=== PATIENT | female | born 1970 | race Caucasian/White ===

== ENCOUNTER 2019-02-15 14:01 | Inpatient (IN) | payer MEDICAID, MEDICARE ==
[2019-02-15 15:35] LABS: URINE SOURCE CLEAN C
[2019-02-15 15:39] LABS: URINE BILIRUBIN NEGATIVE (NEGATIVE); URINE BLOOD NEGATIVE (NEGATIVE); URINE GLUCOSE (UA) NEGATIVE (NEGATIVE); URINE KETONE NEGATIVE (NEGATIVE); URINE LEUKOCYTE ESTERASE NEGATIVE (NEGATIVE); URINE NITRATE NEGATIVE (NEGATIVE); URINE PROTEIN NEGATIVE (NEGATIVE); URINE UROBILINOGEN 0.2 E.U./dL (0.2 - 1.0)
[2019-02-15 15:46] LABS: URINE BACTERIA FEW /hpf (NONE SEEN); URINE CLARITY CLEAR (CLEAR); URINE COLOR YELLOW; URINE EPITHELIAL CELLS FEW /lpf (FEW); URINE MICROSCOPIC INDICATED? YES; URINE RBC 0-2 /hpf (0-5); URINE WBC 0-2 /hpf (0-5)
[2019-02-15 15:56] LABS: AMPHETAMINE URINE NEGATIVE (NEGATIVE); BARBITURATES URINE NEGATIVE (NEGATIVE); BENZODIAZEPINES QUAL URINE NEGATIVE (NEGATIVE); CANNABINOID THC NEGATIVE (NEGATIVE); COCAINE METABOLITE QUAL URINE NEGATIVE (NEGATIVE); METHADONE URINE NEGATIVE (NEGATIVE); METHAMPHETAMINES QUAL URINE NEGATIVE (NEGATIVE); OPIATES (MORPHINE) QUAL. URINE NEGATIVE (NEGATIVE); PHENCYCLIDINE (PCP) URINE NEGATIVE (NEGATIVE); TRICYCLICS (TCA) QUAL. URINE NEGATIVE (NEGATIVE)
--- NOTE | 2019-02-15 16:15 | ED Physician Chart ---
ED Chief Complaint/HPI - Patient Information Date Seen:: 02/15/19 Time Seen:: 14:15 Chief Complaint:: Agitation History of Present Illness:: onset x 2 days of agitation; no report of trauma, H/As, SIs, neck pain, C/P, SOB , Abd. Pain, or urinary s/s Allergies:: Allergies Allergy/AdvReac Type Severity Reaction Status Date / Time clonazepam [From Klonopin] Allergy Verified 02/15/19 14:26 haloperidol [From Haldol] Allergy Verified 02/15/19 14:25 meloxicam [From Mobic] Allergy Verified 02/15/19 14:26 Vitals:: Vital Signs - 8 hr 02/15/19 14:14 Temp 98.5 F HR 86 RR 16 BP 123/82 O2 Sat % 98 Historian:: Patient, EMS Review:: Nurse's Note Reviewed, Old Chart Reviewed, EMS run form Reviewed ED Review of Systems - Review of Systems General/Constitutional: No fever, No chills, No weight loss, No weakness, No diaphoresis, No edema, No loss of appetite Skin: No skin lesions, No rash, No bruising Head: No headache, No light-headedness Eyes: No loss of vision, No pain, No diplopia ENT: No earache, No nasal drainage, No sore throat, No tinnitus Neck: No neck pain, No swelling, No thyromegaly, No stiffness, No mass noted Cardio Vascular: No chest pain, No palpitations, No PND, No orthopnea, No edema Pulmonary: No SOB, No cough, No sputum, No wheezing GI: No nausea, No vomiting, No diarrhea, No pain, No melena, No hematochezia, No constipation, No hematemesis G/U: No dysuria, No frequency, No hematuria, No nacturia Director Clinical Data: No vaginal discharge, No abnormal vaginal bleed, No contraction Musculoskeletal: No bone or joint pain, No back pain, No muscle pain Endocrine: No polyuria, No polydipsia Psychiatric: Prior psych history, Depression, Anxiety, No suicidal ideation, No homicidal ideation, No auditory hallucination, No visual hallucination Hematopoietic: No bruising, No lymphadenopathy Allergic/Immuno: No urticaria, No angioedema Neurological: No syncope, No focal symptoms, No weakness, No paresthesia, No headache, No seizure, No dizziness, No confusion, No vertigo ED Past Medical History - Past Medical History Obtainable: Yes Past Medical History: HTN Family History: HTN Social History: Non Smoker, No Alcohol, No Drug Use, Single, Care Facility Surgical History: None Psychiatricy History: Depression, Bipolar Medication: Reviewed Family Medical History - Family Member Mother History Unknown: Yes ED Physical Exam - Physical Examination General/Constitutional: Awake, Well-developed, well-nourished, Alert, No distress, GCS 15, Non-toxic appearing, Ambulatory Head: Atraumatic Eyes: Lids, conjuctiva normal, PERRL, EOMI Skin: Nl inspection, No rash, No skin lesions, No ecchymosis, Well hydrated, No lymphadenopathy ENMT: External ears, nose nl, TM canals nl, Nasal exam nl, Lips, teeth, gums nl , Oropharynx nl, Tonsils nl Neck: Nontender, Full ROM w/o pain, No JVD, No nuchal rigidity, No bruit, No mass, No stridor Respiratory: Nl effort/Exclusion, Clear to Auscultation, No Wheeze/Rhonchi/Rales Cardio Vascular: RRR, No murmur, gallop, rubs, NL S1 S2, Carotid/Femoral/Distal pulses equal bilaterally GI: No tenderness/rebounding/guarding, No organomegaly, No hernia, Normal BS's, Nondistended, No mass/bruits, No McBurney tenderness : No CVA tenderness Extremities: No tenderness or effusion, Full ROM, normal strength in all extremities, No edema, Normal digits & nails Neuro/Psych: Alert/oriented, DTR's symmetric, Normal sensory exam, Normal motor strength, Judgement/insight normal, Mood normal, Normal gait, No focal deficits Other Neuro/Psych comments:: + Psychomotor Agitation; no SIs; Mood/Affect: Labile Misc: Normal back, No paraspinal tenderness ED Labs/Radiology/EKG Results - Lab Results Results: Laboratory Tests 02/15/19 02/15/19 02/15/19 14:15 15:15 15:15 Urine Source CLEAN C Urine Color YELLOW Urine Clarity CLEAR Urine pH 6.0 Ur Specific [place] <= 1.005 Urine Protein NEGATIVE Urine Glucose (UA) NEGATIVE Urine Ketones NEGATIVE Urine Blood NEGATIVE Urine Nitrate NEGATIVE Urine Bilirubin NEGATIVE Urine Urobilinogen 0.2 Ur Leukocyte Esterase NEGATIVE Urine RBC 0-2 Urine WBC 0-2 Ur Epithelial Cells FEW Urine Bacteria FEW Urine Test NEGATIVE Urine Opiates Screen NEGATIVE Urine Methadone Screen NEGATIVE Ur Barbiturates Screen NEGATIVE Ur Tricyclics Screen NEGATIVE Ur Phencyclidine Scrn NEGATIVE Amphetamines Screen NEGATIVE U Methamphetamines Scrn NEGATIVE U Benzodiazepines Scrn NEGATIVE U Cocaine Metab Screen NEGATIVE U Cannabinoids Screen NEGATIVE Comments:: Reviewed - EKG Interpretations EKG Time:: 15:03 Rate & Rhythm: 79; NSR Comments:: small T-Wave Inversions in V1 and V2; non-specific st-t changes ED Septic Shock - . Is Septic Shock (SBP<90, OR Lactate>4 mmol\L) present?: No - <6hrs of presentation: Vital Signs: Vital Signs - 8 hr 02/15/19 14:14 Temp 98.5 F HR 86 RR 16 BP 123/82 O2 Sat % 98 ED Reassessment (Disposition) - Reassessment Reassessment Condition:: Improved - Diagnosis Diagnosis:: Agitation; Medical Clearance; Bipolar Disorder - Aftercare/Follow up Instructions Aftercare/Follow-Up Instructions:: Counseled pt regarding lab results/diagnosis & need follow up, Counseled pt & family regarding lab results/diagnosis & need follow up - Patient Disposition Discharge/Transfer:: Acute Care w/in this hosp Admitted to:: [facility] Condition at Disposition:: Stable, Improved
[2019-02-15 17:08] VITALS: BP 113/78
[2019-02-15] MEDS ORDERED: Magnesium Hydroxide (MOM) 30 mL UDC PO PRN (18:15)
[2019-02-15] MEDS ORDERED: Maalox 30 mL Cup PO PRN (18:15)
[2019-02-15] MEDS: Atorvastatin Calcium 10 MG TAB PO SCH (21:11)
--- NOTE | 2019-02-15 23:18 | History & Physical ---
ADMIT DATE: 02/15/2019 HISTORY OF PRESENT ILLNESS: The patient is a 48-year-old female with long history of diabetes mellitus, hyperlipidemia, psychosis, admitted to [facility] under Dr. Saul's service. The patient denies any chest pain, shortness of breath, nausea, vomiting, fever or chills. PAST MEDICAL HISTORY: Significant for diabetes mellitus, hyperlipidemia, chronic constipation, psychosis. PAST SURGICAL HISTORY: No recent surgery. ALLERGIES: None. MEDICATIONS: Follow admission reconciliation. SOCIAL HISTORY: No smoker, no alcohol, no drug. FAMILY HISTORY: Noncontributory. REVIEW OF SYSTEMS: RENAL SYSTEM: No history of chronic renal disorder. CARDIOVASCULAR SYSTEM: No coronary artery disease. ENDOCRINE SYSTEM: She has diabetes mellitus. GASTROINTESTINAL SYSTEM: She has chronic constipation. NEUROLOGICAL SYSTEM: No seizure disorder. SKELETOMUSCULAR SYSTEM: No muscular dystrophy. HEMATOLOGIC SYSTEM: No bleeding tendencies. RESPIRATORY SYSTEM: No asthma. GENITOURINARY: No dysuria or hematuria. PHYSICAL EXAMINATION: GENERAL: She is awake, alert. VITAL SIGNS: Temperature is 97.2, heart rate 74, blood pressure 112/75. HEENT: Normocephalic. Pupils are reactive to light and accommodation. Sclerae clear. NECK: Supple. Negative for lymphadenopathy, JVD or bruit. CHEST: Bilaterally normal. No rales, rhonchi or wheezing. HEART: S1, S2 normal. No murmur or gallop. ABDOMEN: Soft, bowel sounds positive. EXTREMITIES: No edema. BACK: Normal vertebrae. BREASTS, PELVIC AND RECTAL: Done by primary physician, no complaint. NEUROLOGIC: She is awake, alert, mildly confused. No focal muscle deficits. Cranial nerves 2 through 12 are intact. ASSESSMENT: 1. Diabetes mellitus. 2. Hyperlipidemia. 3. Constipation. 4. Psychosis. PLAN: The patient admitted to the hospital under Dr. Saul's service. Medical problem addressed during this hospitalization is psychosis. Medical problems addressed at discharge, diabetes mellitus, hyperlipidemia. The patient is medically stable for activity. Thank you Dr. Saul for asking me to see your patient. The patient is a full code. JOB# [id number]
[2019-02-16 07:26] LABS: % BASOPHILS 0.8 % (0.0-2.0); % LYMPHOCYTES 30.1 % (20.0-50.0); % MONOCYTES 9.9 % (2.0-10.0); % NEUTROPHILS 57.2 % (40.0-80.0); BASOPHILE ABSOLUTE 0.1 Th/cumm (0-0.2); EOSINOPHILE ABSOLUTE 0.1 Th/cmm (0.1-0.4); HEMATOCRIT 42.4 % (41.0-60); HEMOGLOBIN 13.9 gm/dL (12-16); MEAN CELL VOLUME 92.9 fl (81-100); MEAN CORPUSCULAR HEMOGLOBIN 30.4 pg (27.0-31.0); MEAN CORPUSCULAR HGB CONC 32.7 pg (28.0-36.0); MONOCYTE ABSOLUTE 0.6 Th/cmm (0.3-1.0); NEUTROPHILE ABSOLUTE 3.7 Th/cmm (1.8-8.0); PLATELET COUNT 315 Th/cmm (150-400); RED BLOOD COUNT 4.56 Mil/cmm (3.80-5.10); RED CELL DISTRIBUTION WIDTH 12.3 % (11.5-20.0); WHITE BLOOD COUNT 6.5 Th/cmm (4.8-10.8)
[2019-02-16 07:44] LABS: ALB/GLOB RATIO 1.5 (1.0-1.8); ALBUMIN 4.6 gm/dL (3.7-5.3); ALKALINE PHOSPHATASE 74 U/L (34-104); ANION GAP 13.6 (7.0-16.0); BILIRUBIN,TOTAL 0.3 mg/dL (0.3-1.0); BUN - UREA NITROGEN 7 mg/dL (7-25); CALCIUM SERUM 9.8 mg/dL (8.6-10.3); CARBON DIOXIDE 23.5 mEq/L (21.0-31.0); CHLORIDE 97 mEq/L (98-107); CHOLESTEROL 156 mg/dL (<200); CREATININE - SERUM 0.6 mg/dL (0.6-1.2); GFR AFRICAN-AMERICAN > 60.0 ml/min (>90); GFR NON AFRICAN-AMERICAN > 60.0 ml/min; GLUCOSE 176 mg/dL (70-105); HDL -HIGH DENSITY LIPOPROTEIN 57 mg/dL (23-92); POTASSIUM SERUM 4.1 mEq/L (3.5-5.1); SGOT 19 U/L (13-39); SGPT/ALT 19 U/L (7-52); SODIUM SERUM 130 mEq/L (136-145); TOTAL PROTEIN,SERUM 7.7 gm/dL (6.0-8.3); TRIGLYCERIDES 114 mg/dL (<150)
[2019-02-16] MEDS: Multivitamin Tab PO SCH (08:27)
[2019-02-16 09:52] LABS: ACETAMINOPHEN < 10.0 ug/mL (10.0-30.0)
[2019-02-16] MEDS: Atorvastatin Calcium 10 MG TAB PO SCH (21:12)
--- NOTE | 2019-02-16 21:12 | Internal Medicine Prog Note ---
Internal Medicine Subjective - Subjective Service Date: 02/16/19 Patient seen and examined:: with staff Patient is:: awake, verbal, in bed, talking, confused Per staff patient has:: no adverse event Internal Medicine Objective - Results Result Diagrams: 02/16/19 07:00 02/16/19 07:00 Recent Labs: Laboratory Last Values WBC 6.5 Th/cmm (4.8-10.8) 02/16/19 07:00 RBC 4.56 Mil/cmm (3.80-5.10) 02/16/19 07:00 Hgb 13.9 gm/dL (12-16) 02/16/19 07:00 Hct 42.4 % (41.0-60) 02/16/19 07:00 MCV 92.9 fl (81-100) 02/16/19 07:00 MCH 30.4 pg (27.0-31.0) 02/16/19 07:00 MCHC Differential 32.7 pg (28.0-36.0) 02/16/19 07:00 RDW 12.3 % (11.5-20.0) 02/16/19 07:00 Plt Count 315 Th/cmm (150-400) 02/16/19 07:00 MPV 7.3 fl 02/16/19 07:00 Neutrophils % 57.2 % (40.0-80.0) 02/16/19 07:00 Lymphocytes % 30.1 % (20.0-50.0) 02/16/19 07:00 Monocytes % 9.9 % (2.0-10.0) 02/16/19 07:00 Eosinophils % 2.0 % (0.0-5.0) 02/16/19 07:00 Basophils % 0.8 % (0.0-2.0) 02/16/19 07:00 Sodium 130 mEq/L (136-145) L 02/16/19 07:00 Potassium 4.1 mEq/L (3.5-5.1) 02/16/19 07:00 Chloride 97 mEq/L (98-107) L 02/16/19 07:00 Carbon Dioxide 23.5 mEq/L (21.0-31.0) 02/16/19 07:00 Anion Gap 13.6 (7.0-16.0) 02/16/19 07:00 BUN 7 mg/dL (7-25) 02/16/19 07:00 Creatinine 0.6 mg/dL (0.6-1.2) 02/16/19 07:00 Est GFR ( Amer) > 60.0 ml/min (>90) 02/16/19 07:00 Est GFR (Non-Af Amer) > 60.0 ml/min 02/16/19 07:00 BUN/Creatinine Ratio 11.7 02/16/19 07:00 Glucose 176 mg/dL (70-105) H 02/16/19 07:00 Calcium 9.8 mg/dL (8.6-10.3) 02/16/19 07:00 Total Bilirubin 0.3 mg/dL (0.3-1.0) 02/16/19 07:00 AST 19 U/L (13-39) 02/16/19 07:00 ALT 19 U/L (7-52) 02/16/19 07:00 Alkaline Phosphatase 74 U/L (34-104) 02/16/19 07:00 Troponin I < 0.01 ng/mL (0.01-0.05) L 02/16/19 07:00 Total Protein 7.7 gm/dL (6.0-8.3) 02/16/19 07:00 Albumin 4.6 gm/dL (3.7-5.3) 02/16/19 07:00 Globulin 3.1 gm/dL 02/16/19 07:00 Albumin/Globulin Ratio 1.5 (1.0-1.8) 02/16/19 07:00 Triglycerides 114 mg/dL (<150) 02/16/19 07:00 Cholesterol 156 mg/dL (<200) 02/16/19 07:00 LDL Cholesterol Direct 77 mg/dL (75-193) 02/16/19 07:00 HDL Cholesterol 57 mg/dL (23-92) 02/16/19 07:00 TSH 1.25 uIU/ml (0.34-5.60) 02/16/19 07:00 Serum , Qual NEGATIVE (NEGATIVE) 02/16/19 07:00 Urine Source CLEAN C 02/15/19 15:15 Urine Color YELLOW 02/15/19 15:15 Urine Clarity CLEAR (CLEAR) 02/15/19 15:15 Urine pH 6.0 (4.6 - 8.0) 02/15/19 15:15 Ur Specific [place] <= 1.005 (1.005-1.030) 02/15/19 15:15 Urine Protein NEGATIVE mg/dL (NEGATIVE) 02/15/19 15:15 Urine Glucose (UA) NEGATIVE mg/dL (NEGATIVE) 02/15/19 15:15 Urine Ketones NEGATIVE mg/dL (NEGATIVE) 02/15/19 15:15 Urine Blood NEGATIVE (NEGATIVE) 02/15/19 15:15 Urine Nitrate NEGATIVE (NEGATIVE) 02/15/19 15:15 Urine Bilirubin NEGATIVE (NEGATIVE) 02/15/19 15:15 Urine Urobilinogen 0.2 E.U./dL (0.2 - 1.0) 02/15/19 15:15 Ur Leukocyte Esterase NEGATIVE (NEGATIVE) 02/15/19 15:15 Urine RBC 0-2 /hpf (0-5) 02/15/19 15:15 Urine WBC 0-2 /hpf (0-5) 02/15/19 15:15 Ur Epithelial Cells FEW /lpf (FEW) 02/15/19 15:15 Urine Bacteria FEW /hpf (NONE SEEN) 02/15/19 15:15 Urine Test NEGATIVE 02/15/19 14:15 Salicylates < 25.0 mg/L (30.0-100.0) L 02/16/19 07:00 Urine Opiates Screen NEGATIVE (NEGATIVE) 02/15/19 15:15 Urine Methadone Screen NEGATIVE (NEGATIVE) 02/15/19 15:15 Acetaminophen < 10.0 ug/mL (10.0-30.0) L 02/16/19 07:00 Ur Barbiturates Screen NEGATIVE (NEGATIVE) 02/15/19 15:15 Ur Tricyclics Screen NEGATIVE (NEGATIVE) 02/15/19 15:15 Ur Phencyclidine Scrn NEGATIVE (NEGATIVE) 02/15/19 15:15 Amphetamines Screen NEGATIVE (NEGATIVE) 02/15/19 15:15 U Methamphetamines Scrn NEGATIVE (NEGATIVE) 02/15/19 15:15 U Benzodiazepines Scrn NEGATIVE (NEGATIVE) 02/15/19 15:15 U Cocaine Metab Screen NEGATIVE (NEGATIVE) 02/15/19 15:15 U Cannabinoids Screen NEGATIVE (NEGATIVE) 02/15/19 15:15 Ethyl Alcohol < 10 mg/dL (0-10) 02/16/19 07:00 - Physical Exam Vitals and I&O: Vital Signs Temp 97.3 F 02/16/19 14:00 Pulse 78 02/16/19 14:00 Resp 20 02/16/19 14:00 BP 132/88 02/16/19 14:00 Pulse Ox 97 02/16/19 14:00 Intake & Output 02/16/19 02/16/19 02/17/19 06:59 18:59 06:59 Intake Total 300 1200 Balance 300 1200 Intake: Oral 300 1200 Other: # Voids 3 # Bowel Movements 0 1 Active Medications: Current Medications Acetaminophen (Tylenol) 650 mg PO Q4HR PRN PRN Reason: Mild Pain / Temp above 100 Stop: 04/16/19 18:14 Al Hydrox/Mg Hydrox/Simethicone (Maalox) 30 ml PO Q4HR PRN PRN Reason: GI DISTRESS Stop: 04/16/19 18:14 Atorvastatin Calcium (Lipitor) 10 mg PO HS [facility]; Protocol Stop: 04/16/19 20:59 Last Admin: 02/15/19 21:11 Dose: 10 mg Carbamazepine (Tegretol) 200 mg PO TID [facility]; Protocol Stop: 04/16/19 20:59 Docusate Sodium (Colace) 250 mg PO BID [facility] Stop: 04/17/19 08:59 Last Admin: 02/16/19 16:19 Dose: Not Given Fluphenazine HCl (Prolixin) 5 mg PO DAILY [facility]; Protocol Stop: 04/17/19 08:59 Glipizide (Glucotrol) 5 mg PO BID [facility] Stop: 04/17/19 08:59 Last Admin: 02/16/19 16:20 Dose: 5 mg Lorazepam (Ativan) 0.5 mg PO Q4HR PRN; Protocol PRN Reason: Agitation Stop: 03/17/19 18:14 Magnesium Hydroxide (Milk Of Magnesia) 30 ml PO HS PRN PRN Reason: Constipation Metformin HCl (Glucophage) 1,000 mg PO BID [facility] Stop: 04/17/19 08:59 Last Admin: 02/16/19 16:20 Dose: 1,000 mg Miscellaneous (Clinical Monitoring) 1 ea [facility] DAILY PRN PRN Reason: RENAL DOSING (METFORMIN) Stop: 04/17/19 07:34 Multivitamins/Vitamin C (Theragran) 1 tab PO DAILY [facility] Stop: 04/17/19 08:59 Last Admin: 02/16/19 08:27 Dose: 1 tab Olanzapine (Zyprexa) 10 mg PO DAILY [facility]; Protocol Stop: 04/17/19 08:59 Olanzapine (Zyprexa) 15 mg PO HS [facility]; Protocol Stop: 04/16/19 20:59 Zolpidem Tartrate (Ambien) 5 mg PO HS PRN PRN Reason: Insomnia Stop: 04/16/19 18:14 Last Admin: 02/15/19 21:11 Dose: 5 mg General: demented HEENT: NC/AT, PERRLA, EOMI, anicteric sclerae, throat clear Neck: Supple, No JVD, No thyromegaly, +2 carotid pulse wo bruit, No LAD Abdomen: soft, non-tender, non-distended Extremities: clear Neurological: no change Internal Medicine Assmt/Plan - Assessment Assessment: 1.DM. 2.HYPERLIPIDEMIA. 3.CONSTIPATION. 4.PSYCHOSIS - Plan Plan: CONTINUE ON CURRENT MEDICATION AND DIET
[2019-02-17 08:05] LABS: A1C 5.6 % (4.8-5.6)
[2019-02-17] MEDS: Multivitamin Tab PO SCH (09:03)
[2019-02-17] MEDS: Atorvastatin Calcium 10 MG TAB PO SCH (20:30)
--- NOTE | 2019-02-17 23:19 | Psychiatric Evaluation ---
DATE OF SERVICE: 02/15/2019 INITIAL EVALUATION AND MENTAL STATUS EXAMINATION AGE: 48. SEX: Female. PHYSICIAN: Dr. Saul. CHIEF COMPLAINT: Aggressive behavior, was yelling and screaming. HISTORY OF PRESENT ILLNESS: The patient is a 48-year-old female who lives in [facility]. The patient was transferred to [facility] because of increased yelling and screaming and the patient is severely aggressive and agitated. The patient also is trying to strike out at staff and peers and also is non-directable. She also is still suspicious and paranoid. The patient also is still actively responding to stimuli and is nonsensical during the interview. PAST PSYCHIATRIC HISTORY: The patient has history of psychosis and what seems to be a schizophrenic disorder. PAST MEDICAL HISTORY: The patient has diabetes mellitus, noninsulin and also COPD, muscle atrophy and anemia. SOCIAL HISTORY: The patient lives in [facility]. No known alcohol or drug use. ALLERGIES: HALDOL, KLONOPIN and MOBIC. MENTAL STATUS EXAMINATION: The patient appears her stated age. Anxious. Irritable mood. Flat affect. Disheveled. Actively responding to stimuli. The patient did not answer question regarding hallucinations or delusions, but actively responding to stimuli. The patient denies suicidal or homicidal ideations. The patient is alert and oriented to time, place, person and situation. Intact immediate, recent and remote memories. Poor insight and poor judgment. ASSESSMENT: PRIMARY DIAGNOSIS: Schizophrenic disorder, severe, with psychotic features. TREATMENT PLAN: We will monitor the patient's behavior and condition closely. We will start individual milieu psychotherapy. We will monitor psychotropic medications. ESTIMATED LENGTH OF STAY: 5-7 days. THE PATIENT'S STRENGTHS AND WEAKNESSES: The patient's strength is not clear, except that she is in relatively fair health and to have support from staff in [place]. Weakness is her poor impulse control and her agitation. AFTER DISCHARGE PLAN: The patient will return to [place] with plans for outpatient treatment and followup there. CRITERIA FOR DISCHARGE: The patient will not be psychotic and will stabilize psychotropic medications and will have better impulse control and establish outpatient treatment plans. [facility]# [id number]
--- NOTE | 2019-02-17 23:38 | Internal Medicine Prog Note ---
Internal Medicine Subjective - Subjective Service Date: 02/17/19 Patient seen and examined:: without staff (SHE FEELS WELL) Patient is:: awake, verbal, in bed, talking, confused Per staff patient has:: no adverse event Internal Medicine Objective - Results Result Diagrams: 02/16/19 07:00 02/16/19 07:00 Recent Labs: Laboratory Last Values WBC 6.5 Th/cmm (4.8-10.8) 02/16/19 07:00 RBC 4.56 Mil/cmm (3.80-5.10) 02/16/19 07:00 Hgb 13.9 gm/dL (12-16) 02/16/19 07:00 Hct 42.4 % (41.0-60) 02/16/19 07:00 MCV 92.9 fl (81-100) 02/16/19 07:00 MCH 30.4 pg (27.0-31.0) 02/16/19 07:00 MCHC Differential 32.7 pg (28.0-36.0) 02/16/19 07:00 RDW 12.3 % (11.5-20.0) 02/16/19 07:00 Plt Count 315 Th/cmm (150-400) 02/16/19 07:00 MPV 7.3 fl 02/16/19 07:00 Neutrophils % 57.2 % (40.0-80.0) 02/16/19 07:00 Lymphocytes % 30.1 % (20.0-50.0) 02/16/19 07:00 Monocytes % 9.9 % (2.0-10.0) 02/16/19 07:00 Eosinophils % 2.0 % (0.0-5.0) 02/16/19 07:00 Basophils % 0.8 % (0.0-2.0) 02/16/19 07:00 Sodium 130 mEq/L (136-145) L 02/16/19 07:00 Potassium 4.1 mEq/L (3.5-5.1) 02/16/19 07:00 Chloride 97 mEq/L (98-107) L 02/16/19 07:00 Carbon Dioxide 23.5 mEq/L (21.0-31.0) 02/16/19 07:00 Anion Gap 13.6 (7.0-16.0) 02/16/19 07:00 BUN 7 mg/dL (7-25) 02/16/19 07:00 Creatinine 0.6 mg/dL (0.6-1.2) 02/16/19 07:00 Est GFR ( Amer) > 60.0 ml/min (>90) 02/16/19 07:00 Est GFR (Non-Af Amer) > 60.0 ml/min 02/16/19 07:00 BUN/Creatinine Ratio 11.7 02/16/19 07:00 Glucose 176 mg/dL (70-105) H 02/16/19 07:00 Calcium 9.8 mg/dL (8.6-10.3) 02/16/19 07:00 Total Bilirubin 0.3 mg/dL (0.3-1.0) 02/16/19 07:00 AST 19 U/L (13-39) 02/16/19 07:00 ALT 19 U/L (7-52) 02/16/19 07:00 Alkaline Phosphatase 74 U/L (34-104) 02/16/19 07:00 Troponin I < 0.01 ng/mL (0.01-0.05) L 02/16/19 07:00 Total Protein 7.7 gm/dL (6.0-8.3) 02/16/19 07:00 Albumin 4.6 gm/dL (3.7-5.3) 02/16/19 07:00 Globulin 3.1 gm/dL 02/16/19 07:00 Albumin/Globulin Ratio 1.5 (1.0-1.8) 02/16/19 07:00 Triglycerides 114 mg/dL (<150) 02/16/19 07:00 Cholesterol 156 mg/dL (<200) 02/16/19 07:00 LDL Cholesterol Direct 77 mg/dL (75-193) 02/16/19 07:00 HDL Cholesterol 57 mg/dL (23-92) 02/16/19 07:00 TSH 1.25 uIU/ml (0.34-5.60) 02/16/19 07:00 Serum , Qual NEGATIVE (NEGATIVE) 02/16/19 07:00 Urine Source CLEAN C 02/15/19 15:15 Urine Color YELLOW 02/15/19 15:15 Urine Clarity CLEAR (CLEAR) 02/15/19 15:15 Urine pH 6.0 (4.6 - 8.0) 02/15/19 15:15 Ur Specific [place] <= 1.005 (1.005-1.030) 02/15/19 15:15 Urine Protein NEGATIVE mg/dL (NEGATIVE) 02/15/19 15:15 Urine Glucose (UA) NEGATIVE mg/dL (NEGATIVE) 02/15/19 15:15 Urine Ketones NEGATIVE mg/dL (NEGATIVE) 02/15/19 15:15 Urine Blood NEGATIVE (NEGATIVE) 02/15/19 15:15 Urine Nitrate NEGATIVE (NEGATIVE) 02/15/19 15:15 Urine Bilirubin NEGATIVE (NEGATIVE) 02/15/19 15:15 Urine Urobilinogen 0.2 E.U./dL (0.2 - 1.0) 02/15/19 15:15 Ur Leukocyte Esterase NEGATIVE (NEGATIVE) 02/15/19 15:15 Urine RBC 0-2 /hpf (0-5) 02/15/19 15:15 Urine WBC 0-2 /hpf (0-5) 02/15/19 15:15 Ur Epithelial Cells FEW /lpf (FEW) 02/15/19 15:15 Urine Bacteria FEW /hpf (NONE SEEN) 02/15/19 15:15 Urine Test NEGATIVE 02/15/19 14:15 Salicylates < 25.0 mg/L (30.0-100.0) L 02/16/19 07:00 Urine Opiates Screen NEGATIVE (NEGATIVE) 02/15/19 15:15 Urine Methadone Screen NEGATIVE (NEGATIVE) 02/15/19 15:15 Acetaminophen < 10.0 ug/mL (10.0-30.0) L 02/16/19 07:00 Ur Barbiturates Screen NEGATIVE (NEGATIVE) 02/15/19 15:15 Ur Tricyclics Screen NEGATIVE (NEGATIVE) 02/15/19 15:15 Ur Phencyclidine Scrn NEGATIVE (NEGATIVE) 02/15/19 15:15 Amphetamines Screen NEGATIVE (NEGATIVE) 02/15/19 15:15 U Methamphetamines Scrn NEGATIVE (NEGATIVE) 02/15/19 15:15 U Benzodiazepines Scrn NEGATIVE (NEGATIVE) 02/15/19 15:15 U Cocaine Metab Screen NEGATIVE (NEGATIVE) 02/15/19 15:15 U Cannabinoids Screen NEGATIVE (NEGATIVE) 02/15/19 15:15 Ethyl Alcohol < 10 mg/dL (0-10) 02/16/19 07:00 RPR NONREACTIVE (NONREACTIVE) 02/16/19 07:00 - Physical Exam Vitals and I&O: Vital Signs Temp 98.8 F 02/17/19 21:05 Pulse 77 02/17/19 21:05 Resp 19 02/17/19 21:05 BP 114/71 02/17/19 21:05 Pulse Ox 99 02/17/19 21:05 Intake & Output 02/17/19 02/17/19 02/18/19 06:59 18:59 06:59 Intake Total 1200 240 Balance 1200 240 Intake: Oral 1200 240 Other: # Voids 5 2 # Bowel Movements 1 Active Medications: Current Medications Acetaminophen (Tylenol) 650 mg PO Q4HR PRN PRN Reason: Mild Pain / Temp above 100 Stop: 04/16/19 18:14 Al Hydrox/Mg Hydrox/Simethicone (Maalox) 30 ml PO Q4HR PRN PRN Reason: GI DISTRESS Stop: 04/16/19 18:14 Atorvastatin Calcium (Lipitor) 10 mg PO HS [facility]; Protocol Stop: 04/16/19 20:59 Last Admin: 02/17/19 20:30 Dose: 10 mg Carbamazepine (Tegretol) 200 mg PO TID [facility]; Protocol Stop: 04/18/19 04:59 Last Admin: 02/17/19 20:30 Dose: 200 mg Docusate Sodium (Colace) 250 mg PO BID [facility] Stop: 04/17/19 08:59 Last Admin: 02/17/19 17:06 Dose: Not Given Fluphenazine HCl (Prolixin) 5 mg PO DAILY [facility]; Protocol Stop: 04/17/19 08:59 Last Admin: 02/17/19 09:02 Dose: 5 mg Glipizide (Glucotrol) 5 mg PO BID [facility] Stop: 04/17/19 08:59 Last Admin: 02/17/19 17:06 Dose: 5 mg Lorazepam (Ativan) 0.5 mg PO Q4HR PRN; Protocol PRN Reason: Agitation Stop: 03/17/19 18:14 Magnesium Hydroxide (Milk Of Magnesia) 30 ml PO HS PRN PRN Reason: Constipation Metformin HCl (Glucophage) 1,000 mg PO BID [facility] Stop: 04/17/19 08:59 Last Admin: 02/17/19 17:06 Dose: 1,000 mg Miscellaneous (Clinical Monitoring) 1 ea [facility] DAILY PRN PRN Reason: RENAL DOSING (METFORMIN) Stop: 04/17/19 07:34 Multivitamins/Vitamin C (Theragran) 1 tab PO DAILY [facility] Stop: 04/17/19 08:59 Last Admin: 02/17/19 09:03 Dose: 1 tab Olanzapine (Zyprexa) 10 mg PO DAILY [facility]; Protocol Stop: 04/17/19 08:59 Last Admin: 02/17/19 09:03 Dose: Not Given Olanzapine (Zyprexa) 15 mg PO HS [facility]; Protocol Stop: 04/16/19 20:59 Last Admin: 02/17/19 20:30 Dose: 15 mg Zolpidem Tartrate (Ambien) 5 mg PO HS PRN PRN Reason: Insomnia Stop: 04/16/19 18:14 Last Admin: 02/17/19 21:14 Dose: 5 mg General: demented HEENT: NC/AT, PERRLA, EOMI, anicteric sclerae, throat clear Neck: Supple, No JVD, No thyromegaly, +2 carotid pulse wo bruit, No LAD Abdomen: soft, non-tender, non-distended Extremities: clear Neurological: no change Internal Medicine Assmt/Plan - Assessment Assessment: 1.DM. 2.HYPERLIPIDEMIA. 3.CONSTIPATION. 4.PSYCHOSIS - Plan Plan: CONTINUE ON CURRENT MEDICATION AND DIET
[2019-02-18] MEDS: Multivitamin Tab PO SCH (08:50)
--- NOTE | 2019-02-18 19:24 | Internal Medicine Prog Note ---
Internal Medicine Subjective - Subjective Service Date: 02/18/19 Patient seen and examined:: with staff (SHE IS DOING WELL) Patient is:: awake, verbal, in bed, talking, confused Per staff patient has:: no adverse event Internal Medicine Objective - Results Result Diagrams: 02/16/19 07:00 02/16/19 07:00 Recent Labs: Laboratory Last Values WBC 6.5 Th/cmm (4.8-10.8) 02/16/19 07:00 RBC 4.56 Mil/cmm (3.80-5.10) 02/16/19 07:00 Hgb 13.9 gm/dL (12-16) 02/16/19 07:00 Hct 42.4 % (41.0-60) 02/16/19 07:00 MCV 92.9 fl (81-100) 02/16/19 07:00 MCH 30.4 pg (27.0-31.0) 02/16/19 07:00 MCHC Differential 32.7 pg (28.0-36.0) 02/16/19 07:00 RDW 12.3 % (11.5-20.0) 02/16/19 07:00 Plt Count 315 Th/cmm (150-400) 02/16/19 07:00 MPV 7.3 fl 02/16/19 07:00 Neutrophils % 57.2 % (40.0-80.0) 02/16/19 07:00 Lymphocytes % 30.1 % (20.0-50.0) 02/16/19 07:00 Monocytes % 9.9 % (2.0-10.0) 02/16/19 07:00 Eosinophils % 2.0 % (0.0-5.0) 02/16/19 07:00 Basophils % 0.8 % (0.0-2.0) 02/16/19 07:00 Sodium 130 mEq/L (136-145) L 02/16/19 07:00 Potassium 4.1 mEq/L (3.5-5.1) 02/16/19 07:00 Chloride 97 mEq/L (98-107) L 02/16/19 07:00 Carbon Dioxide 23.5 mEq/L (21.0-31.0) 02/16/19 07:00 Anion Gap 13.6 (7.0-16.0) 02/16/19 07:00 BUN 7 mg/dL (7-25) 02/16/19 07:00 Creatinine 0.6 mg/dL (0.6-1.2) 02/16/19 07:00 Est GFR ( Amer) > 60.0 ml/min (>90) 02/16/19 07:00 Est GFR (Non-Af Amer) > 60.0 ml/min 02/16/19 07:00 BUN/Creatinine Ratio 11.7 02/16/19 07:00 Glucose 176 mg/dL (70-105) H 02/16/19 07:00 Calcium 9.8 mg/dL (8.6-10.3) 02/16/19 07:00 Total Bilirubin 0.3 mg/dL (0.3-1.0) 02/16/19 07:00 AST 19 U/L (13-39) 02/16/19 07:00 ALT 19 U/L (7-52) 02/16/19 07:00 Alkaline Phosphatase 74 U/L (34-104) 02/16/19 07:00 Troponin I < 0.01 ng/mL (0.01-0.05) L 02/16/19 07:00 Total Protein 7.7 gm/dL (6.0-8.3) 02/16/19 07:00 Albumin 4.6 gm/dL (3.7-5.3) 02/16/19 07:00 Globulin 3.1 gm/dL 02/16/19 07:00 Albumin/Globulin Ratio 1.5 (1.0-1.8) 02/16/19 07:00 Triglycerides 114 mg/dL (<150) 02/16/19 07:00 Cholesterol 156 mg/dL (<200) 02/16/19 07:00 LDL Cholesterol Direct 77 mg/dL (75-193) 02/16/19 07:00 HDL Cholesterol 57 mg/dL (23-92) 02/16/19 07:00 TSH 1.25 uIU/ml (0.34-5.60) 02/16/19 07:00 Serum , Qual NEGATIVE (NEGATIVE) 02/16/19 07:00 Urine Source CLEAN C 02/15/19 15:15 Urine Color YELLOW 02/15/19 15:15 Urine Clarity CLEAR (CLEAR) 02/15/19 15:15 Urine pH 6.0 (4.6 - 8.0) 02/15/19 15:15 Ur Specific [place] <= 1.005 (1.005-1.030) 02/15/19 15:15 Urine Protein NEGATIVE mg/dL (NEGATIVE) 02/15/19 15:15 Urine Glucose (UA) NEGATIVE mg/dL (NEGATIVE) 02/15/19 15:15 Urine Ketones NEGATIVE mg/dL (NEGATIVE) 02/15/19 15:15 Urine Blood NEGATIVE (NEGATIVE) 02/15/19 15:15 Urine Nitrate NEGATIVE (NEGATIVE) 02/15/19 15:15 Urine Bilirubin NEGATIVE (NEGATIVE) 02/15/19 15:15 Urine Urobilinogen 0.2 E.U./dL (0.2 - 1.0) 02/15/19 15:15 Ur Leukocyte Esterase NEGATIVE (NEGATIVE) 02/15/19 15:15 Urine RBC 0-2 /hpf (0-5) 02/15/19 15:15 Urine WBC 0-2 /hpf (0-5) 02/15/19 15:15 Ur Epithelial Cells FEW /lpf (FEW) 02/15/19 15:15 Urine Bacteria FEW /hpf (NONE SEEN) 02/15/19 15:15 Urine Test NEGATIVE 02/15/19 14:15 Salicylates < 25.0 mg/L (30.0-100.0) L 02/16/19 07:00 Urine Opiates Screen NEGATIVE (NEGATIVE) 02/15/19 15:15 Urine Methadone Screen NEGATIVE (NEGATIVE) 02/15/19 15:15 Acetaminophen < 10.0 ug/mL (10.0-30.0) L 02/16/19 07:00 Ur Barbiturates Screen NEGATIVE (NEGATIVE) 02/15/19 15:15 Ur Tricyclics Screen NEGATIVE (NEGATIVE) 02/15/19 15:15 Ur Phencyclidine Scrn NEGATIVE (NEGATIVE) 02/15/19 15:15 Amphetamines Screen NEGATIVE (NEGATIVE) 02/15/19 15:15 U Methamphetamines Scrn NEGATIVE (NEGATIVE) 02/15/19 15:15 U Benzodiazepines Scrn NEGATIVE (NEGATIVE) 02/15/19 15:15 U Cocaine Metab Screen NEGATIVE (NEGATIVE) 02/15/19 15:15 U Cannabinoids Screen NEGATIVE (NEGATIVE) 02/15/19 15:15 Ethyl Alcohol < 10 mg/dL (0-10) 02/16/19 07:00 RPR NONREACTIVE (NONREACTIVE) 02/16/19 07:00 - Physical Exam Vitals and I&O: Vital Signs Temp 97.6 F 02/18/19 14:00 Pulse 100 02/18/19 14:00 Resp 18 02/18/19 14:00 BP 126/81 02/18/19 14:00 Pulse Ox 99 02/18/19 14:00 Intake & Output 02/18/19 02/18/19 02/19/19 06:59 18:59 06:59 Intake Total 480 1200 Balance 480 1200 Intake: Oral 480 1080 Other 120 Other: # Voids 2 3 # Bowel Movements 0 Active Medications: Current Medications Acetaminophen (Tylenol) 650 mg PO Q4HR PRN PRN Reason: Mild Pain / Temp above 100 Stop: 04/16/19 18:14 Al Hydrox/Mg Hydrox/Simethicone (Maalox) 30 ml PO Q4HR PRN PRN Reason: GI DISTRESS Stop: 04/16/19 18:14 Atorvastatin Calcium (Lipitor) 10 mg PO HS [facility]; Protocol Stop: 04/16/19 20:59 Last Admin: 02/17/19 20:30 Dose: 10 mg Carbamazepine (Tegretol) 200 mg PO TID [facility]; Protocol Stop: 04/18/19 04:59 Last Admin: 02/18/19 14:08 Dose: Not Given Docusate Sodium (Colace) 250 mg PO BID [facility] Stop: 04/17/19 08:59 Last Admin: 02/18/19 16:38 Dose: Not Given Fluphenazine HCl (Prolixin) 5 mg PO DAILY [facility]; Protocol Stop: 04/17/19 08:59 Last Admin: 02/18/19 08:49 Dose: 5 mg Glipizide (Glucotrol) 5 mg PO BID [facility] Stop: 04/17/19 08:59 Last Admin: 02/18/19 16:38 Dose: 5 mg Lorazepam (Ativan) 0.5 mg PO Q4HR PRN; Protocol PRN Reason: Agitation Stop: 03/17/19 18:14 Magnesium Hydroxide (Milk Of Magnesia) 30 ml PO HS PRN PRN Reason: Constipation Metformin HCl (Glucophage) 1,000 mg PO BID [facility] Stop: 04/17/19 08:59 Last Admin: 02/18/19 16:38 Dose: 1,000 mg Miscellaneous (Clinical Monitoring) 1 ea MC DAILY PRN PRN Reason: RENAL DOSING (METFORMIN) Stop: 04/17/19 07:34 Multivitamins/Vitamin C (Theragran) 1 tab PO DAILY [facility] Stop: 04/17/19 08:59 Last Admin: 02/18/19 08:50 Dose: 1 tab Olanzapine (Zyprexa) 10 mg PO DAILY [facility]; Protocol Stop: 04/17/19 08:59 Last Admin: 02/18/19 08:48 Dose: 10 mg Olanzapine (Zyprexa) 15 mg PO HS [facility]; Protocol Stop: 04/16/19 20:59 Last Admin: 02/17/19 20:30 Dose: 15 mg Zolpidem Tartrate (Ambien) 5 mg PO HS PRN PRN Reason: Insomnia Stop: 04/16/19 18:14 Last Admin: 02/17/19 21:14 Dose: 5 mg General: demented HEENT: NC/AT, PERRLA, EOMI, anicteric sclerae, throat clear Neck: Supple, No JVD, No thyromegaly, +2 carotid pulse wo bruit, No LAD Abdomen: soft, non-tender, non-distended Extremities: clear Neurological: no change Internal Medicine Assmt/Plan - Assessment Assessment: 1.DM. 2.HYPERLIPIDEMIA. 3.CONSTIPATION. 4.PSYCHOSIS - Plan Plan: CONTINUE ON CURRENT MEDICATION AND DIET
[2019-02-18] MEDS: Atorvastatin Calcium 10 MG TAB PO SCH (21:30)
--- NOTE | 2019-02-18 22:58 | Progress Notes ---
DATE: 02/18/2019 FOLLOWUP NOTE A 48-year-old female living at [facility] transferred due to increased yelling episodes, stating that she is here for "major trauma," "psycho trauma," "spiritual incantations," "body changes," disorganized, not making any sense. "I healed my mind," "I resumed my sanity." The patient was apparently aggressive, striking out at staff, still psychotic appearing, disorganized, tangential, talking nonsense. Medications were noted. Ongoing safety concerns, ongoing concerns given her ongoing bizarre behaviors, disorganized thought processes. We will continue to monitor. Medications were noted including dosages and frequency. JOB# [id number]
[2019-02-19] MEDS: Multivitamin Tab PO SCH (08:13)
--- NOTE | 2019-02-19 15:57 | General Progress Note ---
Subjective - Review of Systems Service Date: 02/19/19 Subjective: resting comfortably no distress Objective - Results Result Diagrams: 02/16/19 07:00 02/16/19 07:00 Recent Labs: Laboratory Last Values WBC 6.5 Th/cmm (4.8-10.8) 02/16/19 07:00 RBC 4.56 Mil/cmm (3.80-5.10) 02/16/19 07:00 Hgb 13.9 gm/dL (12-16) 02/16/19 07:00 Hct 42.4 % (41.0-60) 02/16/19 07:00 MCV 92.9 fl (81-100) 02/16/19 07:00 MCH 30.4 pg (27.0-31.0) 02/16/19 07:00 MCHC Differential 32.7 pg (28.0-36.0) 02/16/19 07:00 RDW 12.3 % (11.5-20.0) 02/16/19 07:00 Plt Count 315 Th/cmm (150-400) 02/16/19 07:00 MPV 7.3 fl 02/16/19 07:00 Neutrophils % 57.2 % (40.0-80.0) 02/16/19 07:00 Lymphocytes % 30.1 % (20.0-50.0) 02/16/19 07:00 Monocytes % 9.9 % (2.0-10.0) 02/16/19 07:00 Eosinophils % 2.0 % (0.0-5.0) 02/16/19 07:00 Basophils % 0.8 % (0.0-2.0) 02/16/19 07:00 Sodium 130 mEq/L (136-145) L 02/16/19 07:00 Potassium 4.1 mEq/L (3.5-5.1) 02/16/19 07:00 Chloride 97 mEq/L (98-107) L 02/16/19 07:00 Carbon Dioxide 23.5 mEq/L (21.0-31.0) 02/16/19 07:00 Anion Gap 13.6 (7.0-16.0) 02/16/19 07:00 BUN 7 mg/dL (7-25) 02/16/19 07:00 Creatinine 0.6 mg/dL (0.6-1.2) 02/16/19 07:00 Est GFR ( Amer) > 60.0 ml/min (>90) 02/16/19 07:00 Est GFR (Non-Af Amer) > 60.0 ml/min 02/16/19 07:00 BUN/Creatinine Ratio 11.7 02/16/19 07:00 Glucose 176 mg/dL (70-105) H 02/16/19 07:00 Calcium 9.8 mg/dL (8.6-10.3) 02/16/19 07:00 Total Bilirubin 0.3 mg/dL (0.3-1.0) 02/16/19 07:00 AST 19 U/L (13-39) 02/16/19 07:00 ALT 19 U/L (7-52) 02/16/19 07:00 Alkaline Phosphatase 74 U/L (34-104) 02/16/19 07:00 Troponin I < 0.01 ng/mL (0.01-0.05) L 02/16/19 07:00 Total Protein 7.7 gm/dL (6.0-8.3) 02/16/19 07:00 Albumin 4.6 gm/dL (3.7-5.3) 02/16/19 07:00 Globulin 3.1 gm/dL 02/16/19 07:00 Albumin/Globulin Ratio 1.5 (1.0-1.8) 02/16/19 07:00 Triglycerides 114 mg/dL (<150) 02/16/19 07:00 Cholesterol 156 mg/dL (<200) 02/16/19 07:00 LDL Cholesterol Direct 77 mg/dL (75-193) 02/16/19 07:00 HDL Cholesterol 57 mg/dL (23-92) 02/16/19 07:00 TSH 1.25 uIU/ml (0.34-5.60) 02/16/19 07:00 Serum , Qual NEGATIVE (NEGATIVE) 02/16/19 07:00 Urine Source CLEAN C 02/15/19 15:15 Urine Color YELLOW 02/15/19 15:15 Urine Clarity CLEAR (CLEAR) 02/15/19 15:15 Urine pH 6.0 (4.6 - 8.0) 02/15/19 15:15 Ur Specific [place] <= 1.005 (1.005-1.030) 02/15/19 15:15 Urine Protein NEGATIVE mg/dL (NEGATIVE) 02/15/19 15:15 Urine Glucose (UA) NEGATIVE mg/dL (NEGATIVE) 02/15/19 15:15 Urine Ketones NEGATIVE mg/dL (NEGATIVE) 02/15/19 15:15 Urine Blood NEGATIVE (NEGATIVE) 02/15/19 15:15 Urine Nitrate NEGATIVE (NEGATIVE) 02/15/19 15:15 Urine Bilirubin NEGATIVE (NEGATIVE) 02/15/19 15:15 Urine Urobilinogen 0.2 E.U./dL (0.2 - 1.0) 02/15/19 15:15 Ur Leukocyte Esterase NEGATIVE (NEGATIVE) 02/15/19 15:15 Urine RBC 0-2 /hpf (0-5) 02/15/19 15:15 Urine WBC 0-2 /hpf (0-5) 02/15/19 15:15 Ur Epithelial Cells FEW /lpf (FEW) 02/15/19 15:15 Urine Bacteria FEW /hpf (NONE SEEN) 02/15/19 15:15 Urine Test NEGATIVE 02/15/19 14:15 Salicylates < 25.0 mg/L (30.0-100.0) L 02/16/19 07:00 Urine Opiates Screen NEGATIVE (NEGATIVE) 02/15/19 15:15 Urine Methadone Screen NEGATIVE (NEGATIVE) 02/15/19 15:15 Acetaminophen < 10.0 ug/mL (10.0-30.0) L 02/16/19 07:00 Ur Barbiturates Screen NEGATIVE (NEGATIVE) 02/15/19 15:15 Ur Tricyclics Screen NEGATIVE (NEGATIVE) 02/15/19 15:15 Ur Phencyclidine Scrn NEGATIVE (NEGATIVE) 02/15/19 15:15 Amphetamines Screen NEGATIVE (NEGATIVE) 02/15/19 15:15 U Methamphetamines Scrn NEGATIVE (NEGATIVE) 02/15/19 15:15 U Benzodiazepines Scrn NEGATIVE (NEGATIVE) 02/15/19 15:15 U Cocaine Metab Screen NEGATIVE (NEGATIVE) 02/15/19 15:15 U Cannabinoids Screen NEGATIVE (NEGATIVE) 02/15/19 15:15 Ethyl Alcohol < 10 mg/dL (0-10) 02/16/19 07:00 RPR NONREACTIVE (NONREACTIVE) 02/16/19 07:00 - Physical Exam Vitals and I&O: Vital Signs Temp 97.7 F 02/19/19 14:00 Pulse 87 02/19/19 14:00 Resp 20 02/19/19 14:00 BP 124/76 02/19/19 14:00 Pulse Ox 100 02/19/19 14:00 Intake & Output 02/18/19 02/19/19 02/19/19 18:59 06:59 18:59 Intake Total 1200 480 Balance 1200 480 Intake: Oral 1080 480 Other 120 Other: # Voids 3 2 # Bowel Movements 0 Active Medications: Current Medications Acetaminophen (Tylenol) 650 mg PO Q4HR PRN PRN Reason: Mild Pain / Temp above 100 Stop: 04/16/19 18:14 Al Hydrox/Mg Hydrox/Simethicone (Maalox) 30 ml PO Q4HR PRN PRN Reason: GI DISTRESS Stop: 04/16/19 18:14 Atorvastatin Calcium (Lipitor) 10 mg PO HS [facility]; Protocol Stop: 04/16/19 20:59 Last Admin: 02/18/19 21:30 Dose: 10 mg Carbamazepine (Tegretol) 200 mg PO TID [facility]; Protocol Stop: 04/18/19 04:59 Last Admin: 02/19/19 13:04 Dose: 200 mg Docusate Sodium (Colace) 250 mg PO BID [facility] Stop: 04/17/19 08:59 Last Admin: 02/19/19 08:15 Dose: Not Given Fluphenazine HCl (Prolixin) 5 mg PO DAILY [facility]; Protocol Stop: 04/17/19 08:59 Last Admin: 02/19/19 08:13 Dose: 5 mg Glipizide (Glucotrol) 5 mg PO BID [facility] Stop: 04/17/19 08:59 Last Admin: 02/19/19 08:13 Dose: 5 mg Lorazepam (Ativan) 0.5 mg PO Q4HR PRN; Protocol PRN Reason: Agitation Stop: 03/17/19 18:14 Magnesium Hydroxide (Milk Of Magnesia) 30 ml PO HS PRN PRN Reason: Constipation Metformin HCl (Glucophage) 1,000 mg PO BID [facility] Stop: 04/17/19 08:59 Last Admin: 02/19/19 08:12 Dose: 1,000 mg Miscellaneous (Clinical Monitoring) 1 ea MC DAILY PRN PRN Reason: RENAL DOSING (METFORMIN) Stop: 04/17/19 07:34 Multivitamins/Vitamin C (Theragran) 1 tab PO DAILY [facility] Stop: 04/17/19 08:59 Last Admin: 02/19/19 08:13 Dose: 1 tab Olanzapine (Zyprexa) 10 mg PO DAILY [facility]; Protocol Stop: 04/17/19 08:59 Last Admin: 02/19/19 08:12 Dose: 10 mg Olanzapine (Zyprexa) 15 mg PO HS [facility]; Protocol Stop: 04/16/19 20:59 Last Admin: 02/18/19 21:30 Dose: 15 mg Zolpidem Tartrate (Ambien) 5 mg PO HS PRN PRN Reason: Insomnia Stop: 04/16/19 18:14 Last Admin: 02/18/19 21:30 Dose: 5 mg General: No acute distress HEENT: PERRLA Neck: Supple, JVD Cardiovascular: Regular rate, Normal S1, Normal S2 Lungs: Clear to auscultation Abdomen: Bowel sounds, Soft Assessment/Plan - Assessment Assessment: 1.DM. 2.HYPERLIPIDEMIA. 3.CONSTIPATION. 4.PSYCHOSIS - Plan Plan: continue current treatment Nutritional Asmnt/Malnutr-PDOC - Dietary Evaluation Malnutrition Findings (Please click <Entered> for more info): Nutritional Asmnt/Malnutrition Start: 02/19/19 11: 53 Text: Status: Complete Freq: Protocol: Document 02/19/19 11:53 [email or web address] (Rec: 02/19/19 12:13 [email or web address] WATTS- FNS1) Nutritional Asmnt/Malnutrition Patient General Information Nutritional Screening Moderate Risk Diagnosis Psychosis Pertinent Medical Hx/Surgical Hx Diabetes, Hyperlipidemia, psychosis, chronic conistipation Subjective Information [facility]. Patient asleep in bed at time of visit. Tolerating current diet without difficulty. Current Diet Order/ Nutrition Support 60gm CCHO, no added sodium Patient / S.O Not Indicated Pertinent Medications Maalox, Lipitor, Colace, Glipizide, MOM, Metformin, Theragran Pertinent Labs (02/16) Na 130 Nutritional Hx/Data Height 1.73 m Height (Calculated Centimeters) 172.7 Current Weight (lbs) 78.925 kg Weight (Calculated Kilograms) 78.9 Weight (Calculated Grams) 25164.1 [place] Body Weight 140 % [place] Body Weight 124 Body Mass Index (BMI) 26.4 Recent Weight Change No Weight Status Overweight GI Symptoms GI Symptoms None Last BM 02/17 x 1 Difficult in: None Food Allergies No Cultural/Ethnic/Spiritism Belief none indicated Usual diet at home unknown Skin Integrity/Comment: [place] 21, intact, dryness Current %PO Good (75-100%) Estimated Nutritional Goals BEE in Kcals: Using Current wt Calories/Kcals/Kg 79kg CBW 25-30 kcal/kg Kcals Calculated ~6870-1570 kcal/day Protein: Using Current wt Protein g/k.8-1 gm/kg Protein Calculated ~65-80 gm/day Fluid: ml ~5700-0923 ml/day (1 ml/kcal) Nutritional Problem 1. Problem Problem Altered nutrition related lab values related to Etiology electrolyte imbalance aeb Signs/Symptoms: Na 130 Intervention/Recommendation Comments 1. Continue 60 gm CCHO, no added sodium diet as tolerated by patient. If patient remains hyponatremic, consider adding a fluid restriction. Expected Outcomes/Goals Expected Outcomes/Goals Adequate nutrition to meet >75 % estimated needs, improved labs, skin remains intact, weight maintenance or trend toward ideal body weight. F/U LR 02/26
[2019-02-19] MEDS: Atorvastatin Calcium 10 MG TAB PO SCH (21:02)
[2019-02-20] MEDS: Multivitamin Tab PO SCH (09:21)
--- NOTE | 2019-02-20 13:12 | General Progress Note ---
Subjective - Review of Systems Service Date: 02/20/19 Subjective: resting comfortably no distress Objective - Results Result Diagrams: 02/16/19 07:00 02/16/19 07:00 Recent Labs: Laboratory Last Values WBC 6.5 Th/cmm (4.8-10.8) 02/16/19 07:00 RBC 4.56 Mil/cmm (3.80-5.10) 02/16/19 07:00 Hgb 13.9 gm/dL (12-16) 02/16/19 07:00 Hct 42.4 % (41.0-60) 02/16/19 07:00 MCV 92.9 fl (81-100) 02/16/19 07:00 MCH 30.4 pg (27.0-31.0) 02/16/19 07:00 MCHC Differential 32.7 pg (28.0-36.0) 02/16/19 07:00 RDW 12.3 % (11.5-20.0) 02/16/19 07:00 Plt Count 315 Th/cmm (150-400) 02/16/19 07:00 MPV 7.3 fl 02/16/19 07:00 Neutrophils % 57.2 % (40.0-80.0) 02/16/19 07:00 Lymphocytes % 30.1 % (20.0-50.0) 02/16/19 07:00 Monocytes % 9.9 % (2.0-10.0) 02/16/19 07:00 Eosinophils % 2.0 % (0.0-5.0) 02/16/19 07:00 Basophils % 0.8 % (0.0-2.0) 02/16/19 07:00 Sodium 130 mEq/L (136-145) L 02/16/19 07:00 Potassium 4.1 mEq/L (3.5-5.1) 02/16/19 07:00 Chloride 97 mEq/L (98-107) L 02/16/19 07:00 Carbon Dioxide 23.5 mEq/L (21.0-31.0) 02/16/19 07:00 Anion Gap 13.6 (7.0-16.0) 02/16/19 07:00 BUN 7 mg/dL (7-25) 02/16/19 07:00 Creatinine 0.6 mg/dL (0.6-1.2) 02/16/19 07:00 Est GFR ( Amer) > 60.0 ml/min (>90) 02/16/19 07:00 Est GFR (Non-Af Amer) > 60.0 ml/min 02/16/19 07:00 BUN/Creatinine Ratio 11.7 02/16/19 07:00 Glucose 176 mg/dL (70-105) H 02/16/19 07:00 Calcium 9.8 mg/dL (8.6-10.3) 02/16/19 07:00 Total Bilirubin 0.3 mg/dL (0.3-1.0) 02/16/19 07:00 AST 19 U/L (13-39) 02/16/19 07:00 ALT 19 U/L (7-52) 02/16/19 07:00 Alkaline Phosphatase 74 U/L (34-104) 02/16/19 07:00 Troponin I < 0.01 ng/mL (0.01-0.05) L 02/16/19 07:00 Total Protein 7.7 gm/dL (6.0-8.3) 02/16/19 07:00 Albumin 4.6 gm/dL (3.7-5.3) 02/16/19 07:00 Globulin 3.1 gm/dL 02/16/19 07:00 Albumin/Globulin Ratio 1.5 (1.0-1.8) 02/16/19 07:00 Triglycerides 114 mg/dL (<150) 02/16/19 07:00 Cholesterol 156 mg/dL (<200) 02/16/19 07:00 LDL Cholesterol Direct 77 mg/dL (75-193) 02/16/19 07:00 HDL Cholesterol 57 mg/dL (23-92) 02/16/19 07:00 TSH 1.25 uIU/ml (0.34-5.60) 02/16/19 07:00 Serum , Qual NEGATIVE (NEGATIVE) 02/16/19 07:00 Urine Source CLEAN C 02/15/19 15:15 Urine Color YELLOW 02/15/19 15:15 Urine Clarity CLEAR (CLEAR) 02/15/19 15:15 Urine pH 6.0 (4.6 - 8.0) 02/15/19 15:15 Ur Specific [place] <= 1.005 (1.005-1.030) 02/15/19 15:15 Urine Protein NEGATIVE mg/dL (NEGATIVE) 02/15/19 15:15 Urine Glucose (UA) NEGATIVE mg/dL (NEGATIVE) 02/15/19 15:15 Urine Ketones NEGATIVE mg/dL (NEGATIVE) 02/15/19 15:15 Urine Blood NEGATIVE (NEGATIVE) 02/15/19 15:15 Urine Nitrate NEGATIVE (NEGATIVE) 02/15/19 15:15 Urine Bilirubin NEGATIVE (NEGATIVE) 02/15/19 15:15 Urine Urobilinogen 0.2 E.U./dL (0.2 - 1.0) 02/15/19 15:15 Ur Leukocyte Esterase NEGATIVE (NEGATIVE) 02/15/19 15:15 Urine RBC 0-2 /hpf (0-5) 02/15/19 15:15 Urine WBC 0-2 /hpf (0-5) 02/15/19 15:15 Ur Epithelial Cells FEW /lpf (FEW) 02/15/19 15:15 Urine Bacteria FEW /hpf (NONE SEEN) 02/15/19 15:15 Urine Test NEGATIVE 02/15/19 14:15 Salicylates < 25.0 mg/L (30.0-100.0) L 02/16/19 07:00 Urine Opiates Screen NEGATIVE (NEGATIVE) 02/15/19 15:15 Urine Methadone Screen NEGATIVE (NEGATIVE) 02/15/19 15:15 Acetaminophen < 10.0 ug/mL (10.0-30.0) L 02/16/19 07:00 Ur Barbiturates Screen NEGATIVE (NEGATIVE) 02/15/19 15:15 Ur Tricyclics Screen NEGATIVE (NEGATIVE) 02/15/19 15:15 Ur Phencyclidine Scrn NEGATIVE (NEGATIVE) 02/15/19 15:15 Amphetamines Screen NEGATIVE (NEGATIVE) 02/15/19 15:15 U Methamphetamines Scrn NEGATIVE (NEGATIVE) 02/15/19 15:15 U Benzodiazepines Scrn NEGATIVE (NEGATIVE) 02/15/19 15:15 U Cocaine Metab Screen NEGATIVE (NEGATIVE) 02/15/19 15:15 U Cannabinoids Screen NEGATIVE (NEGATIVE) 02/15/19 15:15 Ethyl Alcohol < 10 mg/dL (0-10) 02/16/19 07:00 RPR NONREACTIVE (NONREACTIVE) 02/16/19 07:00 - Physical Exam Vitals and I&O: Vital Signs Temp 97.6 F 02/20/19 06:40 Pulse 76 02/20/19 06:40 Resp 18 02/20/19 06:40 BP 121/89 02/20/19 06:40 Pulse Ox 98 02/20/19 06:40 Intake & Output 02/19/19 02/20/19 02/20/19 18:59 06:59 18:59 Intake Total 1320 240 Balance 1320 240 Intake: Oral 1080 240 Other 240 Other: # Voids 4 2 # Bowel Movements 1 0 Active Medications: Current Medications Acetaminophen (Tylenol) 650 mg PO Q4HR PRN PRN Reason: Mild Pain / Temp above 100 Stop: 04/16/19 18:14 Al Hydrox/Mg Hydrox/Simethicone (Maalox) 30 ml PO Q4HR PRN PRN Reason: GI DISTRESS Stop: 04/16/19 18:14 Atorvastatin Calcium (Lipitor) 10 mg PO HS [facility]ENDRA; Protocol Stop: 04/16/19 20:59 Last Admin: 02/19/19 21:02 Dose: 10 mg Carbamazepine (Tegretol) 200 mg PO TID [facility]; Protocol Stop: 04/18/19 04:59 Last Admin: 02/20/19 09:19 Dose: 200 mg Docusate Sodium (Colace) 250 mg PO BID [facility] Stop: 04/17/19 08:59 Last Admin: 02/20/19 09:19 Dose: 250 mg Fluphenazine HCl (Prolixin) 5 mg PO DAILY [facility]; Protocol Stop: 04/17/19 08:59 Last Admin: 02/20/19 09:20 Dose: 5 mg Glipizide (Glucotrol) 5 mg PO BID [facility] Stop: 04/17/19 08:59 Last Admin: 02/20/19 09:20 Dose: 5 mg Lorazepam (Ativan) 0.5 mg PO Q4HR PRN; Protocol PRN Reason: Agitation Stop: 03/17/19 18:14 Magnesium Hydroxide (Milk Of Magnesia) 30 ml PO HS PRN PRN Reason: Constipation Metformin HCl (Glucophage) 1,000 mg PO BID [facility] Stop: 04/17/19 08:59 Last Admin: 02/20/19 09:21 Dose: 1,000 mg Miscellaneous (Clinical Monitoring) 1 ea MC DAILY PRN PRN Reason: RENAL DOSING (METFORMIN) Stop: 04/17/19 07:34 Multivitamins/Vitamin C (Theragran) 1 tab PO DAILY [facility] Stop: 04/17/19 08:59 Last Admin: 02/20/19 09:21 Dose: 1 tab Olanzapine (Zyprexa) 10 mg PO DAILY [facility]; Protocol Stop: 04/17/19 08:59 Last Admin: 02/20/19 09:18 Dose: 10 mg Olanzapine (Zyprexa) 15 mg PO HS [facility]DRA; Protocol Stop: 04/16/19 20:59 Last Admin: 02/19/19 21:03 Dose: 15 mg Zolpidem Tartrate (Ambien) 5 mg PO HS PRN PRN Reason: Insomnia Stop: 04/16/19 18:14 Last Admin: 02/19/19 21:02 Dose: 5 mg General: No acute distress HEENT: PERRLA Neck: Supple, JVD Cardiovascular: Regular rate, Normal S1, Normal S2 Lungs: Clear to auscultation Abdomen: Bowel sounds, Soft Assessment/Plan - Assessment Assessment: 1.DM. 2.HYPERLIPIDEMIA. 3.CONSTIPATION. 4.PSYCHOSIS - Plan Plan: continue current treatment Nutritional Asmnt/Malnutr-PDOC - Dietary Evaluation Malnutrition Findings (Please click <Entered> for more info): Nutritional Asmnt/Malnutrition Start: 02/19/19 11: 53 Text: Status: Complete Freq: Protocol: Document 02/19/19 11:53 MMULN (Rec: 02/19/19 12:13 [id number] [id number]) Nutritional Asmnt/Malnutrition Patient General Information Nutritional Screening Moderate Risk Diagnosis Psychosis Pertinent Medical Hx/Surgical Hx Diabetes, Hyperlipidemia, psychosis, chronic conistipation Subjective Information [facility]. Patient asleep in bed at time of visit. Tolerating current diet without difficulty. Current Diet Order/ Nutrition Support 60gm CCHO, no added sodium Patient / S.O Not Indicated Pertinent Medications Maalox, Lipitor, Colace, Glipizide, MOM, Metformin, Theragran Pertinent Labs (02/16) Na 130 Nutritional Hx/Data Height 1.73 m Height (Calculated Centimeters) 172.7 Current Weight (lbs) 78.925 kg Weight (Calculated Kilograms) 78.9 Weight (Calculated Grams) 98143.1 [place] Body Weight 140 % [place] Body Weight 124 Body Mass Index (BMI) 26.4 Recent Weight Change No Weight Status Overweight GI Symptoms GI Symptoms None Last BM 02/17 x 1 Difficult in: None Food Allergies No Cultural/Ethnic/Advent Belief none indicated Usual diet at home unknown Skin Integrity/Comment: [place] 21, intact, dryness Current %PO Good (75-100%) Estimated Nutritional Goals BEE in Kcals: Using Current wt Calories/Kcals/Kg 79kg CBW 25-30 kcal/kg Kcals Calculated ~4073-8649 kcal/day Protein: Using Current wt Protein g/k.8-1 gm/kg Protein Calculated ~65-80 gm/day Fluid: ml ~6780-5394 ml/day (1 ml/kcal) Nutritional Problem 1. Problem Problem Altered nutrition related lab values related to Etiology electrolyte imbalance aeb Signs/Symptoms: Na 130 Intervention/Recommendation Comments 1. Continue 60 gm CCHO, no added sodium diet as tolerated by patient. If patient remains hyponatremic, consider adding a fluid restriction. Expected Outcomes/Goals Expected Outcomes/Goals Adequate nutrition to meet >75 % estimated needs, improved labs, skin remains intact, weight maintenance or trend toward ideal body weight. F/U LR 02/26
--- NOTE | 2019-02-20 18:21 | Progress Notes ---
DATE: 02/19/2019 PSYCHIATRIC FOLLOWUP NOTE SUBJECTIVE: The patient was seen and evaluated. The patient's chart reviewed. I am covering for Dr. Saul. IDENTIFYING DATA: She is a 48-year-old female who lives in [facility]. She was brought in here for aggressive, agitated state, screaming, and trying to strike out at staff. Medication reconciliation reviewed. Currently on Prolixin 5 mg p.o. daily, glipizide, metformin, olanzapine 15 mg at bedtime and 10 mg ____ Zyprexa. Today on [id number] evaluation, the patient is calm in her room, does not know exactly where she is. At times difficult to understand her conversation. No EPS. No tardive dyskinesia. ASSESSMENT AND PLAN: History of severe schizophrenia with ____ body changes ____, making nonsensical statements, consistent with her disorganized thought process. We will continue with primary psychiatrist's treatment plan and goals to further assess the agitated behavior. JOB# [id number]
[2019-02-20] MEDS: Atorvastatin Calcium 10 MG TAB PO SCH (21:11)
--- NOTE | 2019-02-21 05:35 | Progress Notes ---
DATE: 02/20/2019 SUBJECTIVE: The patient was seen and evaluated. The patient's chart was reviewed. This is Dr. Salas covering for Dr. Kirkland The patient ____. Denies any side effects to medication. She slept about 6 hours last night. She continues to perseverate about major trauma and spiritual infection, some body changes, and disorganized, needing redirection. MENTAL STATUS EXAMINATION: Still disorganized, making statements that are incoherent ____. ASSESSMENT AND PLAN: Due to the patient's ongoing disorganized thought process, unable to formulate a safe plan. We will continue with the primary psychiatrist treatment plan and goals with medication, which includes Tegretol and olanzapine. [facility]# [id number]
[2019-02-21] MEDS: Multivitamin Tab PO SCH (09:51)
--- NOTE | 2019-02-21 20:37 | Internal Medicine Prog Note ---
Internal Medicine Subjective - Subjective Service Date: 02/21/19 Patient seen and examined:: with staff (SHE IS DOING BETTER) Patient is:: awake, verbal, in bed, talking, confused Per staff patient has:: no adverse event Internal Medicine Objective - Results Result Diagrams: 02/16/19 07:00 02/16/19 07:00 Recent Labs: Laboratory Last Values WBC 6.5 Th/cmm (4.8-10.8) 02/16/19 07:00 RBC 4.56 Mil/cmm (3.80-5.10) 02/16/19 07:00 Hgb 13.9 gm/dL (12-16) 02/16/19 07:00 Hct 42.4 % (41.0-60) 02/16/19 07:00 MCV 92.9 fl (81-100) 02/16/19 07:00 MCH 30.4 pg (27.0-31.0) 02/16/19 07:00 MCHC Differential 32.7 pg (28.0-36.0) 02/16/19 07:00 RDW 12.3 % (11.5-20.0) 02/16/19 07:00 Plt Count 315 Th/cmm (150-400) 02/16/19 07:00 MPV 7.3 fl 02/16/19 07:00 Neutrophils % 57.2 % (40.0-80.0) 02/16/19 07:00 Lymphocytes % 30.1 % (20.0-50.0) 02/16/19 07:00 Monocytes % 9.9 % (2.0-10.0) 02/16/19 07:00 Eosinophils % 2.0 % (0.0-5.0) 02/16/19 07:00 Basophils % 0.8 % (0.0-2.0) 02/16/19 07:00 Sodium 130 mEq/L (136-145) L 02/16/19 07:00 Potassium 4.1 mEq/L (3.5-5.1) 02/16/19 07:00 Chloride 97 mEq/L (98-107) L 02/16/19 07:00 Carbon Dioxide 23.5 mEq/L (21.0-31.0) 02/16/19 07:00 Anion Gap 13.6 (7.0-16.0) 02/16/19 07:00 BUN 7 mg/dL (7-25) 02/16/19 07:00 Creatinine 0.6 mg/dL (0.6-1.2) 02/16/19 07:00 Est GFR ( Amer) > 60.0 ml/min (>90) 02/16/19 07:00 Est GFR (Non-Af Amer) > 60.0 ml/min 02/16/19 07:00 BUN/Creatinine Ratio 11.7 02/16/19 07:00 Glucose 176 mg/dL (70-105) H 02/16/19 07:00 Calcium 9.8 mg/dL (8.6-10.3) 02/16/19 07:00 Total Bilirubin 0.3 mg/dL (0.3-1.0) 02/16/19 07:00 AST 19 U/L (13-39) 02/16/19 07:00 ALT 19 U/L (7-52) 02/16/19 07:00 Alkaline Phosphatase 74 U/L (34-104) 02/16/19 07:00 Troponin I < 0.01 ng/mL (0.01-0.05) L 02/16/19 07:00 Total Protein 7.7 gm/dL (6.0-8.3) 02/16/19 07:00 Albumin 4.6 gm/dL (3.7-5.3) 02/16/19 07:00 Globulin 3.1 gm/dL 02/16/19 07:00 Albumin/Globulin Ratio 1.5 (1.0-1.8) 02/16/19 07:00 Triglycerides 114 mg/dL (<150) 02/16/19 07:00 Cholesterol 156 mg/dL (<200) 02/16/19 07:00 LDL Cholesterol Direct 77 mg/dL (75-193) 02/16/19 07:00 HDL Cholesterol 57 mg/dL (23-92) 02/16/19 07:00 TSH 1.25 uIU/ml (0.34-5.60) 02/16/19 07:00 Serum , Qual NEGATIVE (NEGATIVE) 02/16/19 07:00 Urine Source CLEAN C 02/15/19 15:15 Urine Color YELLOW 02/15/19 15:15 Urine Clarity CLEAR (CLEAR) 02/15/19 15:15 Urine pH 6.0 (4.6 - 8.0) 02/15/19 15:15 Ur Specific [place] <= 1.005 (1.005-1.030) 02/15/19 15:15 Urine Protein NEGATIVE mg/dL (NEGATIVE) 02/15/19 15:15 Urine Glucose (UA) NEGATIVE mg/dL (NEGATIVE) 02/15/19 15:15 Urine Ketones NEGATIVE mg/dL (NEGATIVE) 02/15/19 15:15 Urine Blood NEGATIVE (NEGATIVE) 02/15/19 15:15 Urine Nitrate NEGATIVE (NEGATIVE) 02/15/19 15:15 Urine Bilirubin NEGATIVE (NEGATIVE) 02/15/19 15:15 Urine Urobilinogen 0.2 E.U./dL (0.2 - 1.0) 02/15/19 15:15 Ur Leukocyte Esterase NEGATIVE (NEGATIVE) 02/15/19 15:15 Urine RBC 0-2 /hpf (0-5) 02/15/19 15:15 Urine WBC 0-2 /hpf (0-5) 02/15/19 15:15 Ur Epithelial Cells FEW /lpf (FEW) 02/15/19 15:15 Urine Bacteria FEW /hpf (NONE SEEN) 02/15/19 15:15 Urine Test NEGATIVE 02/15/19 14:15 Salicylates < 25.0 mg/L (30.0-100.0) L 02/16/19 07:00 Urine Opiates Screen NEGATIVE (NEGATIVE) 02/15/19 15:15 Urine Methadone Screen NEGATIVE (NEGATIVE) 02/15/19 15:15 Acetaminophen < 10.0 ug/mL (10.0-30.0) L 02/16/19 07:00 Ur Barbiturates Screen NEGATIVE (NEGATIVE) 02/15/19 15:15 Ur Tricyclics Screen NEGATIVE (NEGATIVE) 02/15/19 15:15 Ur Phencyclidine Scrn NEGATIVE (NEGATIVE) 02/15/19 15:15 Amphetamines Screen NEGATIVE (NEGATIVE) 02/15/19 15:15 U Methamphetamines Scrn NEGATIVE (NEGATIVE) 02/15/19 15:15 U Benzodiazepines Scrn NEGATIVE (NEGATIVE) 02/15/19 15:15 U Cocaine Metab Screen NEGATIVE (NEGATIVE) 02/15/19 15:15 U Cannabinoids Screen NEGATIVE (NEGATIVE) 02/15/19 15:15 Ethyl Alcohol < 10 mg/dL (0-10) 02/16/19 07:00 RPR NONREACTIVE (NONREACTIVE) 02/16/19 07:00 - Physical Exam Vitals and I&O: Vital Signs Temp 0 F 02/21/19 20:01 Pulse 76 02/21/19 14:45 Resp 18 02/21/19 14:45 BP 128/78 02/21/19 14:45 Pulse Ox 96 02/21/19 14:45 Intake & Output 02/21/19 02/21/19 02/22/19 06:59 18:59 06:59 Intake Total 240 Balance 240 Weight (lbs) 78.925 kg Intake: Oral 240 Other: # Voids 3 # Bowel Movements 1 0 Stool Characteristics Formed Formed Formed Weight Source Bedscale Active Medications: Current Medications Acetaminophen (Tylenol) 650 mg PO Q4HR PRN PRN Reason: Mild Pain / Temp above 100 Stop: 04/16/19 18:14 Al Hydrox/Mg Hydrox/Simethicone (Maalox) 30 ml PO Q4HR PRN PRN Reason: GI DISTRESS Stop: 04/16/19 18:14 Atorvastatin Calcium (Lipitor) 10 mg PO HS [facility]; Protocol Stop: 04/16/19 20:59 Last Admin: 02/20/19 21:11 Dose: 10 mg Carbamazepine (Tegretol) 200 mg PO TID [facility]; Protocol Stop: 04/18/19 04:59 Last Admin: 02/21/19 13:52 Dose: 200 mg Docusate Sodium (Colace) 250 mg PO BID [facility] Stop: 04/17/19 08:59 Last Admin: 02/21/19 17:38 Dose: 250 mg Fluphenazine HCl (Prolixin) 5 mg PO DAILY [facility]; Protocol Stop: 04/17/19 08:59 Last Admin: 02/21/19 09:51 Dose: 5 mg Glipizide (Glucotrol) 5 mg PO BID [facility] Stop: 04/17/19 08:59 Last Admin: 02/21/19 17:38 Dose: 5 mg Lorazepam (Ativan) 0.5 mg PO Q4HR PRN; Protocol PRN Reason: Agitation Stop: 03/17/19 18:14 Last Admin: 02/21/19 01:11 Dose: 0.5 mg Magnesium Hydroxide (Milk Of Magnesia) 30 ml PO HS PRN PRN Reason: Constipation Metformin HCl (Glucophage) 1,000 mg PO BID [facility] Stop: 04/17/19 08:59 Last Admin: 02/21/19 17:38 Dose: 1,000 mg Miscellaneous (Clinical Monitoring) 1 ea [facility] DAILY PRN PRN Reason: RENAL DOSING (METFORMIN) Stop: 04/17/19 07:34 Multivitamins/Vitamin C (Theragran) 1 tab PO DAILY [facility] Stop: 04/17/19 08:59 Last Admin: 02/21/19 09:51 Dose: 1 tab Olanzapine (Zyprexa) 10 mg PO DAILY [facility]; Protocol Stop: 04/17/19 08:59 Last Admin: 02/21/19 09:51 Dose: 10 mg Olanzapine (Zyprexa) 15 mg PO HS [facility]; Protocol Stop: 04/16/19 20:59 Last Admin: 02/20/19 21:53 Dose: 15 mg Zolpidem Tartrate (Ambien) 5 mg PO HS PRN PRN Reason: Insomnia Stop: 04/16/19 18:14 Last Admin: 02/20/19 21:12 Dose: 5 mg General: demented HEENT: NC/AT, PERRLA, EOMI, anicteric sclerae, throat clear Neck: Supple, No JVD, No thyromegaly, +2 carotid pulse wo bruit, No LAD Abdomen: soft, non-tender, non-distended Extremities: clear Neurological: no change Internal Medicine Assmt/Plan - Assessment Assessment: 1.DM. 2.HYPERLIPIDEMIA. 3.CONSTIPATION. 4.PSYCHOSIS - Plan Plan: CONTINUE ON CURRENT MEDICATION AND DIET Nutritional Asmnt/Malnutr-PDOC - Dietary Evaluation Malnutrition Findings (Please click <Entered> for more info): Nutritional Asmnt/Malnutrition Start: 02/19/19 11: 53 Text: Status: Complete Freq: Protocol: Document 02/19/19 11:53 THOMPSON (Rec: 02/19/19 12:13 THOMPSON WATTS- [email or web address]) Nutritional Asmnt/Malnutrition Patient General Information Nutritional Screening Moderate Risk Diagnosis Psychosis Pertinent Medical Hx/Surgical Hx Diabetes, Hyperlipidemia, psychosis, chronic conistipation Subjective Information [facility]. Patient asleep in bed at time of visit. Tolerating current diet without difficulty. Current Diet Order/ Nutrition Support 60gm CCHO, no added sodium Patient / S.O Not Indicated Pertinent Medications Maalox, Lipitor, Colace, Glipizide, MOM, Metformin, Theragran Pertinent Labs (02/16) Na 130 Nutritional Hx/Data Height 1.73 m Height (Calculated Centimeters) 172.7 Current Weight (lbs) 78.925 kg Weight (Calculated Kilograms) 78.9 Weight (Calculated Grams) 93163.1 Burson Body Weight 140 % Burson Body Weight 124 Body Mass Index (BMI) 26.4 Recent Weight Change No Weight Status Overweight GI Symptoms GI Symptoms None Last BM 02/17 x 1 Difficult in: None Food Allergies No Cultural/Ethnic/Sabianist Belief none indicated Usual diet at home unknown Skin Integrity/Comment: [place] 21, intact, dryness Current %PO Good (75-100%) Estimated Nutritional Goals BEE in Kcals: Using Current wt Calories/Kcals/Kg 79kg CBW 25-30 kcal/kg Kcals Calculated ~7185-9999 kcal/day Protein: Using Current wt Protein g/k.8-1 gm/kg Protein Calculated ~65-80 gm/day Fluid: ml ~5989-9194 ml/day (1 ml/kcal) Nutritional Problem 1. Problem Problem Altered nutrition related lab values related to Etiology electrolyte imbalance aeb Signs/Symptoms: Na 130 Intervention/Recommendation Comments 1. Continue 60 gm CCHO, no added sodium diet as tolerated by patient. If patient remains hyponatremic, consider adding a fluid restriction. Expected Outcomes/Goals Expected Outcomes/Goals Adequate nutrition to meet >75 % estimated needs, improved labs, skin remains intact, weight maintenance or trend toward ideal body weight. F/U LR 02/26
[2019-02-21] MEDS: Atorvastatin Calcium 10 MG TAB PO SCH (20:49)
--- NOTE | 2019-02-21 23:03 | Progress Notes ---
DATE: 02/21/2019 SUBJECTIVE: A 48-year-old female living in [facility] and transferred to [facility] due to increased yelling and screaming episodes. The patient is very aggressive, agitated, attempting to strike out at staff. The patient was making some bizarre statements. When I saw her last week, seems to be somewhat calmer, but impulsive, unpredictable, still talking about psychotrauma and spiritual incantations. Stating that she wants to go to a board and care, but at the same time stating that she has a home in [place]. Dr. Salas saw the patient yesterday. The patient was still talking about spiritual incantations, body changes, nonsensical statement, ongoing psychotic symptoms. PLAN: We will continue to monitor closely. Continue to titrate medications. JOB# [id number]
[2019-02-22] MEDS: Multivitamin Tab PO SCH (08:39)
--- NOTE | 2019-02-23 11:22 | Progress Notes ---
DATE: 02/22/2019 The patient noted to be calm today. No events, no agitation. Seems to be getting along fairly well with the staff, peers. Wants to leave. Isolative and withdrawn. No agitation, no escalation of behaviors. No SI, no HI. No overt psychotic symptoms noted, seems to be generally approaching her baseline. Doing well on increased doses of Zyprexa. Calm on exam. Denying any SI. No overt ____ disturbances. We will attempt to discharge the patient today. JOB# [id number]
== END 2019-02-22 17:00 | DRG 885 ==
LOC: ER 14:01 → GERO2 16:14
PROVIDERS: ADMIT Psychiatry & Neurology Psychiatry; ATTEND Psychiatry & Neurology Psychiatry
DX: F20.0 Paranoid schizophrenia (principal); I10 Essential (primary) hypertension; F31.9 Bipolar disorder, unspecified; E11.9 Type 2 diabetes mellitus without complications; E78.5 Hyperlipidemia, unspecified; K59.09 Other constipation; F29 Unspecified psychosis not due to a substance or known physiological condition; J44.9 Chronic obstructive pulmonary disease, unspecified; Z88.8 Allergy status to other drugs, medicaments and biological substances
CPT/HCPCS: 36415-UA; 80053-TC; 80061-TC; 80307; 80320-TC; 80329-TC; 81001-TC; 81025-TC; 83036-90; 84443-TC; 84484-TC; 84703-TC; 85025-TC; 86592-TC; 90899; 93005; Z7610

== ENCOUNTER 2019-10-11 16:38 | Inpatient (IN) | payer MEDICARE, MEDICAID ==
[2019-10-11 23:11] VITALS: BP 155/76
[2019-10-12] MEDS ORDERED: Magnesium Hydroxide (MOM) 30 mL UDC PO PRN (00:04)
[2019-10-12] MEDS ORDERED: Maalox 30 mL Cup PO PRN (00:04)
[2019-10-12] MEDS: Multivitamin Tab PO SCH (08:18)
--- NOTE | 2019-10-12 13:52 | History & Physical ---
ADMIT DATE: 10/11/2019 IDENTIFYING INFORMATION: The patient is a 49-year-old female. CHIEF COMPLAINT: "I need to leave. HISTORY OF PRESENT ILLNESS: She came from [facility] because she has been acting out. She was cleared by [facility], because she has been psychotic. She has been agitated, delusions that everyone is against her and will harm her, plan is to kill her, giving her a lot offear. The patient was sent here. The patient was scratching her face causing to be red. The patient has been noncompliant with her medications. She is conserved. Her conservator, Samson Shanepatricia. When I talked to the patient, she was minimizing events due to her admission. She reported that I have chemical imbalance. She admits that she tried to cut herself. She reported that she was used to be homeless and that is why she was conserved. She denies any current auditory or visual hallucination, but she was not a very good historian. She knew she is 48 and actually she is 49. Unable to state a safe plan for self-care. PAST PSYCHIATRIC HISTORY: Denies substance abuse. She has many hospitalizations for many reasons. She said she has schizoaffective disorder. She was homeless. She has been hospitalized maybe 10 times with a history of prior attempt to harm herself by cutting. The patient reports slept well and eats well. She hears voices sometimes. MEDICAL HISTORY: Deferred to the medical doctor. ALLERGIES: THE PATIENT IS ALLERGIC TO HALDOL AND MELOXICAM. MEDICATIONS: The patient has been on Tegretol, atorvastatin, Fluphenazine, glipizide and olanzapine 12.5 mg twice a day. FAMILY AND SOCIAL HISTORY: The patient reports that she is single, never , no children. She reports she has a master degree. 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 Denies substance abuse. She denies family psychiatric disorder. The patient has been at [facility], been seeing her for the past year for her psychiatric condition. MENTAL STATUS EXAMINATION: The patient is appropriately dressed, not very groomed. Mood is depressed. Affect is constricted. She believes this is 09/24/2019. She reported that she sleeps well, eats well. Apparently, she has been paranoid and delusional. She has been agitated. She believes everybody is against her. She is being paranoid, believed people are trying to kill her. She reports she sleeps well, eats well. She reports she hear voices vaguely. She denies that she is lying to anyone. She seems to have average intelligence. [facility] is poor, cannot remember her exact age. Recent memory is poor, cannot remember the events that led to admission. She is psychotic. Her insight and judgment is impaired. IMPRESSION: Schizoaffective disorder, bipolar type. MEDICAL DIAGNOSES: Deferred to the medical doctor. Her assets, she is accepting treatment. Negative poor coping skills. INITIAL TREATMENT PLAN: The patient will be continued on medication. We will do group therapy, milieu therapy, and individual therapy. ESTIMATED LENGTH OF STAY: 3-7 days. DISCHARGE CRITERIA: Decreasing psychosis, paranoia after discharge, outpatient treatment. JOB# [id number] OLAYINKA
[2019-10-12] MEDS: Atorvastatin Calcium 10 MG TAB PO SCH (20:41)
--- NOTE | 2019-10-12 22:10 | History & Physical ---
ADMIT DATE: 10/11/2019 HISTORY OF PRESENT ILLNESS: The patient is a 49-year-old female with long history of diabetes mellitus, seizure disorder, hyperlipidemia, schizoaffective disorder, admitted to [facility] under Dr. Sepulveda's service. The patient feels well, no chest pain, no shortness of breath, no nausea, no vomiting. PAST MEDICAL HISTORY: Significant for diabetes mellitus, seizure disorder, hyperlipidemia, schizoaffective disorder. PAST SURGICAL HISTORY: No recent surgery. ALLERGIES: She is allergic to CLONAZEPAM, HALOPERIDOL and MELOXICAM. SOCIAL HISTORY: No smoking, no alcohol, no drug. FAMILY HISTORY: Noncontributory. MEDICATIONS: Follow admission reconciliation. REVIEW OF SYSTEMS: RENAL SYSTEM: No history of chronic renal disorder. CARDIOVASCULAR SYSTEM: No coronary artery disease. ENDOCRINE SYSTEM: She has history of diabetes mellitus. GASTROINTESTINAL SYSTEM: No upper or lower GI bleeding. NEUROLOGICAL: She has history of seizure disorder. SKELETOMUSCULAR SYSTEM: No muscular dystrophy. HEMATOLOGICAL SYSTEM: No bleeding tendencies. RESPIRATORY SYSTEM: No asthma. GENITOURINARY: No dysuria or hematuria. PHYSICAL EXAMINATION: GENERAL: She is awake, alert, confused. VITAL SIGNS: Temperature 97.6, heart rate 85, blood pressure 101/56. HEENT: Normocephalic. Pupils reacting equal to light and accommodation. Sclerae clear. NECK: Supple. Negative for lymphadenopathy, JVD or bruit. CHEST: Bilaterally normal. No rhonchi or wheezing. HEART: S1, S2 normal. No murmur or gallop rhythm. ABDOMEN: Soft, bowel sounds positive. EXTREMITIES: No edema. NEUROLOGIC: She is awake, alert, confused. Cranial nerve 1: The patient was not able to differentiate the odor. Cranial nerve 2: The patient is able to read printed page. Cranial nerve 3: The patient is able to move eyeball upward and outward. Cranial nerve 4: The patient is able to move eyeball inward and downward. Cranial nerve 5: The patient to clench teeth, has normal sensation to forehead. Cranial nerve 6: The patient is able to move eyeball lateral on both sides. Cranial nerve 7: The patient is able to move eyebrow upwards on both sides. Cranial nerve 8: The patient will hear finger rubs on both sides. Cranial nerve 9: The patient has normal gag reflex. Cranial nerve 10: The patient able to move soft palate upward on both sides. Cranial nerve 11: The patient able to shrink shoulder on both sides. Cranial nerve 12: The patient able to stick tongue straight. Motor or sensory deficit ____. Her gait is stable. Romberg test is normal. Muscle tone is normal. Deep tendon reflexes within normal. [id number] is normal. Sensory system is normal. SKIN: Intact. ASSESSMENT: 1. Diabetes mellitus. 2. Hyperlipidemia. 3. Seizure disorder. 4. Schizoaffective disorder. PLAN: The patient in the hospital under Dr. Sepulveda's service. Medical problems addressed during hospitalization are schizoaffective disorder. Problem addressed at discharge are diabetes mellitus, seizure disorder, hyperlipidemia. The patient is medically stable for activity. Thank you, Dr. Sepulveda, for asking me to see your patient. The patient is a FULL CODE. JOB# [id number]
[2019-10-13] MEDS: Multivitamin Tab PO SCH (08:13)
--- NOTE | 2019-10-13 12:31 | Progress Notes ---
DATE: 10/13/2019 Case was discussed with staff of the patient, reviewed records. The patient continues to be paranoid and delusional, continues to be easily agitated, paranoid somebody is trying to kill her. Continues to have poor insight. Continues to be unable to make safe plan for self-care. The patient is conserved. The patient also is allergic to CLONAZEPAM, beside HALDOL and MELOXICAM and no side effects with the medication, no sedation, no nausea, no extrapyramidal symptoms, was restarted on the olanzapine 12.5 mg twice a day with no side effects. She is also on fluphenazine 2.5 mg daily and we will continue outpatient group therapy and Tegretol 200 mg 3 times a day, glipizide, atorvastatin. We will continue outpatient group therapy, milieu therapy, and adjust medications as needed. JOB# [id number] MTDD
--- NOTE | 2019-10-13 17:15 | Internal Medicine Prog Note ---
Internal Medicine Subjective - Subjective Service Date: 10/13/19 Patient seen and examined:: with staff (SHE IS DOING WELL) Patient is:: awake, verbal, ambulating, talking, confused Per staff patient has:: no adverse event, eating well, confused, tolerating meds Internal Medicine Objective - Physical Exam Vitals and I&O: Vital Signs Temp 98 F 10/13/19 14:46 Pulse 83 10/13/19 14:46 Resp 20 10/13/19 14:46 BP 120/63 10/13/19 14:46 Pulse Ox 99 10/13/19 14:46 Intake & Output 10/12/19 10/13/19 10/13/19 18:59 06:59 18:59 Intake Total 240 Balance 240 Intake: Oral 240 Other: # Voids 2 # Bowel Movements 0 Stool Characteristics Formed Formed Formed Brown Brown Brown Active Medications: Current Medications Acetaminophen (Tylenol) 650 mg PO Q4H PRN PRN Reason: Pain (Mild 1-3) Stop: 12/10/19 21:58 Acetaminophen (Tylenol) 650 mg PO Q4HR PRN PRN Reason: Temp above 100 Stop: 12/11/19 00:03 Al Hydrox/Mg Hydrox/Simethicone (Maalox) 30 ml PO Q4HR PRN PRN Reason: GI DISTRESS Stop: 12/11/19 00:03 Atorvastatin Calcium (Lipitor) 10 mg PO HS [facility]; Protocol Stop: 12/11/19 20:59 Last Admin: 10/12/19 20:41 Dose: 10 mg Carbamazepine (Tegretol) 200 mg PO TID [facility]; Protocol Stop: 12/11/19 08:59 Last Admin: 10/13/19 14:35 Dose: 200 mg Docusate Sodium (Colace) 100 mg PO BID [facility] Stop: 12/11/19 08:59 Last Admin: 10/13/19 16:12 Dose: 100 mg Fluphenazine HCl (Prolixin) 2.5 mg PO DAILY [facility]; Protocol Stop: 12/11/19 08:59 Last Admin: 10/13/19 08:13 Dose: 2.5 mg Glipizide (Glucotrol) 5 mg PO BID [facility] Stop: 12/11/19 08:59 Last Admin: 10/13/19 16:12 Dose: 5 mg Lorazepam (Ativan) 0.5 mg PO Q4HR PRN; Protocol PRN Reason: Anxiety Stop: 11/10/19 21:58 Magnesium Hydroxide (Milk Of Magnesia) 30 ml PO HS PRN PRN Reason: Constipation Stop: 12/11/19 00:03 Metformin HCl (Glucophage) 1,000 mg PO BID [facility] Stop: 12/11/19 08:59 Last Admin: 10/13/19 16:12 Dose: 1,000 mg Multivitamins/Vitamin C (Theragran) 1 tab PO DAILY [facility] Stop: 12/11/19 08:59 Last Admin: 10/13/19 08:13 Dose: 1 tab Olanzapine 10 mg/ Olanzapine 2 (.5 mg) 12.5 mg PO BID [facility] Stop: 12/11/19 16:59 Last Admin: 10/13/19 16:13 Dose: 12.5 mg Zolpidem Tartrate (Ambien) 5 mg PO HS PRN PRN Reason: Insomnia Stop: 12/10/19 21:58 General: alert, demented HEENT: NC/AT, PERRLA, EOMI, anicteric sclerae, throat clear Neck: Supple, No JVD, No thyromegaly, +2 carotid pulse wo bruit, No LAD Lungs: CTAB Cardiovascular: Normal S1, Normal S2, without murmur Abdomen: soft, non-tender, non-distended Extremities: clear Neurological: no change, gait stable Internal Medicine Assmt/Plan - Assessment Assessment: 1.DM. 2.HYPERLIPIDEMIA. 3.SEIZURE DISORDER 4.SCHIZO AFFECTIVE DISORDERS - Plan Plan: CONTINUE ON CURRENT MEDICATION AND DIET
[2019-10-13] MEDS: Atorvastatin Calcium 10 MG TAB PO SCH (21:29)
[2019-10-14] MEDS: Multivitamin Tab PO SCH (08:13)
--- NOTE | 2019-10-14 15:03 | Internal Medicine Prog Note ---
Internal Medicine Subjective - Subjective Service Date: 10/14/19 Patient seen and examined:: without staff (SHE IS DOING WELL) Patient is:: awake, verbal, ambulating, talking, confused Per staff patient has:: no adverse event, eating well, confused, tolerating meds Internal Medicine Objective - Physical Exam Vitals and I&O: Vital Signs Temp 97.4 F 10/14/19 05:53 Pulse 90 10/14/19 05:53 Resp 17 10/14/19 08:00 BP 108/58 10/14/19 05:53 Pulse Ox 95 10/14/19 05:53 Intake & Output 10/13/19 10/14/19 10/14/19 18:59 06:59 18:59 Intake Total 240 Balance 240 Intake: Oral 240 Other: # Voids 2 # Bowel Movements 0 Stool Characteristics Formed Formed Brown Brown Active Medications: Current Medications Acetaminophen (Tylenol) 650 mg PO Q4H PRN PRN Reason: Pain (Mild 1-3) Stop: 12/10/19 21:58 Acetaminophen (Tylenol) 650 mg PO Q4HR PRN PRN Reason: Temp above 100 Stop: 12/11/19 00:03 Al Hydrox/Mg Hydrox/Simethicone (Maalox) 30 ml PO Q4HR PRN PRN Reason: GI DISTRESS Stop: 12/11/19 00:03 Atorvastatin Calcium (Lipitor) 10 mg PO HS [facility]; Protocol Stop: 12/11/19 20:59 Last Admin: 10/13/19 21:29 Dose: 10 mg Carbamazepine (Tegretol) 200 mg PO TID [facility]; Protocol Stop: 12/11/19 08:59 Last Admin: 10/14/19 13:22 Dose: 200 mg Docusate Sodium (Colace) 100 mg PO BID [facility] Stop: 12/11/19 08:59 Last Admin: 10/14/19 08:12 Dose: 100 mg Fluphenazine HCl (Prolixin) 2.5 mg PO DAILY [facility]; Protocol Stop: 12/11/19 08:59 Last Admin: 10/14/19 08:12 Dose: 2.5 mg Glipizide (Glucotrol) 5 mg PO BID [facility] Stop: 12/11/19 08:59 Last Admin: 10/14/19 08:13 Dose: 5 mg Lorazepam (Ativan) 0.5 mg PO Q4HR PRN; Protocol PRN Reason: Anxiety Stop: 11/10/19 21:58 Magnesium Hydroxide (Milk Of Magnesia) 30 ml PO HS PRN PRN Reason: Constipation Stop: 12/11/19 00:03 Metformin HCl (Glucophage) 1,000 mg PO BID [facility] Stop: 12/11/19 08:59 Last Admin: 10/14/19 08:12 Dose: 1,000 mg Multivitamins/Vitamin C (Theragran) 1 tab PO DAILY [facility] Stop: 12/11/19 08:59 Last Admin: 10/14/19 08:13 Dose: 1 tab Olanzapine 10 mg/ Olanzapine 2 (.5 mg) 12.5 mg PO BID [facility] Stop: 12/11/19 16:59 Last Admin: 10/14/19 08:12 Dose: 12.5 mg Zolpidem Tartrate (Ambien) 5 mg PO HS PRN PRN Reason: Insomnia Stop: 12/10/19 21:58 General: alert, demented HEENT: NC/AT, PERRLA, EOMI, anicteric sclerae, throat clear Neck: Supple, No JVD, No thyromegaly, +2 carotid pulse wo bruit, No LAD Lungs: CTAB Cardiovascular: Normal S1, Normal S2, without murmur Abdomen: soft, non-tender, non-distended Extremities: clear Neurological: no change, gait stable Internal Medicine Assmt/Plan - Assessment Assessment: 1.DM. 2.HYPERLIPIDEMIA. 3.SEIZURE DISORDER 4.SCHIZO AFFECTIVE DISORDERS - Plan Plan: CONTINUE ON CURRENT MEDICATION AND DIET Nutritional Asmnt/Malnutr-PDOC - Dietary Evaluation Malnutrition Findings (Please click <Entered> for more info): Nutritional Asmnt/Malnutrition Start: 10/14/19 13: 27 Text: Status: Complete Freq: Protocol: Document 10/14/19 13:28 EDVIN (Rec: 10/14/19 13:35 EDVIN [id number]) Nutritional Asmnt/Malnutrition Patient General Information Nutritional Screening Moderate Risk Diagnosis Psychosis Pertinent Medical Hx/Surgical Hx Diabetes mellitus, seizure disorder, hyperlipidemia, schizoaffective disorder Subjective Information Pt is a 49-year-old female admitted on 10/10 d/t acting out, agitated, and delusional. Pt is eating an estimated 100 % of meals Per Meal/Nutrition Activity Record. Dietary is currently providing an estimated 2017 kcals and 120 gm Pro (x2 days), per Pt PO intake this is providing an estimated 2017 kcals and 120gm Pro to meet 100% kcal and 100 % Pro needs- adequate. Visited pt. after lunch, introduced myself, inquired how she was eating. Pt. stated she was eating just fine. Spoke to pt. about their high TG levels, pt. understood and stated they are watching their fat intake and reducing meat consumption. Recommendation to add a cardiac diet due hx of hyperlipidemia and labs TG 256 (10/10). Pt. nurse Catalina has placed the order to change diet per recommendation. Anthropometrics HT: 58 WT: 186 LB (84.55 kg) ABW: 151 LB (68.64) BMI: 28.28 (Overweight) GI/ Skin Integrity GI: WNL, Soft, Non-Tender BM: 10/11 x1 I/O: 240/Not Noted Skin: WNL, Intact Juan Carlos: 21 Diet Order: [facility] Estimated Energy Needs: ( Geriatric, ABW) 6089-4777 kcals (25-30 kcals/ kg) 69-82g Pro (1.0-1.2 g/kg) 1700- 2000 ml (25-30 ml/kg) Current Diet Order/ Nutrition Support [facility] Pertinent Medications Maalox (PRN), Lipitor, Tegretol, Colace, Glucotrol, MOM, Glucophage, Theragran Pertinent Labs 10/10: Glucose 122, TG 256, HDL 52, Na 124, Ca 8.1, Cl 91 Nutritional Hx/Data Height 1.73 m Height (Calculated Centimeters) 172.7 Current Weight (lbs) 84.368 kg Weight (Calculated Kilograms) 84.4 Weight (Calculated Grams) 89232.2 [place] Body Weight 140 % [place] Body Weight 107 Body Mass Index (BMI) 28.3 Weight Status Overweight GI Symptoms GI Symptoms None Last BM 10/11 Skin Integrity/Comment: Skin: WNL, Intact Juan Carlos: 21 Current %PO Good (75-100%) Estimated Nutritional Goals BEE in Kcals: Adj wt of IBW Calories/Kcals/Kg 25-30 Kcals Calculated 7286-7417 Protein: Adj wt of IBW Protein g/k.0-1.2 Protein Calculated 69-82 Fluid: ml 1700- 2000 ml (25-30 ml/kg) Nutritional Problem 1. Problem Problem Altered nutrition related labs Etiology labs r/t endocrine dysfunction and history of hyperlipidemia Signs/Symptoms: aeb recent laboratory values, Glucose 122, TG 256 Malnutrition Related to Morbid Obesity Malnutrition related to morbid obesity No Intervention/Recommendation Comments 1. Recommendation to add a cardiac diet to current diet rx. 2. Continue antihyperglycemic medications for glucose control per MD order. Expected Outcomes/Goals Expected Outcomes/Goals 1. PO intake to continue to meet >75% of estimated nutritional needs. 2.Monitor PO intake, wt, nutrition related labs, and skin integrity to trend WNL. 3. F/U as low risk in 7-10 days, 10/20-10/23
--- NOTE | 2019-10-14 20:51 | Progress Notes ---
DATE: Case was discussed with staff of the patient, reviewed records. The patient continues to have poor insight in general, confused, unable to make safe plan for self-care, easily agitated, she is conserved. No side effects with the medication, no sedation, no nausea, no extrapyramidal symptoms. She tend to pace in the unit, does not talk much to anybody. No side effects with the medication, no sedation, no nausea, no extrapyramidal symptoms. We will continue outpatient group therapy, milieu therapy, adjust medication as needed. JOB# [id number]
[2019-10-14] MEDS: Atorvastatin Calcium 10 MG TAB PO SCH (20:57)
--- NOTE | 2019-10-15 07:22 | Progress Notes ---
DATE: 10/15/2019 A 49-year-old female coming from [place], acting out, psychotic, agitated, delusional, believing people are against her. Apparently, scratching self and also conserved. The patient confused, stating she is here to "transfer to a homestead." Seems to be able to have a conversation with me, but not really making much sense. Medications were noted, seems to be responding to internal stimuli, asking staff over and over that she is ready to check out, go to a "board and care." We will continue to monitor. Time was spent speaking with the patient, review of nursing notes. Medications were noted. Labs were reviewed. We will continue to monitor on inpatient basis. JOB# [id number]
[2019-10-15] MEDS: Multivitamin Tab PO SCH (09:02)
--- NOTE | 2019-10-15 20:13 | General Progress Note ---
Subjective - Review of Systems Service Date: 10/15/19 Subjective: resting comfortably no distress Objective - Physical Exam Vitals and I&O: Vital Signs Temp 97.9 F 10/15/19 20:01 Pulse 95 10/15/19 20:01 Resp 19 10/15/19 20:01 BP 121/75 10/15/19 20:01 Pulse Ox 98 10/15/19 20:01 Intake & Output 10/15/19 10/15/19 10/16/19 06:59 18:59 06:59 Intake Total 360 1200 120 Output Total 1 Balance 359 1200 120 Intake: Oral 360 1200 120 Output: Stool 1 Other: # Voids 2 2 # Bowel Movements 1 0 Active Medications: Current Medications Acetaminophen (Tylenol) 650 mg PO Q4H PRN PRN Reason: Pain (Mild 1-3) Stop: 12/10/19 21:58 Acetaminophen (Tylenol) 650 mg PO Q4HR PRN PRN Reason: Temp above 100 Stop: 12/11/19 00:03 Al Hydrox/Mg Hydrox/Simethicone (Maalox) 30 ml PO Q4HR PRN PRN Reason: GI DISTRESS Stop: 12/11/19 00:03 Atorvastatin Calcium (Lipitor) 10 mg PO HS [facility]; Protocol Stop: 12/11/19 20:59 Last Admin: 10/14/19 20:57 Dose: 10 mg Carbamazepine (Tegretol) 200 mg PO TID [facility]; Protocol Stop: 12/11/19 08:59 Last Admin: 10/15/19 14:22 Dose: 200 mg Docusate Sodium (Colace) 100 mg PO BID [facility] Stop: 12/11/19 08:59 Last Admin: 10/15/19 16:24 Dose: 100 mg Fluphenazine HCl (Prolixin) 2.5 mg PO DAILY [facility]; Protocol Stop: 12/11/19 08:59 Last Admin: 10/15/19 09:05 Dose: 2.5 mg Glipizide (Glucotrol) 5 mg PO BID [facility] Stop: 12/11/19 08:59 Last Admin: 10/15/19 16:24 Dose: 5 mg Lorazepam (Ativan) 0.5 mg PO Q4HR PRN; Protocol PRN Reason: Anxiety Stop: 11/10/19 21:58 Last Admin: 10/15/19 13:00 Dose: 0.5 mg Magnesium Hydroxide (Milk Of Magnesia) 30 ml PO HS PRN PRN Reason: Constipation Stop: 12/11/19 00:03 Metformin HCl (Glucophage) 1,000 mg PO BID [facility] Stop: 12/11/19 08:59 Last Admin: 10/15/19 16:25 Dose: 1,000 mg Multivitamins/Vitamin C (Theragran) 1 tab PO DAILY [facility] Stop: 12/11/19 08:59 Last Admin: 10/15/19 09:02 Dose: 1 tab Olanzapine 10 mg/ Olanzapine 2 (.5 mg) 12.5 mg PO BID [facility] Stop: 12/11/19 16:59 Last Admin: 10/15/19 16:23 Dose: 12.5 mg Zolpidem Tartrate (Ambien) 5 mg PO HS PRN PRN Reason: Insomnia Stop: 12/10/19 21:58 General: Alert, Oriented x3 HEENT: Atraumatic, PERRLA, EOMI Neck: Supple, JVD, Thyromegaly Cardiovascular: Regular rate, Normal S1, Normal S2 Lungs: Clear to auscultation Abdomen: Bowel sounds, Soft Assessment/Plan - Assessment Assessment: 1.DM. 2.HYPERLIPIDEMIA. 3.SEIZURE DISORDER 4.SCHIZO AFFECTIVE DISORDERS - Plan Plan: continue current treatment Nutritional Asmnt/Malnutr-PDOC - Dietary Evaluation Malnutrition Findings (Please click <Entered> for more info): Nutritional Asmnt/Malnutrition Start: 10/14/19 13: 27 Text: Status: Complete Freq: Protocol: Document 10/14/19 13:28 EDVIN (Rec: 10/14/19 13:35 EDVIN [email or web address]) Nutritional Asmnt/Malnutrition Patient General Information Nutritional Screening Moderate Risk Diagnosis Psychosis Pertinent Medical Hx/Surgical Hx Diabetes mellitus, seizure disorder, hyperlipidemia, schizoaffective disorder Subjective Information Pt is a 49-year-old female admitted on 10/10 d/t acting out, agitated, and delusional. Pt is eating an estimated 100 % of meals Per Meal/Nutrition Activity Record. Dietary is currently providing an estimated 2017 kcals and 120 gm Pro (x2 days), per Pt PO intake this is providing an estimated 2017 kcals and 120gm Pro to meet 100% kcal and 100 % Pro needs- adequate. Visited pt. after lunch, introduced myself, inquired how she was eating. Pt. stated she was eating just fine. Spoke to pt. about their high TG levels, pt. understood and stated they are watching their fat intake and reducing meat consumption. Recommendation to add a cardiac diet due hx of hyperlipidemia and labs TG 256 (10/10). Pt. nurse Catalina has placed the order to change diet per recommendation. Anthropometrics HT: 58 WT: 186 LB (84.55 kg) ABW: 151 LB (68.64) BMI: 28.28 (Overweight) GI/ Skin Integrity GI: WNL, Soft, Non-Tender BM: 10/11 x1 I/O: 240/Not Noted Skin: WNL, Intact Juan Carlos: 21 Diet Order: [facility] Estimated Energy Needs: ( Geriatric, ABW) 2637-1761 kcals (25-30 kcals/ kg) 69-82g Pro (1.0-1.2 g/kg) 1700- 2000 ml (25-30 ml/kg) Current Diet Order/ Nutrition Support [facility] Pertinent Medications Maalox (PRN), Lipitor, Tegretol, Colace, Glucotrol, MOM, Glucophage, Theragran Pertinent Labs 10/10: Glucose 122, TG 256, HDL 52, Na 124, Ca 8.1, Cl 91 Nutritional Hx/Data Height 1.73 m Height (Calculated Centimeters) 172.7 Current Weight (lbs) 84.368 kg Weight (Calculated Kilograms) 84.4 Weight (Calculated Grams) 28075.2 [place] Body Weight 140 % [place] Body Weight 107 Body Mass Index (BMI) 28.3 Weight Status Overweight GI Symptoms GI Symptoms None Last BM 10/11 Skin Integrity/Comment: Skin: WNL, Intact Juan Carlos: 21 Current %PO Good (75-100%) Estimated Nutritional Goals BEE in Kcals: Adj wt of IBW Calories/Kcals/Kg 25-30 Kcals Calculated 3785-8073 Protein: Adj wt of IBW Protein g/k.0-1.2 Protein Calculated 69-82 Fluid: ml 1700- 2000 ml (25-30 ml/kg) Nutritional Problem 1. Problem Problem Altered nutrition related labs Etiology labs r/t endocrine dysfunction and history of hyperlipidemia Signs/Symptoms: aeb recent laboratory values, Glucose 122, TG 256 Malnutrition Related to Morbid Obesity Malnutrition related to morbid obesity No Intervention/Recommendation Comments 1. Recommendation to add a cardiac diet to current diet rx. 2. Continue antihyperglycemic medications for glucose control per MD order. Expected Outcomes/Goals Expected Outcomes/Goals 1. PO intake to continue to meet >75% of estimated nutritional needs. 2.Monitor PO intake, wt, nutrition related labs, and skin integrity to trend WNL. 3. F/U as low risk in 7-10 days, 10/20-10/23
[2019-10-15] MEDS: Atorvastatin Calcium 10 MG TAB PO SCH (21:05)
[2019-10-16] MEDS: Multivitamin Tab PO SCH (08:32)
--- NOTE | 2019-10-16 14:50 | General Progress Note ---
Subjective - Review of Systems Service Date: 10/16/19 Subjective: resting comfortably no distress Objective - Physical Exam Vitals and I&O: Vital Signs Temp 98.2 F 10/16/19 06:26 Pulse 105 10/16/19 06:26 Resp 19 10/16/19 08:00 BP 126/92 10/16/19 06:26 Pulse Ox 96 10/16/19 06:26 Intake & Output 10/15/19 10/16/19 10/16/19 18:59 06:59 18:59 Intake Total 1200 240 Balance 1200 240 Intake: Oral 1200 240 Other: # Voids 1 # Bowel Movements 1 0 Active Medications: Current Medications Acetaminophen (Tylenol) 650 mg PO Q4H PRN PRN Reason: Pain (Mild 1-3) Stop: 12/10/19 21:58 Acetaminophen (Tylenol) 650 mg PO Q4HR PRN PRN Reason: Temp above 100 Stop: 12/11/19 00:03 Al Hydrox/Mg Hydrox/Simethicone (Maalox) 30 ml PO Q4HR PRN PRN Reason: GI DISTRESS Stop: 12/11/19 00:03 Atorvastatin Calcium (Lipitor) 10 mg PO HS [facility]; Protocol Stop: 12/11/19 20:59 Last Admin: 10/15/19 21:05 Dose: 10 mg Carbamazepine (Tegretol) 200 mg PO TID [facility]; Protocol Stop: 12/11/19 08:59 Last Admin: 10/16/19 13:06 Dose: 200 mg Docusate Sodium (Colace) 100 mg PO BID [facility] Stop: 12/11/19 08:59 Last Admin: 10/16/19 08:32 Dose: 100 mg Fluphenazine HCl (Prolixin) 2.5 mg PO DAILY [facility]; Protocol Stop: 12/11/19 08:59 Last Admin: 10/16/19 08:29 Dose: 2.5 mg Glipizide (Glucotrol) 5 mg PO BID [facility] Stop: 12/11/19 08:59 Last Admin: 10/16/19 08:31 Dose: 5 mg Lorazepam (Ativan) 0.5 mg PO Q4HR PRN; Protocol PRN Reason: Anxiety Stop: 11/10/19 21:58 Last Admin: 10/15/19 13:00 Dose: 0.5 mg Magnesium Hydroxide (Milk Of Magnesia) 30 ml PO HS PRN PRN Reason: Constipation Stop: 12/11/19 00:03 Metformin HCl (Glucophage) 1,000 mg PO BID [facility] Stop: 12/11/19 08:59 Last Admin: 10/16/19 08:33 Dose: 1,000 mg Multivitamins/Vitamin C (Theragran) 1 tab PO DAILY [facility] Stop: 12/11/19 08:59 Last Admin: 10/16/19 08:32 Dose: 1 tab Olanzapine 10 mg/ Olanzapine 2 (.5 mg) 12.5 mg PO BID [facility] Stop: 12/11/19 16:59 Last Admin: 10/16/19 08:31 Dose: 12.5 mg Zolpidem Tartrate (Ambien) 5 mg PO HS PRN PRN Reason: Insomnia Stop: 12/10/19 21:58 Last Admin: 10/15/19 21:06 Dose: 5 mg General: Alert, Oriented x3 HEENT: Atraumatic, PERRLA, EOMI Neck: Supple, JVD, Thyromegaly Cardiovascular: Regular rate, Normal S1, Normal S2 Lungs: Clear to auscultation Abdomen: Bowel sounds, Soft Assessment/Plan - Assessment Assessment: 1.DM. 2.HYPERLIPIDEMIA. 3.SEIZURE DISORDER 4.SCHIZO AFFECTIVE DISORDERS - Plan Plan: continue current treatment Nutritional Asmnt/Malnutr-PDOC - Dietary Evaluation Malnutrition Findings (Please click <Entered> for more info): Nutritional Asmnt/Malnutrition Start: 10/14/19 13: 27 Text: Status: Complete Freq: Protocol: Document 10/14/19 13:28 EDVIN (Rec: 10/14/19 13:35 EDVIN [email or web address]) Nutritional Asmnt/Malnutrition Patient General Information Nutritional Screening Moderate Risk Diagnosis Psychosis Pertinent Medical Hx/Surgical Hx Diabetes mellitus, seizure disorder, hyperlipidemia, schizoaffective disorder Subjective Information Pt is a 49-year-old female admitted on 10/10 d/t acting out, agitated, and delusional. Pt is eating an estimated 100 % of meals Per Meal/Nutrition Activity Record. Dietary is currently providing an estimated 2017 kcals and 120 gm Pro (x2 days), per Pt PO intake this is providing an estimated 2017 kcals and 120gm Pro to meet 100% kcal and 100 % Pro needs- adequate. Visited pt. after lunch, introduced myself, inquired how she was eating. Pt. stated she was eating just fine. Spoke to pt. about their high TG levels, pt. understood and stated they are watching their fat intake and reducing meat consumption. Recommendation to add a cardiac diet due hx of hyperlipidemia and labs TG 256 (10/10). Pt. nurse Catalina has placed the order to change diet per recommendation. Anthropometrics HT: 58 WT: 186 LB (84.55 kg) ABW: 151 LB (68.64) BMI: 28.28 (Overweight) GI/ Skin Integrity GI: WNL, Soft, Non-Tender BM: 10/11 x1 I/O: 240/Not Noted Skin: WNL, Intact Juan Carlos: 21 Diet Order: [facility] Estimated Energy Needs: ( Geriatric, ABW) 2068-2803 kcals (25-30 kcals/ kg) 69-82g Pro (1.0-1.2 g/kg) 1700- 2000 ml (25-30 ml/kg) Current Diet Order/ Nutrition Support [facility] Pertinent Medications Maalox (PRN), Lipitor, Tegretol, Colace, Glucotrol, MOM, Glucophage, Theragran Pertinent Labs 10/10: Glucose 122, TG 256, HDL 52, Na 124, Ca 8.1, Cl 91 Nutritional Hx/Data Height 1.73 m Height (Calculated Centimeters) 172.7 Current Weight (lbs) 84.368 kg Weight (Calculated Kilograms) 84.4 Weight (Calculated Grams) 95049.2 [place] Body Weight 140 % [place] Body Weight 107 Body Mass Index (BMI) 28.3 Weight Status Overweight GI Symptoms GI Symptoms None Last BM 10/11 Skin Integrity/Comment: Skin: WNL, Intact Juanc Arlos: 21 Current %PO Good (75-100%) Estimated Nutritional Goals BEE in Kcals: Adj wt of IBW Calories/Kcals/Kg 25-30 Kcals Calculated 9236-0066 Protein: Adj wt of IBW Protein g/k.0-1.2 Protein Calculated 69-82 Fluid: ml 1700- 2000 ml (25-30 ml/kg) Nutritional Problem 1. Problem Problem Altered nutrition related labs Etiology labs r/t endocrine dysfunction and history of hyperlipidemia Signs/Symptoms: aeb recent laboratory values, Glucose 122, TG 256 Malnutrition Related to Morbid Obesity Malnutrition related to morbid obesity No Intervention/Recommendation Comments 1. Recommendation to add a cardiac diet to current diet rx. 2. Continue antihyperglycemic medications for glucose control per MD order. Expected Outcomes/Goals Expected Outcomes/Goals 1. PO intake to continue to meet >75% of estimated nutritional needs. 2.Monitor PO intake, wt, nutrition related labs, and skin integrity to trend WNL. 3. F/U as low risk in 7-10 days, 10/20-10/23
[2019-10-16] MEDS: Atorvastatin Calcium 10 MG TAB PO SCH (20:41)
--- NOTE | 2019-10-16 23:49 | Progress Notes ---
DATE: 10/16/2019 PHYSICIAN: Dr. Bryce Pascalrees COVERING: Dr. Dariana Sepulveda SUBJECTIVE: The patient was interviewed. Case was discussed with staff. Chart and records were reviewed. Per the staff, the patient has been depressed, sad and withdrawn. The patient does have episodes of agitation and does have delusional thought at times. The patient was interviewed at bedside. She appears to be disorganized. She is not making any sense. She reports that she wants to make her own board and care in [place] and she will live there. She is otherwise unable to cooperate very much with the interview and quite disorganized and interview was terminated prematurely due to her poor ability to cooperate. MENTAL STATUS EXAMINATION: The patient is lying in the hospital bed. She is calm, but at times guarded. Speech is soft. Mood and affect appear to be blunted. Thought process appears to be disorganized. Unable to assess for suicidal or homicidal thoughts. The patient does appear to be internally preoccupied and also making bizarre statements and has bizarre delusions. She is alert and oriented to person only. Her insight, judgment and impulse control appear to be quite poor at this time. ASSESSMENT AND PLAN: We will continue the patient's acute hospitalization. We will continue medications as prescribed. Encourage the patient to verbalize her needs and to participate in group and milieu therapy. [facility]# [id number]
[2019-10-17] MEDS: Multivitamin Tab PO SCH (08:13)
--- NOTE | 2019-10-17 16:51 | Internal Medicine Prog Note ---
Internal Medicine Subjective - Subjective Service Date: 10/17/19 Patient seen and examined:: without staff (SHE FEELS WELL) Patient is:: awake, verbal, ambulating, talking, confused Per staff patient has:: no adverse event, eating well, confused, tolerating meds Internal Medicine Objective - Physical Exam Vitals and I&O: Vital Signs Temp 97.6 F 10/17/19 14:58 Pulse 105 10/17/19 14:58 Resp 20 10/17/19 14:58 BP 153/93 10/17/19 14:58 Pulse Ox 97 10/17/19 14:58 Intake & Output 10/16/19 10/17/19 10/17/19 18:59 06:59 18:59 Intake Total 550 360 Balance 550 360 Intake: Oral 550 360 Other: # Voids 1 # Bowel Movements 1 0 Active Medications: Current Medications Acetaminophen (Tylenol) 650 mg PO Q4H PRN PRN Reason: Pain (Mild 1-3) Stop: 12/10/19 21:58 Acetaminophen (Tylenol) 650 mg PO Q4HR PRN PRN Reason: Temp above 100 Stop: 12/11/19 00:03 Al Hydrox/Mg Hydrox/Simethicone (Maalox) 30 ml PO Q4HR PRN PRN Reason: GI DISTRESS Stop: 12/11/19 00:03 Atorvastatin Calcium (Lipitor) 10 mg PO HS [facility]; Protocol Stop: 12/11/19 20:59 Last Admin: 10/16/19 20:41 Dose: 10 mg Carbamazepine (Tegretol) 200 mg PO TID [facility]; Protocol Stop: 12/11/19 08:59 Last Admin: 10/17/19 13:08 Dose: Not Given Docusate Sodium (Colace) 100 mg PO BID [facility] Stop: 12/11/19 08:59 Last Admin: 10/17/19 16:31 Dose: 100 mg Fluphenazine HCl (Prolixin) 2.5 mg PO DAILY [facility]; Protocol Stop: 12/11/19 08:59 Last Admin: 10/17/19 08:13 Dose: 2.5 mg Glipizide (Glucotrol) 5 mg PO BID [facility] Stop: 12/11/19 08:59 Last Admin: 10/17/19 16:44 Dose: 5 mg Lorazepam (Ativan) 0.5 mg PO Q4HR PRN; Protocol PRN Reason: Anxiety Stop: 11/10/19 21:58 Last Admin: 10/15/19 13:00 Dose: 0.5 mg Magnesium Hydroxide (Milk Of Magnesia) 30 ml PO HS PRN PRN Reason: Constipation Stop: 12/11/19 00:03 Metformin HCl (Glucophage) 1,000 mg PO BID KENDRA Stop: 12/11/19 08:59 Last Admin: 10/17/19 16:31 Dose: 1,000 mg Multivitamins/Vitamin C (Theragran) 1 tab PO DAILY [facility]ENDRA Stop: 12/11/19 08:59 Last Admin: 10/17/19 08:13 Dose: 1 tab Olanzapine (Zyprexa) 15 mg PO BID [facility] Stop: 12/16/19 16:59 Last Admin: 10/17/19 16:31 Dose: 15 mg Zolpidem Tartrate (Ambien) 5 mg PO HS PRN PRN Reason: Insomnia Stop: 12/10/19 21:58 Last Admin: 10/16/19 20:41 Dose: 5 mg General: alert, demented HEENT: NC/AT, PERRLA, EOMI, anicteric sclerae, throat clear Neck: Supple, No JVD, No thyromegaly, +2 carotid pulse wo bruit, No LAD Lungs: CTAB Cardiovascular: Normal S1, Normal S2, without murmur Abdomen: soft, non-tender, non-distended Extremities: clear Neurological: no change, gait stable Internal Medicine Assmt/Plan - Assessment Assessment: 1.DM. 2.HYPERLIPIDEMIA. 3.SEIZURE DISORDER 4.SCHIZO AFFECTIVE DISORDERS - Plan Plan: CONTINUE ON CURRENT MEDICATION AND DIET Nutritional Asmnt/Malnutr-PDOC - Dietary Evaluation Malnutrition Findings (Please click <Entered> for more info): Nutritional Asmnt/Malnutrition Start: 10/14/19 13: 27 Text: Status: Complete Freq: Protocol: Document 10/14/19 13:28 EDVIN (Rec: 10/14/19 13:35 EDVIN [email or web address]) Nutritional Asmnt/Malnutrition Patient General Information Nutritional Screening Moderate Risk Diagnosis Psychosis Pertinent Medical Hx/Surgical Hx Diabetes mellitus, seizure disorder, hyperlipidemia, schizoaffective disorder Subjective Information Pt is a 49-year-old female admitted on 10/10 d/t acting out, agitated, and delusional. Pt is eating an estimated 100 % of meals Per Meal/Nutrition Activity Record. Dietary is currently providing an estimated 2017 kcals and 120 gm Pro (x2 days), per Pt PO intake this is providing an estimated 2017 kcals and 120gm Pro to meet 100% kcal and 100 % Pro needs- adequate. Visited pt. after lunch, introduced myself, inquired how she was eating. Pt. stated she was eating just fine. Spoke to pt. about their high TG levels, pt. understood and stated they are watching their fat intake and reducing meat consumption. Recommendation to add a cardiac diet due hx of hyperlipidemia and labs TG 256 (10/10). Pt. nurse Catalina has placed the order to change diet per recommendation. Anthropometrics HT: 58 WT: 186 LB (84.55 kg) ABW: 151 LB (68.64) BMI: 28.28 (Overweight) GI/ Skin Integrity GI: WNL, Soft, Non-Tender BM: 10/11 x1 I/O: 240/Not Noted Skin: WNL, Intact Juan Carlos: 21 Diet Order: [facility] Estimated Energy Needs: ( Geriatric, ABW) 2635-5486 kcals (25-30 kcals/ kg) 69-82g Pro (1.0-1.2 g/kg) 1700- 2000 ml (25-30 ml/kg) Current Diet Order/ Nutrition Support [facility] Pertinent Medications Maalox (PRN), Lipitor, Tegretol, Colace, Glucotrol, MOM, Glucophage, Theragran Pertinent Labs 10/10: Glucose 122, TG 256, HDL 52, Na 124, Ca 8.1, Cl 91 Nutritional Hx/Data Height 1.73 m Height (Calculated Centimeters) 172.7 Current Weight (lbs) 84.368 kg Weight (Calculated Kilograms) 84.4 Weight (Calculated Grams) 02073.2 [place] Body Weight 140 % [place] Body Weight 107 Body Mass Index (BMI) 28.3 Weight Status Overweight GI Symptoms GI Symptoms None Last BM 10/11 Skin Integrity/Comment: Skin: WNL, Intact Juan Carlos: 21 Current %PO Good (75-100%) Estimated Nutritional Goals BEE in Kcals: Adj wt of IBW Calories/Kcals/Kg 25-30 Kcals Calculated 5187-1545 Protein: Adj wt of IBW Protein g/k.0-1.2 Protein Calculated 69-82 Fluid: ml 1700- 2000 ml (25-30 ml/kg) Nutritional Problem 1. Problem Problem Altered nutrition related labs Etiology labs r/t endocrine dysfunction and history of hyperlipidemia Signs/Symptoms: aeb recent laboratory values, Glucose 122, TG 256 Malnutrition Related to Morbid Obesity Malnutrition related to morbid obesity No Intervention/Recommendation Comments 1. Recommendation to add a cardiac diet to current diet rx. 2. Continue antihyperglycemic medications for glucose control per MD order. Expected Outcomes/Goals Expected Outcomes/Goals 1. PO intake to continue to meet >75% of estimated nutritional needs. 2.Monitor PO intake, wt, nutrition related labs, and skin integrity to trend WNL. 3. F/U as low risk in 7-10 days, 10/20-10/23
--- NOTE | 2019-10-17 19:45 | Progress Notes ---
DATE: 10/17/2019 Case was discussed with staff of the patient, reviewed records. The patient continues to be paranoid, continues to be depressed, still has episodes of agitation, delusional. The patient continues to be disorganized, unable to make safe plan for self-care, not participate in meaningful conversation. She is grandiose, believes she can make her own board and care in [place]. Continues to have poor insight. No side effects with the medication, no sedation, no nausea, no extrapyramidal symptoms. I will be increasing her Zyprexa to 15mg twice a day to help improve her psychotic symptoms, delusional behavior, agitated behavior. We will continue outpatient group therapy, milieu therapy, adjust the medication as needed. JOB# [id number] MTDAdam
[2019-10-17] MEDS: Atorvastatin Calcium 10 MG TAB PO SCH (21:01)
[2019-10-18] MEDS: Multivitamin Tab PO SCH (08:19)
--- NOTE | 2019-10-18 12:58 | Progress Notes ---
DATE: 10/18/2019 FOLLOWUP PROGRESS NOTE SUBJECTIVE: Case was discussed with staff of the patient, reviewed records. The patient continues to be paranoid, continues to have poor insight. She is tolerating increase in Zyprexa to 50 mg twice a day with no side effects, no sedation, no nausea, no extrapyramidal symptoms. Continues to be internally preoccupied, isolating herself, pacing the hallway. We will continue outpatient group therapy, milieu therapy, and adjust medications as needed. JOB# [id number]
[2019-10-18] MEDS: Atorvastatin Calcium 10 MG TAB PO SCH (20:24)
--- NOTE | 2019-10-18 20:36 | Internal Medicine Prog Note ---
Internal Medicine Subjective - Subjective Service Date: 10/18/19 Patient seen and examined:: without staff (SHE FEELS WELL) Patient is:: awake, verbal, ambulating, talking, confused Per staff patient has:: no adverse event, eating well, confused, tolerating meds Internal Medicine Objective - Physical Exam Vitals and I&O: Vital Signs Temp 97.9 F 10/18/19 14:32 Pulse 95 10/18/19 14:32 Resp 18 10/18/19 14:32 BP 130/96 10/18/19 14:32 Pulse Ox 99 10/18/19 14:32 Intake & Output 10/18/19 10/18/19 10/19/19 06:59 18:59 06:59 Intake Total 120 Balance 120 Intake: Oral 120 Other: # Voids 3 3 # Bowel Movements 0 1 Active Medications: Current Medications Acetaminophen (Tylenol) 650 mg PO Q4H PRN PRN Reason: Pain (Mild 1-3) Stop: 12/10/19 21:58 Acetaminophen (Tylenol) 650 mg PO Q4HR PRN PRN Reason: Temp above 100 Stop: 12/11/19 00:03 Al Hydrox/Mg Hydrox/Simethicone (Maalox) 30 ml PO Q4HR PRN PRN Reason: GI DISTRESS Stop: 12/11/19 00:03 Atorvastatin Calcium (Lipitor) 10 mg PO HS [facility]; Protocol Stop: 12/11/19 20:59 Last Admin: 10/18/19 20:24 Dose: 10 mg Carbamazepine (Tegretol) 200 mg PO TID [facility]; Protocol Stop: 12/11/19 08:59 Last Admin: 10/18/19 20:24 Dose: Not Given Docusate Sodium (Colace) 100 mg PO BID [facility] Stop: 12/11/19 08:59 Last Admin: 10/18/19 17:31 Dose: 100 mg Fluphenazine HCl (Prolixin) 2.5 mg PO DAILY [facility]; Protocol Stop: 12/11/19 08:59 Last Admin: 10/18/19 08:19 Dose: 2.5 mg Glipizide (Glucotrol) 5 mg PO BID [facility] Stop: 12/11/19 08:59 Last Admin: 10/18/19 17:31 Dose: 5 mg Lorazepam (Ativan) 0.5 mg PO Q4HR PRN; Protocol PRN Reason: Anxiety Stop: 11/10/19 21:58 Last Admin: 10/15/19 13:00 Dose: 0.5 mg Magnesium Hydroxide (Milk Of Magnesia) 30 ml PO HS PRN PRN Reason: Constipation Stop: 12/11/19 00:03 Metformin HCl (Glucophage) 1,000 mg PO BID KENDRA Stop: 12/11/19 08:59 Last Admin: 10/18/19 17:31 Dose: 1,000 mg Multivitamins/Vitamin C (Theragran) 1 tab PO DAILY [facility] Stop: 12/11/19 08:59 Last Admin: 10/18/19 08:19 Dose: 1 tab Olanzapine (Zyprexa) 15 mg PO BID [facility]DR[facility] Stop: 12/16/19 16:59 Last Admin: 10/18/19 17:31 Dose: 15 mg Zolpidem Tartrate (Ambien) 5 mg PO HS PRN PRN Reason: Insomnia Stop: 12/10/19 21:58 Last Admin: 10/17/19 21:00 Dose: 5 mg General: alert, demented HEENT: NC/AT, PERRLA, EOMI, anicteric sclerae, throat clear Neck: Supple, No JVD, No thyromegaly, +2 carotid pulse wo bruit, No LAD Lungs: CTAB Cardiovascular: Normal S1, Normal S2, without murmur Abdomen: soft, non-tender, non-distended Extremities: clear Neurological: no change, gait stable Internal Medicine Assmt/Plan - Assessment Assessment: 1.DM. 2.HYPERLIPIDEMIA. 3.SEIZURE DISORDER 4.SCHIZO AFFECTIVE DISORDERS - Plan Plan: CONTINUE ON CURRENT MEDICATION AND DIET Nutritional Asmnt/Malnutr-PDOC - Dietary Evaluation Malnutrition Findings (Please click <Entered> for more info): Nutritional Asmnt/Malnutrition Start: 10/14/19 13: 27 Text: Status: Complete Freq: Protocol: Document 10/14/19 13:28 EDVIN (Rec: 10/14/19 13:35 EDVIN [email or web address]) Nutritional Asmnt/Malnutrition Patient General Information Nutritional Screening Moderate Risk Diagnosis Psychosis Pertinent Medical Hx/Surgical Hx Diabetes mellitus, seizure disorder, hyperlipidemia, schizoaffective disorder Subjective Information Pt is a 49-year-old female admitted on 10/10 d/t acting out, agitated, and delusional. Pt is eating an estimated 100 % of meals Per Meal/Nutrition Activity Record. Dietary is currently providing an estimated 2017 kcals and 120 gm Pro (x2 days), per Pt PO intake this is providing an estimated 2017 kcals and 120gm Pro to meet 100% kcal and 100 % Pro needs- adequate. Visited pt. after lunch, introduced myself, inquired how she was eating. Pt. stated she was eating just fine. Spoke to pt. about their high TG levels, pt. understood and stated they are watching their fat intake and reducing meat consumption. Recommendation to add a cardiac diet due hx of hyperlipidemia and labs TG 256 (10/10). Pt. nurse Catalina has placed the order to change diet per recommendation. Anthropometrics HT: 58 WT: 186 LB (84.55 kg) ABW: 151 LB (68.64) BMI: 28.28 (Overweight) GI/ Skin Integrity GI: WNL, Soft, Non-Tender BM: 10/11 x1 I/O: 240/Not Noted Skin: WNL, Intact Juan Carlos: 21 Diet Order: [facility] [place] Estimated Energy Needs: ( Geriatric, ABW) 9477-8130 kcals (25-30 kcals/ kg) 69-82g Pro (1.0-1.2 g/kg) 1700- 2000 ml (25-30 ml/kg) Current Diet Order/ Nutrition Support [facility] [place] Pertinent Medications Maalox (PRN), Lipitor, Tegretol, Colace, Glucotrol, MOM, Glucophage, Theragran Pertinent Labs 10/10: Glucose 122, TG 256, HDL 52, Na 124, Ca 8.1, Cl 91 Nutritional Hx/Data Height 1.73 m Height (Calculated Centimeters) 172.7 Current Weight (lbs) 84.368 kg Weight (Calculated Kilograms) 84.4 Weight (Calculated Grams) 19213.2 [place] Body Weight 140 % [place] Body Weight 107 Body Mass Index (BMI) 28.3 Weight Status Overweight GI Symptoms GI Symptoms None Last BM 10/11 Skin Integrity/Comment: Skin: WNL, Intact Juan Carlos: 21 Current %PO Good (75-100%) Estimated Nutritional Goals BEE in Kcals: Adj wt of IBW Calories/Kcals/Kg 25-30 Kcals Calculated 3233-3882 Protein: Adj wt of IBW Protein g/k.0-1.2 Protein Calculated 69-82 Fluid: ml 1700- 2000 ml (25-30 ml/kg) Nutritional Problem 1. Problem Problem Altered nutrition related labs Etiology labs r/t endocrine dysfunction and history of hyperlipidemia Signs/Symptoms: aeb recent laboratory values, Glucose 122, TG 256 Malnutrition Related to Morbid Obesity Malnutrition related to morbid obesity No Intervention/Recommendation Comments 1. Recommendation to add a cardiac diet to current diet rx. 2. Continue antihyperglycemic medications for glucose control per MD order. Expected Outcomes/Goals Expected Outcomes/Goals 1. PO intake to continue to meet >75% of estimated nutritional needs. 2.Monitor PO intake, wt, nutrition related labs, and skin integrity to trend WNL. 3. F/U as low risk in 7-10 days, 10/20-10/23
[2019-10-19] MEDS: Multivitamin Tab PO SCH (08:18)
--- NOTE | 2019-10-19 19:29 | Progress Notes ---
DATE: 10/19/2019 SUBJECTIVE: Case was discussed with staff of the patient, reviewed records. The patient is refusing Tegretol. When asked why she was not taking it, she has no answers. She is sleeping better, eating better, tolerating increase in olanzapine to 50 mg twice a day with no side effects, no sedation, no nausea, no extrapyramidal symptoms and she continues to be unpredictable, impulsive, needing redirection, paranoid. We will continue outpatient group therapy, milieu therapy, and adjust medications as needed. JOB# [id number]
[2019-10-19] MEDS: Atorvastatin Calcium 10 MG TAB PO SCH (20:32)
--- NOTE | 2019-10-19 22:15 | Internal Medicine Prog Note ---
Internal Medicine Subjective - Subjective Service Date: 10/19/19 Patient seen and examined:: without staff (SHE FEELS WELL) Patient is:: awake, verbal, ambulating, talking, confused Per staff patient has:: no adverse event, eating well, confused, tolerating meds Internal Medicine Objective - Physical Exam Vitals and I&O: Vital Signs Temp 97.8 F 10/19/19 20:01 Pulse 72 10/19/19 20:01 Resp 20 10/19/19 20:01 BP 127/85 10/19/19 20:01 Pulse Ox 98 10/19/19 20:01 Intake & Output 10/19/19 10/19/19 10/20/19 06:59 18:59 06:59 Intake Total 900 120 Balance 900 120 Intake: Oral 900 120 Other: # Voids 3 3 2 # Bowel Movements 0 1 0 Active Medications: Current Medications Acetaminophen (Tylenol) 650 mg PO Q4H PRN PRN Reason: Pain (Mild 1-3) Stop: 12/10/19 21:58 Acetaminophen (Tylenol) 650 mg PO Q4HR PRN PRN Reason: Temp above 100 Stop: 12/11/19 00:03 Al Hydrox/Mg Hydrox/Simethicone (Maalox) 30 ml PO Q4HR PRN PRN Reason: GI DISTRESS Stop: 12/11/19 00:03 Atorvastatin Calcium (Lipitor) 10 mg PO HS [facility]; Protocol Stop: 12/11/19 20:59 Last Admin: 10/19/19 20:32 Dose: 10 mg Carbamazepine (Tegretol) 200 mg PO TID [facility]; Protocol Stop: 12/11/19 08:59 Last Admin: 10/19/19 20:36 Dose: Not Given Docusate Sodium (Colace) 100 mg PO BID [facility] Stop: 12/11/19 08:59 Last Admin: 10/19/19 16:30 Dose: 100 mg Fluphenazine HCl (Prolixin) 2.5 mg PO DAILY [facility]; Protocol Stop: 12/11/19 08:59 Last Admin: 10/19/19 08:18 Dose: 2.5 mg Glipizide (Glucotrol) 5 mg PO BID [facility] Stop: 12/11/19 08:59 Last Admin: 10/19/19 16:30 Dose: 5 mg Lorazepam (Ativan) 0.5 mg PO Q4HR PRN; Protocol PRN Reason: Anxiety Stop: 12/18/19 13:07 Magnesium Hydroxide (Milk Of Magnesia) 30 ml PO HS PRN PRN Reason: Constipation Stop: 12/11/19 00:03 Metformin HCl (Glucophage) 1,000 mg PO BID [facility] Stop: 12/11/19 08:59 Last Admin: 10/19/19 16:30 Dose: 1,000 mg Multivitamins/Vitamin C (Theragran) 1 tab PO DAILY [facility] Stop: 12/11/19 08:59 Last Admin: 10/19/19 08:18 Dose: 1 tab Olanzapine (Zyprexa) 15 mg PO BID [facility] Stop: 12/16/19 16:59 Last Admin: 10/19/19 16:30 Dose: 15 mg Zolpidem Tartrate (Ambien) 5 mg PO HS PRN PRN Reason: Insomnia Stop: 12/18/19 11:16 General: alert, demented HEENT: NC/AT, PERRLA, EOMI, anicteric sclerae, throat clear Neck: Supple, No JVD, No thyromegaly, +2 carotid pulse wo bruit, No LAD Lungs: CTAB Cardiovascular: Normal S1, Normal S2, without murmur Abdomen: soft, non-tender, non-distended Extremities: clear Neurological: no change, gait stable Internal Medicine Assmt/Plan - Assessment Assessment: 1.DM. 2.HYPERLIPIDEMIA. 3.SEIZURE DISORDER 4.SCHIZO AFFECTIVE DISORDERS - Plan Plan: CONTINUE ON CURRENT MEDICATION AND DIET Nutritional Asmnt/Malnutr-PDOC - Dietary Evaluation Malnutrition Findings (Please click <Entered> for more info): Nutritional Asmnt/Malnutrition Start: 10/14/19 13: 27 Text: Status: Complete Freq: Protocol: Document 10/14/19 13:28 EDVIN (Rec: 10/14/19 13:35 EDVIN [email or web address]) Nutritional Asmnt/Malnutrition Patient General Information Nutritional Screening Moderate Risk Diagnosis Psychosis Pertinent Medical Hx/Surgical Hx Diabetes mellitus, seizure disorder, hyperlipidemia, schizoaffective disorder Subjective Information Pt is a 49-year-old female admitted on 10/10 d/t acting out, agitated, and delusional. Pt is eating an estimated 100 % of meals Per Meal/Nutrition Activity Record. Dietary is currently providing an estimated 2017 kcals and 120 gm Pro (x2 days), per Pt PO intake this is providing an estimated 2017 kcals and 120gm Pro to meet 100% kcal and 100 % Pro needs- adequate. Visited pt. after lunch, introduced myself, inquired how she was eating. Pt. stated she was eating just fine. Spoke to pt. about their high TG levels, pt. understood and stated they are watching their fat intake and reducing meat consumption. Recommendation to add a cardiac diet due hx of hyperlipidemia and labs TG 256 (10/10). Pt. nurse Catalina has placed the order to change diet per recommendation. Anthropometrics HT: 58 WT: 186 LB (84.55 kg) ABW: 151 LB (68.64) BMI: 28.28 (Overweight) GI/ Skin Integrity GI: WNL, Soft, Non-Tender BM: 10/11 x1 I/O: 240/Not Noted Skin: WNL, Intact Juan Carlos: 21 Diet Order: [facility] Estimated Energy Needs: ( Geriatric, ABW) 5369-8726 kcals (25-30 kcals/ kg) 69-82g Pro (1.0-1.2 g/kg) 1700- 2000 ml (25-30 ml/kg) Current Diet Order/ Nutrition Support [facility] Pertinent Medications Maalox (PRN), Lipitor, Tegretol, Colace, Glucotrol, MOM, Glucophage, Theragran Pertinent Labs 10/10: Glucose 122, TG 256, HDL 52, Na 124, Ca 8.1, Cl 91 Nutritional Hx/Data Height 1.73 m Height (Calculated Centimeters) 172.7 Current Weight (lbs) 84.368 kg Weight (Calculated Kilograms) 84.4 Weight (Calculated Grams) 80705.2 [place] Body Weight 140 % [place] Body Weight 107 Body Mass Index (BMI) 28.3 Weight Status Overweight GI Symptoms GI Symptoms None Last BM 10/11 Skin Integrity/Comment: Skin: WNL, Intact Juan Carlos: 21 Current %PO Good (75-100%) Estimated Nutritional Goals BEE in Kcals: Adj wt of IBW Calories/Kcals/Kg 25-30 Kcals Calculated 8057-3669 Protein: Adj wt of IBW Protein g/k.0-1.2 Protein Calculated 69-82 Fluid: ml 1700- 2000 ml (25-30 ml/kg) Nutritional Problem 1. Problem Problem Altered nutrition related labs Etiology labs r/t endocrine dysfunction and history of hyperlipidemia Signs/Symptoms: aeb recent laboratory values, Glucose 122, TG 256 Malnutrition Related to Morbid Obesity Malnutrition related to morbid obesity No Intervention/Recommendation Comments 1. Recommendation to add a cardiac diet to current diet rx. 2. Continue antihyperglycemic medications for glucose control per MD order. Expected Outcomes/Goals Expected Outcomes/Goals 1. PO intake to continue to meet >75% of estimated nutritional needs. 2.Monitor PO intake, wt, nutrition related labs, and skin integrity to trend WNL. 3. F/U as low risk in 7-10 days, 10/20-10/23
[2019-10-20] MEDS: Multivitamin Tab PO SCH (08:17)
--- NOTE | 2019-10-20 19:46 | Internal Medicine Prog Note ---
Internal Medicine Subjective - Subjective Service Date: 10/20/19 Patient seen and examined:: without staff (SHE FEELS WELL) Patient is:: awake, verbal, ambulating, talking, confused Per staff patient has:: no adverse event, eating well, confused, tolerating meds Internal Medicine Objective - Physical Exam Vitals and I&O: Vital Signs Temp 98.1 F 10/20/19 14:00 Pulse 99 10/20/19 14:00 Resp 20 10/20/19 14:00 BP 132/75 10/20/19 14:00 Pulse Ox 99 10/20/19 14:00 Intake & Output 10/20/19 10/20/19 10/21/19 06:59 18:59 06:59 Intake Total 240 1200 Balance 240 1200 Intake: Oral 240 1080 Other 120 Other: # Voids 2 3 # Bowel Movements 0 1 Active Medications: Current Medications Acetaminophen (Tylenol) 650 mg PO Q4H PRN PRN Reason: Pain (Mild 1-3) Stop: 12/10/19 21:58 Last Admin: 10/20/19 16:41 Dose: 650 mg Acetaminophen (Tylenol) 650 mg PO Q4HR PRN PRN Reason: Temp above 100 Stop: 12/11/19 00:03 Al Hydrox/Mg Hydrox/Simethicone (Maalox) 30 ml PO Q4HR PRN PRN Reason: GI DISTRESS Stop: 12/11/19 00:03 Atorvastatin Calcium (Lipitor) 10 mg PO HS [facility]; Protocol Stop: 12/11/19 20:59 Last Admin: 10/19/19 20:32 Dose: 10 mg Carbamazepine (Tegretol) 200 mg PO TID [facility]; Protocol Stop: 12/11/19 08:59 Last Admin: 10/20/19 14:03 Dose: Not Given Docusate Sodium (Colace) 100 mg PO BID [facility] Stop: 12/11/19 08:59 Last Admin: 10/20/19 16:25 Dose: Not Given Fluphenazine HCl (Prolixin) 2.5 mg PO DAILY [facility]; Protocol Stop: 12/11/19 08:59 Last Admin: 10/20/19 08:17 Dose: 2.5 mg Glipizide (Glucotrol) 5 mg PO BID [facility] Stop: 12/11/19 08:59 Last Admin: 03/19/20 16:25 Dose: 5 mg Lorazepam (Ativan) 0.5 mg PO Q4HR PRN; Protocol PRN Reason: Anxiety Stop: 12/18/19 13:07 Magnesium Hydroxide (Milk Of Magnesia) 30 ml PO HS PRN PRN Reason: Constipation Stop: 12/11/19 00:03 Metformin HCl (Glucophage) 1,000 mg PO BID [facility] Stop: 12/11/19 08:59 Last Admin: 10/20/19 16:25 Dose: 1,000 mg Multivitamins/Vitamin C (Theragran) 1 tab PO DAILY [facility] Stop: 12/11/19 08:59 Last Admin: 10/20/19 08:17 Dose: 1 tab Olanzapine (Zyprexa) 15 mg PO BID [facility] Stop: 12/16/19 16:59 Last Admin: 10/20/19 16:25 Dose: 15 mg Zolpidem Tartrate (Ambien) 5 mg PO HS PRN PRN Reason: Insomnia Stop: 12/18/19 11:16 Last Admin: 10/20/19 00:05 Dose: 5 mg General: alert, demented HEENT: NC/AT, PERRLA, EOMI, anicteric sclerae, throat clear Neck: Supple, No JVD, No thyromegaly, +2 carotid pulse wo bruit, No LAD Lungs: CTAB Cardiovascular: Normal S1, Normal S2, without murmur Abdomen: soft, non-tender, non-distended Extremities: clear Neurological: no change, gait stable Internal Medicine Assmt/Plan - Assessment Assessment: 1.DM. 2.HYPERLIPIDEMIA. 3.SEIZURE DISORDER 4.SCHIZO AFFECTIVE DISORDERS - Plan Plan: CONTINUE ON CURRENT MEDICATION AND DIET Nutritional Asmnt/Malnutr-PDOC - Dietary Evaluation Malnutrition Findings (Please click <Entered> for more info): Nutritional Asmnt/Malnutrition Start: 10/14/19 13: 27 Text: Status: Complete Freq: Protocol: Document 10/14/19 13:28 EDVIN (Rec: 10/14/19 13:35 EDVIN [email or web address]) Nutritional Asmnt/Malnutrition Patient General Information Nutritional Screening Moderate Risk Diagnosis Psychosis Pertinent Medical Hx/Surgical Hx Diabetes mellitus, seizure disorder, hyperlipidemia, schizoaffective disorder Subjective Information Pt is a 49-year-old female admitted on 10/10 d/t acting out, agitated, and delusional. Pt is eating an estimated 100 % of meals Per Meal/Nutrition Activity Record. Dietary is currently providing an estimated 2017 kcals and 120 gm Pro (x2 days), per Pt PO intake this is providing an estimated 2017 kcals and 120gm Pro to meet 100% kcal and 100 % Pro needs- adequate. Visited pt. after lunch, introduced myself, inquired how she was eating. Pt. stated she was eating just fine. Spoke to pt. about their high TG levels, pt. understood and stated they are watching their fat intake and reducing meat consumption. Recommendation to add a cardiac diet due hx of hyperlipidemia and labs TG 256 (10/10). Pt. nurse Catalina has placed the order to change diet per recommendation. Anthropometrics HT: 58 WT: 186 LB (84.55 kg) ABW: 151 LB (68.64) BMI: 28.28 (Overweight) GI/ Skin Integrity GI: WNL, Soft, Non-Tender BM: 10/11 x1 I/O: 240/Not Noted Skin: WNL, Intact Juan Carlos: 21 Diet Order: [facility] Estimated Energy Needs: ( Geriatric, ABW) 0169-6314 kcals (25-30 kcals/ kg) 69-82g Pro (1.0-1.2 g/kg) 1700- 2000 ml (25-30 ml/kg) Current Diet Order/ Nutrition Support [facility] Pertinent Medications Maalox (PRN), Lipitor, Tegretol, Colace, Glucotrol, MOM, Glucophage, Theragran Pertinent Labs 10/10: Glucose 122, TG 256, HDL 52, Na 124, Ca 8.1, Cl 91 Nutritional Hx/Data Height 1.73 m Height (Calculated Centimeters) 172.7 Current Weight (lbs) 84.368 kg Weight (Calculated Kilograms) 84.4 Weight (Calculated Grams) 68653.2 [place] Body Weight 140 % [place] Body Weight 107 Body Mass Index (BMI) 28.3 Weight Status Overweight GI Symptoms GI Symptoms None Last BM 10/11 Skin Integrity/Comment: Skin: WNL, Intact Juan Carlos: 21 Current %PO Good (75-100%) Estimated Nutritional Goals BEE in Kcals: Adj wt of IBW Calories/Kcals/Kg 25-30 Kcals Calculated 9397-8493 Protein: Adj wt of IBW Protein g/k.0-1.2 Protein Calculated 69-82 Fluid: ml 1700- 2000 ml (25-30 ml/kg) Nutritional Problem 1. Problem Problem Altered nutrition related labs Etiology labs r/t endocrine dysfunction and history of hyperlipidemia Signs/Symptoms: aeb recent laboratory values, Glucose 122, TG 256 Malnutrition Related to Morbid Obesity Malnutrition related to morbid obesity No Intervention/Recommendation Comments 1. Recommendation to add a cardiac diet to current diet rx. 2. Continue antihyperglycemic medications for glucose control per MD order. Expected Outcomes/Goals Expected Outcomes/Goals 1. PO intake to continue to meet >75% of estimated nutritional needs. 2.Monitor PO intake, wt, nutrition related labs, and skin integrity to trend WNL. 3. F/U as low risk in 7-10 days, 10/20-10/23
[2019-10-20] MEDS: Atorvastatin Calcium 10 MG TAB PO SCH (20:51)
--- NOTE | 2019-10-20 22:00 | Progress Notes ---
DATE: 10/20/2019 FOLLOWUP PROGRESS NOTE Case was discussed with staff of the patient, reviewed records. The patient is refusing part of her medication. I talked with the nurse, she denied that she says she is taking all her medication. Continues to be unpredictable, impulsive, paranoid, continues to have poor insight, unable to make safe plan for self-care, needing redirection. No side effects with the medication, no sedation, no nausea, no extrapyramidal symptoms. I encouraged the patient to make sure she takes her medication and she states she has taken it and did not give me any reason for her refusal. We will continue outpatient group therapy, milieu therapy, and adjust medications as needed. [facility]# [id number]
[2019-10-21] MEDS: Multivitamin Tab PO SCH (08:28)
--- NOTE | 2019-10-21 13:37 | Progress Notes ---
DATE: 10/21/2019 Case was discussed with staff of the patient. The patient is refusing Tegretol. She thinks there is something , I do not know that she meant. However, I will be increasing her Prolixin to 5 mg daily. I also increase her Zyprexa to 50 mg twice a day. She is compliant with those medications with no side effects, no sedation, no nausea, and no extrapyramidal symptoms. We will continue outpatient group therapy, milieu therapy, and adjust medications as needed. JOB# [id number] MTDD
[2019-10-21] MEDS ORDERED: GLUCAGON HCl 1 MG KIT IM PRN (18:09)
--- NOTE | 2019-10-21 18:10 | Internal Medicine Prog Note ---
Internal Medicine Subjective - Subjective Service Date: 10/21/19 Patient seen and examined:: without staff (SHE FEELS BETTER) Patient is:: awake, verbal, ambulating, talking, confused Per staff patient has:: no adverse event, eating well, confused, tolerating meds Internal Medicine Objective - Results Recent Labs: Laboratory Last Values POC Glucose 162 MG/DL (70 - 105) H 10/21/19 16:25 - Physical Exam Vitals and I&O: Vital Signs Temp 98 F 10/21/19 14:00 Pulse 90 10/21/19 14:00 Resp 18 10/21/19 14:00 BP 128/79 10/21/19 14:00 Pulse Ox 98 10/21/19 14:00 Intake & Output 10/20/19 10/21/19 10/21/19 18:59 06:59 18:59 Intake Total 1200 360 Balance 1200 360 Intake: Oral 1080 360 Other 120 Other: # Voids 3 1 # Bowel Movements 1 0 Active Medications: Current Medications Acetaminophen (Tylenol) 650 mg PO Q4H PRN PRN Reason: Pain (Mild 1-3) Stop: 12/10/19 21:58 Last Admin: 10/20/19 16:41 Dose: 650 mg Acetaminophen (Tylenol) 650 mg PO Q4HR PRN PRN Reason: Temp above 100 Stop: 12/11/19 00:03 Al Hydrox/Mg Hydrox/Simethicone (Maalox) 30 ml PO Q4HR PRN PRN Reason: GI DISTRESS Stop: 12/11/19 00:03 Atorvastatin Calcium (Lipitor) 10 mg PO HS [facility]; Protocol Stop: 12/11/19 20:59 Last Admin: 10/20/19 20:51 Dose: 10 mg Carbamazepine (Tegretol) 200 mg PO TID [facility]; Protocol Stop: 12/11/19 08:59 Last Admin: 10/21/19 17:26 Dose: 200 mg Docusate Sodium (Colace) 100 mg PO BID [facility] Stop: 12/11/19 08:59 Last Admin: 10/21/19 08:29 Dose: Not Given Fluphenazine HCl (Prolixin) 5 mg PO DAILY [facility]; Protocol Stop: 12/21/19 08:59 Glipizide (Glucotrol) 5 mg PO BID [facility] Stop: 12/11/19 08:59 Last Admin: 10/21/19 16:39 Dose: Not Given Lorazepam (Ativan) 0.5 mg PO Q4HR PRN; Protocol PRN Reason: Anxiety Stop: 12/18/19 13:07 Magnesium Hydroxide (Milk Of Magnesia) 30 ml PO HS PRN PRN Reason: Constipation Stop: 12/11/19 00:03 Metformin HCl (Glucophage) 1,000 mg PO BID [facility] Stop: 12/11/19 08:59 Last Admin: 10/21/19 16:38 Dose: 1,000 mg Multivitamins/Vitamin C (Theragran) 1 tab PO DAILY [facility] Stop: 12/11/19 08:59 Last Admin: 10/21/19 08:28 Dose: 1 tab Olanzapine (Zyprexa) 15 mg PO BID [facility] Stop: 12/16/19 16:59 Last Admin: 10/21/19 16:39 Dose: 15 mg Zolpidem Tartrate (Ambien) 5 mg PO HS PRN PRN Reason: Insomnia Stop: 12/18/19 11:16 Last Admin: 10/20/19 20:52 Dose: 5 mg General: alert, demented HEENT: NC/AT, PERRLA, EOMI, anicteric sclerae, throat clear Neck: Supple, No JVD, No thyromegaly, +2 carotid pulse wo bruit, No LAD Lungs: CTAB Cardiovascular: Normal S1, Normal S2, without murmur Abdomen: soft, non-tender, non-distended Extremities: clear Neurological: no change, gait stable Internal Medicine Assmt/Plan - Assessment Assessment: 1.DM. 2.HYPERLIPIDEMIA. 3.SEIZURE DISORDER 4.SCHIZO AFFECTIVE DISORDERS - Plan Plan: CONTINUE ON CURRENT MEDICATION AND DIET Nutritional Asmnt/Malnutr-PDOC - Dietary Evaluation Malnutrition Findings (Please click <Entered> for more info): Nutritional Asmnt/Malnutrition Start: 10/14/19 13: 27 Text: Status: Complete Freq: Protocol: Document 10/14/19 13:28 EDVIN (Rec: 10/14/19 13:35 EDVIN [id number]) Nutritional Asmnt/Malnutrition Patient General Information Nutritional Screening Moderate Risk Diagnosis Psychosis Pertinent Medical Hx/Surgical Hx Diabetes mellitus, seizure disorder, hyperlipidemia, schizoaffective disorder Subjective Information Pt is a 49-year-old female admitted on 10/10 d/t acting out, agitated, and delusional. Pt is eating an estimated 100 % of meals Per Meal/Nutrition Activity Record. Dietary is currently providing an estimated 2017 kcals and 120 gm Pro (x2 days), per Pt PO intake this is providing an estimated 2017 kcals and 120gm Pro to meet 100% kcal and 100 % Pro needs- adequate. Visited pt. after lunch, introduced myself, inquired how she was eating. Pt. stated she was eating just fine. Spoke to pt. about their high TG levels, pt. understood and stated they are watching their fat intake and reducing meat consumption. Recommendation to add a cardiac diet due hx of hyperlipidemia and labs TG 256 (10/10). Pt. nurse Catalina has placed the order to change diet per recommendation. Anthropometrics HT: 58 WT: 186 LB (84.55 kg) ABW: 151 LB (68.64) BMI: 28.28 (Overweight) GI/ Skin Integrity GI: WNL, Soft, Non-Tender BM: 10/11 x1 I/O: 240/Not Noted Skin: WNL, Intact Juan Carlos: 21 Diet Order: [facility] [place] Estimated Energy Needs: ( Geriatric, ABW) 4984-3679 kcals (25-30 kcals/ kg) 69-82g Pro (1.0-1.2 g/kg) 1700- 2000 ml (25-30 ml/kg) Current Diet Order/ Nutrition Support [facility] [place] Pertinent Medications Maalox (PRN), Lipitor, Tegretol, Colace, Glucotrol, MOM, Glucophage, Theragran Pertinent Labs 10/10: Glucose 122, TG 256, HDL 52, Na 124, Ca 8.1, Cl 91 Nutritional Hx/Data Height 1.73 m Height (Calculated Centimeters) 172.7 Current Weight (lbs) 84.368 kg Weight (Calculated Kilograms) 84.4 Weight (Calculated Grams) 96010.2 [place] Body Weight 140 % [place] Body Weight 107 Body Mass Index (BMI) 28.3 Weight Status Overweight GI Symptoms GI Symptoms None Last BM 10/11 Skin Integrity/Comment: Skin: WNL, Intact Juan Carlos: 21 Current %PO Good (75-100%) Estimated Nutritional Goals BEE in Kcals: Adj wt of IBW Calories/Kcals/Kg 25-30 Kcals Calculated 4691-8816 Protein: Adj wt of IBW Protein g/k.0-1.2 Protein Calculated 69-82 Fluid: ml 1700- 2000 ml (25-30 ml/kg) Nutritional Problem 1. Problem Problem Altered nutrition related labs Etiology labs r/t endocrine dysfunction and history of hyperlipidemia Signs/Symptoms: aeb recent laboratory values, Glucose 122, TG 256 Malnutrition Related to Morbid Obesity Malnutrition related to morbid obesity No Intervention/Recommendation Comments 1. Recommendation to add a cardiac diet to current diet rx. 2. Continue antihyperglycemic medications for glucose control per MD order. Expected Outcomes/Goals Expected Outcomes/Goals 1. PO intake to continue to meet >75% of estimated nutritional needs. 2.Monitor PO intake, wt, nutrition related labs, and skin integrity to trend WNL. 3. F/U as low risk in 7-10 days, 10/20-10/23
[2019-10-21] MEDS: Atorvastatin Calcium 10 MG TAB PO SCH (20:28)
[2019-10-21] MEDS: INSULIN LISPRO SLIDING SCALE 100 UNITS/ML UNIT SUBQ SCH (20:38)
[2019-10-22] MEDS: INSULIN LISPRO SLIDING SCALE 100 UNITS/ML UNIT SUBQ SCH ×4 (06:41→20:32)
[2019-10-22] MEDS: Multivitamin Tab PO SCH (09:52)
[2019-10-22] MEDS: Atorvastatin Calcium 10 MG TAB PO SCH (20:57)
--- NOTE | 2019-10-22 21:57 | Internal Medicine Prog Note ---
Internal Medicine Subjective - Subjective Service Date: 10/22/19 Patient seen and examined:: without staff (she feels better) Patient is:: awake, verbal, ambulating, talking, confused Per staff patient has:: no adverse event, eating well, confused, tolerating meds Internal Medicine Objective - Results Recent Labs: Laboratory Last Values POC Glucose 116 MG/DL (70 - 105) H 10/22/19 20:23 - Physical Exam Vitals and I&O: Vital Signs Temp 97 F 10/22/19 14:17 Pulse 117 10/22/19 14:17 Resp 20 10/22/19 14:17 BP 149/94 10/22/19 14:17 Pulse Ox 96 10/22/19 14:17 Intake & Output 10/22/19 10/22/19 10/23/19 06:59 18:59 06:59 Intake Total 360 240 Balance 360 240 Intake: Oral 360 240 Other: # Voids 2 3 1 # Bowel Movements 0 1 Stool Characteristics Formed Active Medications: Current Medications Acetaminophen (Tylenol) 650 mg PO Q4H PRN PRN Reason: Pain (Mild 1-3) Stop: 12/10/19 21:58 Last Admin: 10/20/19 16:41 Dose: 650 mg Acetaminophen (Tylenol) 650 mg PO Q4HR PRN PRN Reason: Temp above 100 Stop: 12/11/19 00:03 Al Hydrox/Mg Hydrox/Simethicone (Maalox) 30 ml PO Q4HR PRN PRN Reason: GI DISTRESS Stop: 12/11/19 00:03 Atorvastatin Calcium (Lipitor) 10 mg PO HS [facility]; Protocol Stop: 12/11/19 20:59 Last Admin: 10/22/19 20:57 Dose: 10 mg Carbamazepine (Tegretol) 200 mg PO TID [facility]; Protocol Stop: 12/11/19 08:59 Last Admin: 10/22/19 20:57 Dose: 200 mg Dextrose (Glutose 40%) 18.75 gm PO PRN PRN PRN Reason: Blood Glucose less than 70 Stop: 12/20/19 18:08 Docusate Sodium (Colace) 100 mg PO BID [facility] Stop: 12/11/19 08:59 Last Admin: 10/22/19 17:08 Dose: Not Given Fluphenazine HCl (Prolixin) 5 mg PO DAILY [facility]; Protocol Stop: 12/21/19 08:59 Last Admin: 10/22/19 09:51 Dose: 5 mg Glipizide (Glucotrol) 5 mg PO BID [facility] Stop: 12/11/19 08:59 Last Admin: 10/22/19 17:08 Dose: 5 mg Glucagon (Glucagen) 1 mg IM PRN PRN PRN Reason: Blood Glucose less than 70 Stop: 12/20/19 18:08 Insulin Human Lispro (Humalog Insulin Sliding Scale) 0 units SUBQ ACHS [facility]; Protocol Stop: 12/20/19 20:59 Last Admin: 10/22/19 20:32 Dose: Not Given Lorazepam (Ativan) 0.5 mg PO Q4HR PRN; Protocol PRN Reason: Anxiety Stop: 12/18/19 13:07 Magnesium Hydroxide (Milk Of Magnesia) 30 ml PO HS PRN PRN Reason: Constipation Stop: 12/11/19 00:03 Metformin HCl (Glucophage) 1,000 mg PO BID [facility] Stop: 12/11/19 08:59 Last Admin: 10/22/19 17:08 Dose: 1,000 mg Multivitamins/Vitamin C (Theragran) 1 tab PO DAILY [facility] Stop: 12/11/19 08:59 Last Admin: 10/22/19 09:52 Dose: 1 tab Olanzapine (Zyprexa) 15 mg PO BID [facility] Stop: 12/16/19 16:59 Last Admin: 10/22/19 17:09 Dose: 15 mg Zolpidem Tartrate (Ambien) 5 mg PO HS PRN PRN Reason: Insomnia Stop: 12/18/19 11:16 Last Admin: 10/20/19 20:52 Dose: 5 mg General: alert, demented HEENT: NC/AT, PERRLA, EOMI, anicteric sclerae, throat clear Neck: Supple, No JVD, No thyromegaly, +2 carotid pulse wo bruit, No LAD Lungs: CTAB Cardiovascular: Normal S1, Normal S2, without murmur Abdomen: soft, non-tender, non-distended Extremities: clear Neurological: no change, gait stable Internal Medicine Assmt/Plan - Assessment Assessment: 1.DM. 2.HYPERLIPIDEMIA. 3.SEIZURE DISORDER 4.SCHIZO AFFECTIVE DISORDERS - Plan Plan: CONTINUE ON CURRENT MEDICATION AND DIET Nutritional Asmnt/Malnutr-PDOC - Dietary Evaluation Malnutrition Findings (Please click <Entered> for more info): Nutritional Asmnt/Malnutrition Start: 10/14/19 13: 27 Text: Status: Complete Freq: Protocol: Document 10/14/19 13:28 EDVIN (Rec: 10/14/19 13:35 EDVIN [email or web address]) Nutritional Asmnt/Malnutrition Patient General Information Nutritional Screening Moderate Risk Diagnosis Psychosis Pertinent Medical Hx/Surgical Hx Diabetes mellitus, seizure disorder, hyperlipidemia, schizoaffective disorder Subjective Information Pt is a 49-year-old female admitted on 10/10 d/t acting out, agitated, and delusional. Pt is eating an estimated 100 % of meals Per Meal/Nutrition Activity Record. Dietary is currently providing an estimated 2017 kcals and 120 gm Pro (x2 days), per Pt PO intake this is providing an estimated 2017 kcals and 120gm Pro to meet 100% kcal and 100 % Pro needs- adequate. Visited pt. after lunch, introduced myself, inquired how she was eating. Pt. stated she was eating just fine. Spoke to pt. about their high TG levels, pt. understood and stated they are watching their fat intake and reducing meat consumption. Recommendation to add a cardiac diet due hx of hyperlipidemia and labs TG 256 (10/10). Pt. nurse Catalina has placed the order to change diet per recommendation. Anthropometrics HT: 58 WT: 186 LB (84.55 kg) ABW: 151 LB (68.64) BMI: 28.28 (Overweight) GI/ Skin Integrity GI: WNL, Soft, Non-Tender BM: 10/11 x1 I/O: 240/Not Noted Skin: WNL, Intact Juan Carlos: 21 Diet Order: [facility] Estimated Energy Needs: ( Geriatric, ABW) 6988-4512 kcals (25-30 kcals/ kg) 69-82g Pro (1.0-1.2 g/kg) 1700- 2000 ml (25-30 ml/kg) Current Diet Order/ Nutrition Support [facility] Pertinent Medications Maalox (PRN), Lipitor, Tegretol, Colace, Glucotrol, MOM, Glucophage, Theragran Pertinent Labs 10/10: Glucose 122, TG 256, HDL 52, Na 124, Ca 8.1, Cl 91 Nutritional Hx/Data Height 1.73 m Height (Calculated Centimeters) 172.7 Current Weight (lbs) 84.368 kg Weight (Calculated Kilograms) 84.4 Weight (Calculated Grams) 42349.2 [place] Body Weight 140 % [place] Body Weight 107 Body Mass Index (BMI) 28.3 Weight Status Overweight GI Symptoms GI Symptoms None Last BM 10/11 Skin Integrity/Comment: Skin: WNL, Intact Juan Carlos: 21 Current %PO Good (75-100%) Estimated Nutritional Goals BEE in Kcals: Adj wt of IBW Calories/Kcals/Kg 25-30 Kcals Calculated 8463-8569 Protein: Adj wt of IBW Protein g/k.0-1.2 Protein Calculated 69-82 Fluid: ml 1700- 2000 ml (25-30 ml/kg) Nutritional Problem 1. Problem Problem Altered nutrition related labs Etiology labs r/t endocrine dysfunction and history of hyperlipidemia Signs/Symptoms: aeb recent laboratory values, Glucose 122, TG 256 Malnutrition Related to Morbid Obesity Malnutrition related to morbid obesity No Intervention/Recommendation Comments 1. Recommendation to add a cardiac diet to current diet rx. 2. Continue antihyperglycemic medications for glucose control per MD order. Expected Outcomes/Goals Expected Outcomes/Goals 1. PO intake to continue to meet >75% of estimated nutritional needs. 2.Monitor PO intake, wt, nutrition related labs, and skin integrity to trend WNL. 3. F/U as low risk in 7-10 days, 10/20-10/23
--- NOTE | 2019-10-23 02:14 | Progress Notes ---
DATE: 10/22/2019 SUBJECTIVE: The patient was seen and evaluated. The patient's chart was reviewed. Covering for Dr. Sepulveda. Today on [id number] evaluation, the patient reports "I am 911, I am Abner." IDENTIFYING DATA: A 49-year-old female brought in here from [facility], delusional, believing that everyone is against her. HOSPITAL COURSE: Reconciliation reviewed. Tegretol, Prolixin, metformin, Zyprexa. ASSESSMENT AND PLAN: The patient continues to be paranoid, incoherent statements about 911 and she is Abner. We will continue with primary psychiatric treatment plan and goals. Her Zyprexa is currently being augmented with Prolixin. No EPS. No tardive dyskinesia symptoms endorsed. JOB# [id number]
[2019-10-23] MEDS: INSULIN LISPRO SLIDING SCALE 100 UNITS/ML UNIT SUBQ SCH ×4 (06:54→21:30)
[2019-10-23] MEDS: Multivitamin Tab PO SCH (08:35)
--- NOTE | 2019-10-23 18:03 | Progress Notes ---
DATE: 10/23/2019 Covering for ____. SUBJECTIVE: Today on [id number] evaluation, the patient reported that she continues to be she is "Wendell." MENTAL STATUS EXAMINATION: Disorganized. She believes that she is Abner. ASSESSMENT AND PLAN: Paranoid, incoherent statements. No complications and side effects noted by the patient. JOB# [id number]
[2019-10-23] MEDS: Atorvastatin Calcium 10 MG TAB PO SCH (20:36)
--- NOTE | 2019-10-23 21:53 | Internal Medicine Prog Note ---
Internal Medicine Subjective - Subjective Service Date: 10/23/19 Patient seen and examined:: without staff (SHE FEELS WELL) Patient is:: awake, verbal, ambulating, talking, confused Per staff patient has:: no adverse event, eating well, confused, tolerating meds Internal Medicine Objective - Results Recent Labs: Laboratory Last Values POC Glucose 155 MG/DL (70 - 105) H 10/23/19 20:09 - Physical Exam Vitals and I&O: Vital Signs Temp 97.7 F 10/23/19 20:00 Pulse 81 10/23/19 20:00 Resp 19 10/23/19 20:00 BP 125/83 10/23/19 20:00 Pulse Ox 97 10/23/19 20:00 Intake & Output 10/23/19 10/23/19 10/24/19 06:59 18:59 06:59 Intake Total 300 1200 Balance 300 1200 Intake: Oral 300 1200 Other: # Voids 2 4 # Bowel Movements 0 1 Stool Characteristics Soft Formed Brown Active Medications: Current Medications Acetaminophen (Tylenol) 650 mg PO Q4H PRN PRN Reason: Pain (Mild 1-3) Stop: 12/10/19 21:58 Last Admin: 10/20/19 16:41 Dose: 650 mg Acetaminophen (Tylenol) 650 mg PO Q4HR PRN PRN Reason: Temp above 100 Stop: 12/11/19 00:03 Al Hydrox/Mg Hydrox/Simethicone (Maalox) 30 ml PO Q4HR PRN PRN Reason: GI DISTRESS Stop: 12/11/19 00:03 Atorvastatin Calcium (Lipitor) 10 mg PO HS [facility]; Protocol Stop: 12/11/19 20:59 Last Admin: 10/23/19 20:36 Dose: 10 mg Carbamazepine (Tegretol) 200 mg PO TID [facility]; Protocol Stop: 12/11/19 08:59 Last Admin: 10/23/19 20:36 Dose: 200 mg Dextrose (Glutose 40%) 18.75 gm PO PRN PRN PRN Reason: Blood Glucose less than 70 Stop: 12/20/19 18:08 Docusate Sodium (Colace) 100 mg PO BID [facility] Stop: 12/11/19 08:59 Last Admin: 10/23/19 17:24 Dose: Not Given Fluphenazine HCl (Prolixin) 5 mg PO DAILY [facility]; Protocol Stop: 12/21/19 08:59 Last Admin: 10/23/19 08:34 Dose: 5 mg Glipizide (Glucotrol) 5 mg PO BID [facility] Stop: 12/11/19 08:59 Last Admin: 10/23/19 17:26 Dose: 5 mg Glucagon (Glucagen) 1 mg IM PRN PRN PRN Reason: Blood Glucose less than 70 Stop: 12/20/19 18:08 Insulin Human Lispro (Humalog Insulin Sliding Scale) 0 units SUBQ ACHS [facility]; Protocol Stop: 12/20/19 20:59 Last Admin: 10/23/19 17:27 Dose: 2 units Lorazepam (Ativan) 0.5 mg PO Q4HR PRN; Protocol PRN Reason: Anxiety Stop: 12/18/19 13:07 Last Admin: 10/23/19 20:36 Dose: 0.5 mg Magnesium Hydroxide (Milk Of Magnesia) 30 ml PO HS PRN PRN Reason: Constipation Stop: 12/11/19 00:03 Metformin HCl (Glucophage) 1,000 mg PO BID [facility] Stop: 12/11/19 08:59 Last Admin: 10/23/19 17:26 Dose: 1,000 mg Multivitamins/Vitamin C (Theragran) 1 tab PO DAILY [facility] Stop: 12/11/19 08:59 Last Admin: 10/23/19 08:35 Dose: 1 tab Olanzapine (Zyprexa) 15 mg PO BID [facility] Stop: 12/16/19 16:59 Last Admin: 10/23/19 17:27 Dose: 15 mg Zolpidem Tartrate (Ambien) 5 mg PO HS PRN PRN Reason: Insomnia Stop: 12/18/19 11:16 Last Admin: 10/20/19 20:52 Dose: 5 mg General: alert, demented HEENT: NC/AT, PERRLA, EOMI, anicteric sclerae, throat clear Neck: Supple, No JVD, No thyromegaly, +2 carotid pulse wo bruit, No LAD Lungs: CTAB Cardiovascular: Normal S1, Normal S2, without murmur Abdomen: soft, non-tender, non-distended Extremities: clear Neurological: no change, gait stable Internal Medicine Assmt/Plan - Assessment Assessment: 1.DM. 2.HYPERLIPIDEMIA. 3.SEIZURE DISORDER 4.SCHIZO AFFECTIVE DISORDERS - Plan Plan: CONTINUE ON CURRENT MEDICATION AND DIET Nutritional Asmnt/Malnutr-PDOC - Dietary Evaluation Malnutrition Findings (Please click <Entered> for more info): Nutritional Asmnt/Malnutrition Start: 10/14/19 13: 27 Text: Status: Complete Freq: Protocol: Document 10/14/19 13:28 EDVIN (Rec: 10/14/19 13:35 EDVIN [email or web address]) Nutritional Asmnt/Malnutrition Patient General Information Nutritional Screening Moderate Risk Diagnosis Psychosis Pertinent Medical Hx/Surgical Hx Diabetes mellitus, seizure disorder, hyperlipidemia, schizoaffective disorder Subjective Information Pt is a 49-year-old female admitted on 10/10 d/t acting out, agitated, and delusional. Pt is eating an estimated 100 % of meals Per Meal/Nutrition Activity Record. Dietary is currently providing an estimated 2017 kcals and 120 gm Pro (x2 days), per Pt PO intake this is providing an estimated 2017 kcals and 120gm Pro to meet 100% kcal and 100 % Pro needs- adequate. Visited pt. after lunch, introduced myself, inquired how she was eating. Pt. stated she was eating just fine. Spoke to pt. about their high TG levels, pt. understood and stated they are watching their fat intake and reducing meat consumption. Recommendation to add a cardiac diet due hx of hyperlipidemia and labs TG 256 (10/10). Pt. nurse Catalina has placed the order to change diet per recommendation. Anthropometrics HT: 58 WT: 186 LB (84.55 kg) ABW: 151 LB (68.64) BMI: 28.28 (Overweight) GI/ Skin Integrity GI: WNL, Soft, Non-Tender BM: 10/11 x1 I/O: 240/Not Noted Skin: WNL, Intact Juan Carlos: 21 Diet Order: [facility] Estimated Energy Needs: ( Geriatric, ABW) 1443-8554 kcals (25-30 kcals/ kg) 69-82g Pro (1.0-1.2 g/kg) 1700- 2000 ml (25-30 ml/kg) Current Diet Order/ Nutrition Support [facility] Pertinent Medications Maalox (PRN), Lipitor, Tegretol, Colace, Glucotrol, MOM, Glucophage, Theragran Pertinent Labs 10/10: Glucose 122, TG 256, HDL 52, Na 124, Ca 8.1, Cl 91 Nutritional Hx/Data Height 1.73 m Height (Calculated Centimeters) 172.7 Current Weight (lbs) 84.368 kg Weight (Calculated Kilograms) 84.4 Weight (Calculated Grams) 27564.2 [place] Body Weight 140 % [place] Body Weight 107 Body Mass Index (BMI) 28.3 Weight Status Overweight GI Symptoms GI Symptoms None Last BM 10/11 Skin Integrity/Comment: Skin: WNL, Intact Juan Carlos: 21 Current %PO Good (75-100%) Estimated Nutritional Goals BEE in Kcals: Adj wt of IBW Calories/Kcals/Kg 25-30 Kcals Calculated 3182-4648 Protein: Adj wt of IBW Protein g/k.0-1.2 Protein Calculated 69-82 Fluid: ml 1700- 2000 ml (25-30 ml/kg) Nutritional Problem 1. Problem Problem Altered nutrition related labs Etiology labs r/t endocrine dysfunction and history of hyperlipidemia Signs/Symptoms: aeb recent laboratory values, Glucose 122, TG 256 Malnutrition Related to Morbid Obesity Malnutrition related to morbid obesity No Intervention/Recommendation Comments 1. Recommendation to add a cardiac diet to current diet rx. 2. Continue antihyperglycemic medications for glucose control per MD order. Expected Outcomes/Goals Expected Outcomes/Goals 1. PO intake to continue to meet >75% of estimated nutritional needs. 2.Monitor PO intake, wt, nutrition related labs, and skin integrity to trend WNL. 3. F/U as low risk in 7-10 days, 10/20-10/23
[2019-10-24] MEDS: INSULIN LISPRO SLIDING SCALE 100 UNITS/ML UNIT SUBQ SCH ×4 (06:31→20:47)
[2019-10-24] MEDS: Multivitamin Tab PO SCH (08:26)
--- NOTE | 2019-10-24 18:40 | Internal Medicine Prog Note ---
Internal Medicine Subjective - Subjective Service Date: 10/24/19 Patient seen and examined:: without staff (SHE FEELS WELL) Patient is:: awake, verbal, ambulating, talking, confused Per staff patient has:: no adverse event, eating well, confused, tolerating meds Internal Medicine Objective - Results Recent Labs: Laboratory Last Values POC Glucose 119 MG/DL (70 - 105) H 10/24/19 16:29 - Physical Exam Vitals and I&O: Vital Signs Temp 97.7 F 10/24/19 14:00 Pulse 94 10/24/19 14:00 Resp 18 10/24/19 14:00 BP 139/84 10/24/19 14:00 Pulse Ox 96 10/24/19 14:00 Intake & Output 10/23/19 10/24/19 10/24/19 18:59 06:59 18:59 Intake Total 2484 103 5711 Balance 7720 048 2706 Intake: Oral 2313 507 8484 Other: # Voids 4 2 4 # Bowel Movements 1 0 1 Stool Characteristics Soft Soft Formed Formed Brown Brown Active Medications: Current Medications Acetaminophen (Tylenol) 650 mg PO Q4H PRN PRN Reason: Pain (Mild 1-3) Stop: 12/10/19 21:58 Last Admin: 10/24/19 16:06 Dose: 650 mg Acetaminophen (Tylenol) 650 mg PO Q4HR PRN PRN Reason: Temp above 100 Stop: 12/11/19 00:03 Al Hydrox/Mg Hydrox/Simethicone (Maalox) 30 ml PO Q4HR PRN PRN Reason: GI DISTRESS Stop: 12/11/19 00:03 Atorvastatin Calcium (Lipitor) 10 mg PO HS [facility]; Protocol Stop: 12/11/19 20:59 Last Admin: 10/23/19 20:36 Dose: 10 mg Carbamazepine (Tegretol) 200 mg PO TID [facility]; Protocol Stop: 12/11/19 08:59 Last Admin: 10/24/19 14:57 Dose: Not Given Dextrose (Glutose 40%) 18.75 gm PO PRN PRN PRN Reason: Blood Glucose less than 70 Stop: 12/20/19 18:08 Docusate Sodium (Colace) 100 mg PO BID [facility] Stop: 12/11/19 08:59 Last Admin: 10/24/19 17:34 Dose: Not Given Fluphenazine HCl (Prolixin) 10 mg PO DAILY [facility]; Protocol Stop: 12/24/19 08:59 Glipizide (Glucotrol) 5 mg PO BID [facility] Stop: 12/11/19 08:59 Last Admin: 10/24/19 17:07 Dose: 5 mg Glucagon (Glucagen) 1 mg IM PRN PRN PRN Reason: Blood Glucose less than 70 Stop: 12/20/19 18:08 Insulin Human Lispro (Humalog Insulin Sliding Scale) 0 units SUBQ ACHS [facility]; Protocol Stop: 12/20/19 20:59 Last Admin: 10/24/19 17:07 Dose: Not Given Lorazepam (Ativan) 0.5 mg PO Q4HR PRN; Protocol PRN Reason: Anxiety Stop: 12/18/19 13:07 Last Admin: 10/23/19 20:36 Dose: 0.5 mg Magnesium Hydroxide (Milk Of Magnesia) 30 ml PO HS PRN PRN Reason: Constipation Stop: 12/11/19 00:03 Metformin HCl (Glucophage) 1,000 mg PO BID [facility] Stop: 12/11/19 08:59 Last Admin: 10/24/19 17:07 Dose: 1,000 mg Multivitamins/Vitamin C (Theragran) 1 tab PO DAILY [facility] Stop: 12/11/19 08:59 Last Admin: 10/24/19 08:26 Dose: 1 tab Olanzapine (Zyprexa) 15 mg PO BID [facility] Stop: 12/16/19 16:59 Last Admin: 10/24/19 17:07 Dose: 15 mg Zolpidem Tartrate (Ambien) 5 mg PO HS PRN PRN Reason: Insomnia Stop: 12/18/19 11:16 Last Admin: 10/23/19 21:30 Dose: 5 mg General: alert, demented HEENT: NC/AT, PERRLA, EOMI, anicteric sclerae, throat clear Neck: Supple, No JVD, No thyromegaly, +2 carotid pulse wo bruit, No LAD Lungs: CTAB Cardiovascular: Normal S1, Normal S2, without murmur Abdomen: soft, non-tender, non-distended Extremities: clear Neurological: no change, gait stable Internal Medicine Assmt/Plan - Assessment Assessment: 1.DM. 2.HYPERLIPIDEMIA. 3.SEIZURE DISORDER 4.SCHIZO AFFECTIVE DISORDERS - Plan Plan: CONTINUE ON CURRENT MEDICATION AND DIET Nutritional Asmnt/Malnutr-PDOC - Dietary Evaluation Malnutrition Findings (Please click <Entered> for more info): Nutritional Asmnt/Malnutrition Start: 10/14/19 13: 27 Text: Status: Complete Freq: Protocol: Document 10/14/19 13:28 EDVIN (Rec: 10/14/19 13:35 EDVIN [email or web address]) Nutritional Asmnt/Malnutrition Patient General Information Nutritional Screening Moderate Risk Diagnosis Psychosis Pertinent Medical Hx/Surgical Hx Diabetes mellitus, seizure disorder, hyperlipidemia, schizoaffective disorder Subjective Information Pt is a 49-year-old female admitted on 10/10 d/t acting out, agitated, and delusional. Pt is eating an estimated 100 % of meals Per Meal/Nutrition Activity Record. Dietary is currently providing an estimated 2017 kcals and 120 gm Pro (x2 days), per Pt PO intake this is providing an estimated 2017 kcals and 120gm Pro to meet 100% kcal and 100 % Pro needs- adequate. Visited pt. after lunch, introduced myself, inquired how she was eating. Pt. stated she was eating just fine. Spoke to pt. about their high TG levels, pt. understood and stated they are watching their fat intake and reducing meat consumption. Recommendation to add a cardiac diet due hx of hyperlipidemia and labs TG 256 (10/10). Pt. nurse Catalina has placed the order to change diet per recommendation. Anthropometrics HT: 58 WT: 186 LB (84.55 kg) ABW: 151 LB (68.64) BMI: 28.28 (Overweight) GI/ Skin Integrity GI: WNL, Soft, Non-Tender BM: 10/11 x1 I/O: 240/Not Noted Skin: WNL, Intact Juan Carlos: 21 Diet Order: [facility] Estimated Energy Needs: ( Geriatric, ABW) 8559-2169 kcals (25-30 kcals/ kg) 69-82g Pro (1.0-1.2 g/kg) 1700- 2000 ml (25-30 ml/kg) Current Diet Order/ Nutrition Support [facility] Pertinent Medications Maalox (PRN), Lipitor, Tegretol, Colace, Glucotrol, MOM, Glucophage, Theragran Pertinent Labs 10/10: Glucose 122, TG 256, HDL 52, Na 124, Ca 8.1, Cl 91 Nutritional Hx/Data Height 1.73 m Height (Calculated Centimeters) 172.7 Current Weight (lbs) 84.368 kg Weight (Calculated Kilograms) 84.4 Weight (Calculated Grams) 50943.2 [place] Body Weight 140 % [place] Body Weight 107 Body Mass Index (BMI) 28.3 Weight Status Overweight GI Symptoms GI Symptoms None Last BM 10/11 Skin Integrity/Comment: Skin: WNL, Intact Juan Carlos: 21 Current %PO Good (75-100%) Estimated Nutritional Goals BEE in Kcals: Adj wt of IBW Calories/Kcals/Kg 25-30 Kcals Calculated 5516-7074 Protein: Adj wt of IBW Protein g/k.0-1.2 Protein Calculated 69-82 Fluid: ml 1700- 2000 ml (25-30 ml/kg) Nutritional Problem 1. Problem Problem Altered nutrition related labs Etiology labs r/t endocrine dysfunction and history of hyperlipidemia Signs/Symptoms: aeb recent laboratory values, Glucose 122, TG 256 Malnutrition Related to Morbid Obesity Malnutrition related to morbid obesity No Intervention/Recommendation Comments 1. Recommendation to add a cardiac diet to current diet rx. 2. Continue antihyperglycemic medications for glucose control per MD order. Expected Outcomes/Goals Expected Outcomes/Goals 1. PO intake to continue to meet >75% of estimated nutritional needs. 2.Monitor PO intake, wt, nutrition related labs, and skin integrity to trend WNL. 3. F/U as low risk in 7-10 days, 10/20-10/23
--- NOTE | 2019-10-24 20:40 | Progress Notes ---
DATE: 10/24/2019 Case was discussed with staff of the patient, reviewed records. The patient continues to be delusional, disorganized. She believes she is in [facility]. She is paranoid. Refused to take some medications sometimes. She is sleeping better, eating better. No side effects with the medication. No sedation, no nausea, no extrapyramidal symptoms. refuses Tegretol. I did increase Fluphenazine 5 mg daily. Also I increased olanzapine to 50 mg twice a day. I will be increasing the Fluphenazine to 10 mg a day to help improve her psychotic symptoms. No side effects with the medication. No sedation, no nausea, no extrapyramidal symptoms. We will continue outpatient group therapy, milieu therapy, adjust medication as needed. JOB# [id number] MTDD
[2019-10-24] MEDS: Atorvastatin Calcium 10 MG TAB PO SCH (20:47)
[2019-10-25] MEDS: INSULIN LISPRO SLIDING SCALE 100 UNITS/ML UNIT SUBQ SCH ×4 (06:49→20:35)
[2019-10-25] MEDS: Multivitamin Tab PO SCH (09:09)
--- NOTE | 2019-10-25 15:17 | Progress Notes ---
DATE: 10/25/2019 Case was discussed with staff of the patient, reviewed records. The patient continues to refuse Tegretol, but she is taking the rest of her medication. I did increase her perphenazine yesterday. She is sleeping well, eating well. No side effects with the medication, no sedation, no nausea, no extrapyramidal symptoms. She continues to have poor insight in general. We will continue outpatient group therapy, milieu therapy, and adjust the medications as needed. JOB# [id number]
--- NOTE | 2019-10-25 20:25 | Internal Medicine Prog Note ---
Internal Medicine Subjective - Subjective Service Date: 10/25/19 Patient seen and examined:: without staff (SHE IS FEELING WELL) Patient is:: awake, verbal, ambulating, talking, confused Per staff patient has:: no adverse event, eating well, confused, tolerating meds Internal Medicine Objective - Results Recent Labs: Laboratory Last Values POC Glucose 178 MG/DL (70 - 105) H 10/25/19 19:33 - Physical Exam Vitals and I&O: Vital Signs Temp 0 F 10/25/19 20:13 Pulse 94 10/25/19 14:00 Resp 20 10/25/19 14:00 BP 137/80 10/25/19 14:00 Pulse Ox 97 10/25/19 14:00 Intake & Output 10/25/19 10/25/19 10/26/19 06:59 18:59 06:59 Intake Total 480 1000 120 Balance 480 1000 120 Intake: Oral 480 1000 120 Other: # Voids 1 4 3 # Bowel Movements 1 0 Stool Characteristics Soft Soft Formed Formed Brown Brown Active Medications: Current Medications Acetaminophen (Tylenol) 650 mg PO Q4H PRN PRN Reason: Pain (Mild 1-3) Stop: 12/10/19 21:58 Last Admin: 10/24/19 16:06 Dose: 650 mg Acetaminophen (Tylenol) 650 mg PO Q4HR PRN PRN Reason: Temp above 100 Stop: 12/11/19 00:03 Al Hydrox/Mg Hydrox/Simethicone (Maalox) 30 ml PO Q4HR PRN PRN Reason: GI DISTRESS Stop: 12/11/19 00:03 Atorvastatin Calcium (Lipitor) 10 mg PO HS [facility]; Protocol Stop: 12/11/19 20:59 Last Admin: 10/24/19 20:47 Dose: 10 mg Carbamazepine (Tegretol) 200 mg PO TID [facility]; Protocol Stop: 12/11/19 08:59 Last Admin: 10/25/19 14:34 Dose: Not Given Dextrose (Glutose 40%) 18.75 gm PO PRN PRN PRN Reason: Blood Glucose less than 70 Stop: 12/20/19 18:08 Docusate Sodium (Colace) 100 mg PO BID [facility] Stop: 12/11/19 08:59 Last Admin: 10/25/19 17:02 Dose: Not Given Fluphenazine HCl (Prolixin) 10 mg PO DAILY [facility]; Protocol Stop: 12/24/19 08:59 Last Admin: 10/25/19 09:08 Dose: 10 mg Glipizide (Glucotrol) 5 mg PO BID [facility] Stop: 12/11/19 08:59 Last Admin: 10/25/19 16:49 Dose: 5 mg Glucagon (Glucagen) 1 mg IM PRN PRN PRN Reason: Blood Glucose less than 70 Stop: 12/20/19 18:08 Insulin Human Lispro (Humalog Insulin Sliding Scale) 0 units SUBQ ACHS [facility]; Protocol Stop: 12/20/19 20:59 Last Admin: 10/25/19 16:49 Dose: 2 units Lorazepam (Ativan) 0.5 mg PO Q4HR PRN; Protocol PRN Reason: Anxiety Stop: 12/18/19 13:07 Last Admin: 10/23/19 20:36 Dose: 0.5 mg Magnesium Hydroxide (Milk Of Magnesia) 30 ml PO HS PRN PRN Reason: Constipation Stop: 12/11/19 00:03 Metformin HCl (Glucophage) 1,000 mg PO BID [facility] Stop: 12/11/19 08:59 Last Admin: 10/25/19 16:48 Dose: 1,000 mg Multivitamins/Vitamin C (Theragran) 1 tab PO DAILY [facility] Stop: 12/11/19 08:59 Last Admin: 10/25/19 09:09 Dose: 1 tab Olanzapine (Zyprexa) 15 mg PO BID [facility] Stop: 12/16/19 16:59 Last Admin: 10/25/19 16:49 Dose: 15 mg Zolpidem Tartrate (Ambien) 5 mg PO HS PRN PRN Reason: Insomnia Stop: 12/18/19 11:16 Last Admin: 10/24/19 20:47 Dose: 5 mg General: alert, demented HEENT: NC/AT, PERRLA, EOMI, anicteric sclerae, throat clear Neck: Supple, No JVD, No thyromegaly, +2 carotid pulse wo bruit, No LAD Lungs: CTAB Cardiovascular: Normal S1, Normal S2, without murmur Abdomen: soft, non-tender, non-distended Extremities: clear Neurological: no change, gait stable Internal Medicine Assmt/Plan - Assessment Assessment: 1.DM. 2.HYPERLIPIDEMIA. 3.SEIZURE DISORDER 4.SCHIZO AFFECTIVE DISORDERS - Plan Plan: CONTINUE ON CURRENT MEDICATION AND DIET Nutritional Asmnt/Malnutr-PDOC - Dietary Evaluation Malnutrition Findings (Please click <Entered> for more info): Nutritional Asmnt/Malnutrition Start: 10/14/19 13: 27 Text: Status: Complete Freq: Protocol: Document 10/14/19 13:28 EDVIN (Rec: 10/14/19 13:35 EDVIN [email or web address]) Nutritional Asmnt/Malnutrition Patient General Information Nutritional Screening Moderate Risk Diagnosis Psychosis Pertinent Medical Hx/Surgical Hx Diabetes mellitus, seizure disorder, hyperlipidemia, schizoaffective disorder Subjective Information Pt is a 49-year-old female admitted on 10/10 d/t acting out, agitated, and delusional. Pt is eating an estimated 100 % of meals Per Meal/Nutrition Activity Record. Dietary is currently providing an estimated 2017 kcals and 120 gm Pro (x2 days), per Pt PO intake this is providing an estimated 2017 kcals and 120gm Pro to meet 100% kcal and 100 % Pro needs- adequate. Visited pt. after lunch, introduced myself, inquired how she was eating. Pt. stated she was eating just fine. Spoke to pt. about their high TG levels, pt. understood and stated they are watching their fat intake and reducing meat consumption. Recommendation to add a cardiac diet due hx of hyperlipidemia and labs TG 256 (10/10). Pt. nurse Catalina has placed the order to change diet per recommendation. Anthropometrics HT: 58 WT: 186 LB (84.55 kg) ABW: 151 LB (68.64) BMI: 28.28 (Overweight) GI/ Skin Integrity GI: WNL, Soft, Non-Tender BM: 10/11 x1 I/O: 240/Not Noted Skin: WNL, Intact Juan Carlos: 21 Diet Order: [facility] Estimated Energy Needs: ( Geriatric, ABW) 8519-5338 kcals (25-30 kcals/ kg) 69-82g Pro (1.0-1.2 g/kg) 1700- 2000 ml (25-30 ml/kg) Current Diet Order/ Nutrition Support [facility] Pertinent Medications Maalox (PRN), Lipitor, Tegretol, Colace, Glucotrol, MOM, Glucophage, Theragran Pertinent Labs 10/10: Glucose 122, TG 256, HDL 52, Na 124, Ca 8.1, Cl 91 Nutritional Hx/Data Height 1.73 m Height (Calculated Centimeters) 172.7 Current Weight (lbs) 84.368 kg Weight (Calculated Kilograms) 84.4 Weight (Calculated Grams) 45947.2 [place] Body Weight 140 % [place] Body Weight 107 Body Mass Index (BMI) 28.3 Weight Status Overweight GI Symptoms GI Symptoms None Last BM 10/11 Skin Integrity/Comment: Skin: WNL, Intact Juan Carlos: 21 Current %PO Good (75-100%) Estimated Nutritional Goals BEE in Kcals: Adj wt of IBW Calories/Kcals/Kg 25-30 Kcals Calculated 2158-7168 Protein: Adj wt of IBW Protein g/k.0-1.2 Protein Calculated 69-82 Fluid: ml 1700- 2000 ml (25-30 ml/kg) Nutritional Problem 1. Problem Problem Altered nutrition related labs Etiology labs r/t endocrine dysfunction and history of hyperlipidemia Signs/Symptoms: aeb recent laboratory values, Glucose 122, TG 256 Malnutrition Related to Morbid Obesity Malnutrition related to morbid obesity No Intervention/Recommendation Comments 1. Recommendation to add a cardiac diet to current diet rx. 2. Continue antihyperglycemic medications for glucose control per MD order. Expected Outcomes/Goals Expected Outcomes/Goals 1. PO intake to continue to meet >75% of estimated nutritional needs. 2.Monitor PO intake, wt, nutrition related labs, and skin integrity to trend WNL. 3. F/U as low risk in 7-10 days, 10/20-10/23
[2019-10-25] MEDS: Atorvastatin Calcium 10 MG TAB PO SCH (20:52)
[2019-10-26] MEDS: INSULIN LISPRO SLIDING SCALE 100 UNITS/ML UNIT SUBQ SCH ×4 (07:08→20:36)
[2019-10-26] MEDS: Multivitamin Tab PO SCH (08:32)
--- NOTE | 2019-10-26 14:10 | Progress Notes ---
DATE: 10/26/2019 Case was discussed with staff of the patient, reviewed records. The patient continues to be unpredictable, impulsive, refusing Tegretol, but she says she is less agitated, less shaky, does not want to take it. I did increase her fluphenazine to 10 mg daily. She is also on Zyprexa 15 mg twice a day with no side effects, no sedation, no nausea, no extrapyramidal symptoms. She reports that she wants to go to a board and care; however, the patient originally came from [place] and she has a conservator. We will continue outpatient group therapy, milieu therapy, adjust medication as needed. JOB# [id number]
[2019-10-26] MEDS: Atorvastatin Calcium 10 MG TAB PO SCH (20:36)
[2019-10-27] MEDS: INSULIN LISPRO SLIDING SCALE 100 UNITS/ML UNIT SUBQ SCH ×4 (06:33→21:32)
[2019-10-27] MEDS: Multivitamin Tab PO SCH (08:48)
--- NOTE | 2019-10-27 11:47 | Progress Notes ---
DATE: 10/27/2019 Case was discussed with staff of the patient, reviewed records. The patient continues to be irrational, unpredictable, impulsive, refusing to take Tegretol or carbamazepine. She reports she be on it. She tolerated increase in fluphenazine with no side effects, also on Zyprexa 15 mg twice a day with no side effects, no sedation, no nausea, no extrapyramidal symptoms. I will be increasing her fluphenazine to 17.5 mg twice a day, so far no side effects with the medication, no sedation, no nausea, no extrapyramidal symptoms. We will continue outpatient group therapy, milieu therapy, and adjust medications as needed. JOB# [id number]
--- NOTE | 2019-10-27 14:43 | Internal Medicine Prog Note ---
Internal Medicine Subjective - Subjective Service Date: 10/26/19 Patient seen and examined:: without staff (SHE FEELS WELL) Patient is:: awake, verbal, ambulating, talking, confused Per staff patient has:: no adverse event, eating well, confused, tolerating meds Internal Medicine Objective - Results Recent Labs: Laboratory Last Values POC Glucose 104 MG/DL (70 - 105) 10/27/19 11:56 - Physical Exam Vitals and I&O: Vital Signs Temp 97.6 F 10/26/19 20:10 Pulse 90 10/26/19 20:10 Resp 20 10/26/19 20:10 BP 101/50 10/26/19 20:10 Pulse Ox 97 10/26/19 20:10 Intake & Output 10/26/19 10/27/19 10/27/19 18:59 06:59 18:59 Intake Total 1050 240 Balance 1050 240 Intake: Oral 1050 240 Other: # Voids 2 # Bowel Movements 1 Stool Characteristics Soft Formed Brown Active Medications: Current Medications Acetaminophen (Tylenol) 650 mg PO Q4H PRN PRN Reason: Pain (Mild 1-3) Stop: 12/10/19 21:58 Last Admin: 10/26/19 14:29 Dose: 650 mg Acetaminophen (Tylenol) 650 mg PO Q4HR PRN PRN Reason: Temp above 100 Stop: 12/11/19 00:03 Al Hydrox/Mg Hydrox/Simethicone (Maalox) 30 ml PO Q4HR PRN PRN Reason: GI DISTRESS Stop: 12/11/19 00:03 Atorvastatin Calcium (Lipitor) 10 mg PO HS [facility]; Protocol Stop: 12/11/19 20:59 Last Admin: 10/26/19 20:36 Dose: 10 mg Carbamazepine (Tegretol) 200 mg PO TID [facility]; Protocol Stop: 12/11/19 08:59 Last Admin: 10/27/19 08:34 Dose: 200 mg Dextrose (Glutose 40%) 18.75 gm PO PRN PRN PRN Reason: Blood Glucose less than 70 Stop: 12/20/19 18:08 Docusate Sodium (Colace) 100 mg PO BID [facility] Stop: 12/11/19 08:59 Last Admin: 10/27/19 08:34 Dose: Not Given Fluphenazine HCl (Prolixin) 10 mg PO DAILY [facility]; Protocol Stop: 12/24/19 08:59 Last Admin: 10/27/19 08:33 Dose: 10 mg Glipizide (Glucotrol) 5 mg PO BID [facility] Stop: 12/11/19 08:59 Last Admin: 10/27/19 08:34 Dose: 5 mg Glucagon (Glucagen) 1 mg IM PRN PRN PRN Reason: Blood Glucose less than 70 Stop: 12/20/19 18:08 Insulin Human Lispro (Humalog Insulin Sliding Scale) 0 units SUBQ ACHS [facility]; Protocol Stop: 12/20/19 20:59 Last Admin: 10/27/19 06:33 Dose: 2 units Lorazepam (Ativan) 0.5 mg PO Q4HR PRN; Protocol PRN Reason: Anxiety Stop: 12/18/19 13:07 Last Admin: 10/23/19 20:36 Dose: 0.5 mg Magnesium Hydroxide (Milk Of Magnesia) 30 ml PO HS PRN PRN Reason: Constipation Stop: 12/11/19 00:03 Metformin HCl (Glucophage) 1,000 mg PO BID [facility] Stop: 12/11/19 08:59 Last Admin: 10/27/19 08:34 Dose: 1,000 mg Multivitamins/Vitamin C (Theragran) 1 tab PO DAILY [facility] Stop: 12/11/19 08:59 Last Admin: 10/27/19 08:48 Dose: 1 tab Olanzapine 15 mg/ Olanzapine 2 (.5 mg) 17.5 mg PO BID [facility] Stop: 12/26/19 16:59 Zolpidem Tartrate (Ambien) 5 mg PO HS PRN PRN Reason: Insomnia Stop: 12/18/19 11:16 Last Admin: 10/25/19 20:52 Dose: 5 mg General: alert, demented HEENT: NC/AT, PERRLA, EOMI, anicteric sclerae, throat clear Neck: Supple, No JVD, No thyromegaly, +2 carotid pulse wo bruit, No LAD Lungs: CTAB Cardiovascular: Normal S1, Normal S2, without murmur Abdomen: soft, non-tender, non-distended Extremities: clear Neurological: no change, gait stable Internal Medicine Assmt/Plan - Assessment Assessment: 1.DM. 2.HYPERLIPIDEMIA. 3.SEIZURE DISORDER 4.SCHIZO AFFECTIVE DISORDERS - Plan Plan: CONTINUE ON CURRENT MEDICATION AND DIET Nutritional Asmnt/Malnutr-PDOC - Dietary Evaluation Malnutrition Findings (Please click <Entered> for more info): Nutritional Asmnt/Malnutrition Start: 10/14/19 13: 27 Text: Status: Complete Freq: Protocol: Document 10/14/19 13:28 EDVIN (Rec: 10/14/19 13:35 EDVIN [id number]) Nutritional Asmnt/Malnutrition Patient General Information Nutritional Screening Moderate Risk Diagnosis Psychosis Pertinent Medical Hx/Surgical Hx Diabetes mellitus, seizure disorder, hyperlipidemia, schizoaffective disorder Subjective Information Pt is a 49-year-old female admitted on 10/10 d/t acting out, agitated, and delusional. Pt is eating an estimated 100 % of meals Per Meal/Nutrition Activity Record. Dietary is currently providing an estimated 2017 kcals and 120 gm Pro (x2 days), per Pt PO intake this is providing an estimated 2017 kcals and 120gm Pro to meet 100% kcal and 100 % Pro needs- adequate. Visited pt. after lunch, introduced myself, inquired how she was eating. Pt. stated she was eating just fine. Spoke to pt. about their high TG levels, pt. understood and stated they are watching their fat intake and reducing meat consumption. Recommendation to add a cardiac diet due hx of hyperlipidemia and labs TG 256 (10/10). Pt. nurse Catalina has placed the order to change diet per recommendation. Anthropometrics HT: 58 WT: 186 LB (84.55 kg) ABW: 151 LB (68.64) BMI: 28.28 (Overweight) GI/ Skin Integrity GI: WNL, Soft, Non-Tender BM: 10/11 x1 I/O: 240/Not Noted Skin: WNL, Intact Juan Carlos: 21 Diet Order: [facility] Estimated Energy Needs: ( Geriatric, ABW) 3722-5914 kcals (25-30 kcals/ kg) 69-82g Pro (1.0-1.2 g/kg) 1700- 2000 ml (25-30 ml/kg) Current Diet Order/ Nutrition Support [facility] Pertinent Medications Maalox (PRN), Lipitor, Tegretol, Colace, Glucotrol, MOM, Glucophage, Theragran Pertinent Labs 10/10: Glucose 122, TG 256, HDL 52, Na 124, Ca 8.1, Cl 91 Nutritional Hx/Data Height 1.73 m Height (Calculated Centimeters) 172.7 Current Weight (lbs) 84.368 kg Weight (Calculated Kilograms) 84.4 Weight (Calculated Grams) 04823.2 [place] Body Weight 140 % [place] Body Weight 107 Body Mass Index (BMI) 28.3 Weight Status Overweight GI Symptoms GI Symptoms None Last BM 10/11 Skin Integrity/Comment: Skin: WNL, Intact Juan Carlos: 21 Current %PO Good (75-100%) Estimated Nutritional Goals BEE in Kcals: Adj wt of IBW Calories/Kcals/Kg 25-30 Kcals Calculated 6441-3179 Protein: Adj wt of IBW Protein g/k.0-1.2 Protein Calculated 69-82 Fluid: ml 1700- 2000 ml (25-30 ml/kg) Nutritional Problem 1. Problem Problem Altered nutrition related labs Etiology labs r/t endocrine dysfunction and history of hyperlipidemia Signs/Symptoms: aeb recent laboratory values, Glucose 122, TG 256 Malnutrition Related to Morbid Obesity Malnutrition related to morbid obesity No Intervention/Recommendation Comments 1. Recommendation to add a cardiac diet to current diet rx. 2. Continue antihyperglycemic medications for glucose control per MD order. Expected Outcomes/Goals Expected Outcomes/Goals 1. PO intake to continue to meet >75% of estimated nutritional needs. 2.Monitor PO intake, wt, nutrition related labs, and skin integrity to trend WNL. 3. F/U as low risk in 7-10 days, 10/20-10/23
--- NOTE | 2019-10-27 14:43 | Internal Medicine Prog Note ---
Internal Medicine Subjective - Subjective Service Date: 10/27/19 Patient seen and examined:: without staff (SHE FEELS WELL) Patient is:: awake, verbal, ambulating, talking, confused Per staff patient has:: no adverse event, eating well, confused, tolerating meds Internal Medicine Objective - Results Recent Labs: Laboratory Last Values POC Glucose 104 MG/DL (70 - 105) 10/27/19 11:56 - Physical Exam Vitals and I&O: Vital Signs Temp 97.6 F 10/26/19 20:10 Pulse 90 10/26/19 20:10 Resp 20 10/26/19 20:10 BP 101/50 10/26/19 20:10 Pulse Ox 97 10/26/19 20:10 Intake & Output 10/26/19 10/27/19 10/27/19 18:59 06:59 18:59 Intake Total 1050 240 Balance 1050 240 Intake: Oral 1050 240 Other: # Voids 2 # Bowel Movements 1 Stool Characteristics Soft Formed Brown Active Medications: Current Medications Acetaminophen (Tylenol) 650 mg PO Q4H PRN PRN Reason: Pain (Mild 1-3) Stop: 12/10/19 21:58 Last Admin: 10/26/19 14:29 Dose: 650 mg Acetaminophen (Tylenol) 650 mg PO Q4HR PRN PRN Reason: Temp above 100 Stop: 12/11/19 00:03 Al Hydrox/Mg Hydrox/Simethicone (Maalox) 30 ml PO Q4HR PRN PRN Reason: GI DISTRESS Stop: 12/11/19 00:03 Atorvastatin Calcium (Lipitor) 10 mg PO HS [facility]; Protocol Stop: 12/11/19 20:59 Last Admin: 10/26/19 20:36 Dose: 10 mg Carbamazepine (Tegretol) 200 mg PO TID [facility]; Protocol Stop: 12/11/19 08:59 Last Admin: 10/27/19 08:34 Dose: 200 mg Dextrose (Glutose 40%) 18.75 gm PO PRN PRN PRN Reason: Blood Glucose less than 70 Stop: 12/20/19 18:08 Docusate Sodium (Colace) 100 mg PO BID [facility] Stop: 12/11/19 08:59 Last Admin: 10/27/19 08:34 Dose: Not Given Fluphenazine HCl (Prolixin) 10 mg PO DAILY [facility]; Protocol Stop: 12/24/19 08:59 Last Admin: 10/27/19 08:33 Dose: 10 mg Glipizide (Glucotrol) 5 mg PO BID [facility] Stop: 12/11/19 08:59 Last Admin: 10/27/19 08:34 Dose: 5 mg Glucagon (Glucagen) 1 mg IM PRN PRN PRN Reason: Blood Glucose less than 70 Stop: 12/20/19 18:08 Insulin Human Lispro (Humalog Insulin Sliding Scale) 0 units SUBQ ACHS [facility]; Protocol Stop: 12/20/19 20:59 Last Admin: 10/27/19 06:33 Dose: 2 units Lorazepam (Ativan) 0.5 mg PO Q4HR PRN; Protocol PRN Reason: Anxiety Stop: 12/18/19 13:07 Last Admin: 10/23/19 20:36 Dose: 0.5 mg Magnesium Hydroxide (Milk Of Magnesia) 30 ml PO HS PRN PRN Reason: Constipation Stop: 12/11/19 00:03 Metformin HCl (Glucophage) 1,000 mg PO BID [facility] Stop: 12/11/19 08:59 Last Admin: 10/27/19 08:34 Dose: 1,000 mg Multivitamins/Vitamin C (Theragran) 1 tab PO DAILY [facility] Stop: 12/11/19 08:59 Last Admin: 10/27/19 08:48 Dose: 1 tab Olanzapine 15 mg/ Olanzapine 2 (.5 mg) 17.5 mg PO BID [facility] Stop: 12/26/19 16:59 Zolpidem Tartrate (Ambien) 5 mg PO HS PRN PRN Reason: Insomnia Stop: 12/18/19 11:16 Last Admin: 10/25/19 20:52 Dose: 5 mg General: alert, demented HEENT: NC/AT, PERRLA, EOMI, anicteric sclerae, throat clear Neck: Supple, No JVD, No thyromegaly, +2 carotid pulse wo bruit, No LAD Lungs: CTAB Cardiovascular: Normal S1, Normal S2, without murmur Abdomen: soft, non-tender, non-distended Extremities: clear Neurological: no change, gait stable Internal Medicine Assmt/Plan - Assessment Assessment: 1.DM. 2.HYPERLIPIDEMIA. 3.SEIZURE DISORDER 4.SCHIZO AFFECTIVE DISORDERS - Plan Plan: CONTINUE ON CURRENT MEDICATION AND DIET Nutritional Asmnt/Malnutr-PDOC - Dietary Evaluation Malnutrition Findings (Please click <Entered> for more info): Nutritional Asmnt/Malnutrition Start: 10/14/19 13: 27 Text: Status: Complete Freq: Protocol: Document 10/14/19 13:28 EDVIN (Rec: 10/14/19 13:35 EDVIN [id number]) Nutritional Asmnt/Malnutrition Patient General Information Nutritional Screening Moderate Risk Diagnosis Psychosis Pertinent Medical Hx/Surgical Hx Diabetes mellitus, seizure disorder, hyperlipidemia, schizoaffective disorder Subjective Information Pt is a 49-year-old female admitted on 10/10 d/t acting out, agitated, and delusional. Pt is eating an estimated 100 % of meals Per Meal/Nutrition Activity Record. Dietary is currently providing an estimated 2017 kcals and 120 gm Pro (x2 days), per Pt PO intake this is providing an estimated 2017 kcals and 120gm Pro to meet 100% kcal and 100 % Pro needs- adequate. Visited pt. after lunch, introduced myself, inquired how she was eating. Pt. stated she was eating just fine. Spoke to pt. about their high TG levels, pt. understood and stated they are watching their fat intake and reducing meat consumption. Recommendation to add a cardiac diet due hx of hyperlipidemia and labs TG 256 (10/10). Pt. nurse Catalina has placed the order to change diet per recommendation. Anthropometrics HT: 58 WT: 186 LB (84.55 kg) ABW: 151 LB (68.64) BMI: 28.28 (Overweight) GI/ Skin Integrity GI: WNL, Soft, Non-Tender BM: 10/11 x1 I/O: 240/Not Noted Skin: WNL, Intact Juan Carlos: 21 Diet Order: [facility] Estimated Energy Needs: ( Geriatric, ABW) 6199-4246 kcals (25-30 kcals/ kg) 69-82g Pro (1.0-1.2 g/kg) 1700- 2000 ml (25-30 ml/kg) Current Diet Order/ Nutrition Support [facility] Pertinent Medications Maalox (PRN), Lipitor, Tegretol, Colace, Glucotrol, MOM, Glucophage, Theragran Pertinent Labs 10/10: Glucose 122, TG 256, HDL 52, Na 124, Ca 8.1, Cl 91 Nutritional Hx/Data Height 1.73 m Height (Calculated Centimeters) 172.7 Current Weight (lbs) 84.368 kg Weight (Calculated Kilograms) 84.4 Weight (Calculated Grams) 01068.2 [place] Body Weight 140 % [place] Body Weight 107 Body Mass Index (BMI) 28.3 Weight Status Overweight GI Symptoms GI Symptoms None Last BM 10/11 Skin Integrity/Comment: Skin: WNL, Intact Juan Carlos: 21 Current %PO Good (75-100%) Estimated Nutritional Goals BEE in Kcals: Adj wt of IBW Calories/Kcals/Kg 25-30 Kcals Calculated 4420-9002 Protein: Adj wt of IBW Protein g/k.0-1.2 Protein Calculated 69-82 Fluid: ml 1700- 2000 ml (25-30 ml/kg) Nutritional Problem 1. Problem Problem Altered nutrition related labs Etiology labs r/t endocrine dysfunction and history of hyperlipidemia Signs/Symptoms: aeb recent laboratory values, Glucose 122, TG 256 Malnutrition Related to Morbid Obesity Malnutrition related to morbid obesity No Intervention/Recommendation Comments 1. Recommendation to add a cardiac diet to current diet rx. 2. Continue antihyperglycemic medications for glucose control per MD order. Expected Outcomes/Goals Expected Outcomes/Goals 1. PO intake to continue to meet >75% of estimated nutritional needs. 2.Monitor PO intake, wt, nutrition related labs, and skin integrity to trend WNL. 3. F/U as low risk in 7-10 days, 10/20-10/23
[2019-10-27] MEDS: OLANZapine 15 MG, OLANZapine 2.5 MG PO SCH (17:00)
[2019-10-27] MEDS: Atorvastatin Calcium 10 MG TAB PO SCH (21:20)
[2019-10-28] MEDS: INSULIN LISPRO SLIDING SCALE 100 UNITS/ML UNIT SUBQ SCH ×3 (06:48→16:37)
[2019-10-28] MEDS: OLANZapine 15 MG, OLANZapine 2.5 MG PO SCH ×2 (08:49→16:06)
[2019-10-28] MEDS: Multivitamin Tab PO SCH (08:50)
--- NOTE | 2019-10-28 12:27 | Discharge Summary ---
DATE OF DISCHARGE: 10/28/2019 IDENTIFYING INFORMATION: The patient is a 49-year-old female. CHIEF COMPLAINT: "I need to leave." HISTORY OF PRESENT ILLNESS: ____ The patient has been acting out. She was treated by [facility] because she has been psychotic, agitated, delusional that everyone is against her and wants to harm them and wants to kill her giving her lot of fear. The patient was sent to this facility. She was scratching her face causing it to be red. The patient has been noncompliant with her medication, ____ , minimizing events that led to admission, reports of chemical imbalance. She admits she has tried to cut herself where she was used to being homeless and that is why she was conserved. She denies any current visual hallucination. She is not a very good historian. She is 49 years old, unable to state a safe plan for self-care. Denies substance abuse. She has many hospitalizations in many reasons. She has schizoaffective disorder. She was hospitalized at least 10 times. COURSE IN THE HOSPITAL: Please consider medication on Zyprexa increased to 50 mg twice a day. Also, she was on fluphenazine, which was also increased to 5 mg twice a day, slowly. The patient refused to take carbamazepine, but could not reach her for that reason. She is a second antipsychotic. The patient was continued with atorvastatin, ____ high blood sugar, glucagon and trigeminy term by Dr. Reed. The patient as she improved, she was no longer psychotic. She was sleeping well, eating well. We felt she could be discharged to a lesser level of care. I would like to change olanzapine which was actually increased to 17.5 mg twice a day as the patient is doing well, felt the patient was discharged to a lesser level of care. FINAL DIAGNOSIS: Schizoaffective disorder, bipolar type. MEDICAL DIAGNOSES: As per Dr. Reed, the patient will go back to [place], will follow up with the psychiatrist and primary care physician there. EXPECTED OUTCOME: Stable if the patient complies with the above. JOB# [id number]
== END 2019-10-28 18:40 | DRG 885 ==
LOC: GERO 21:15
PROVIDERS: ADMIT Psychiatry & Neurology Psychiatry; ATTEND Psychiatry & Neurology Psychiatry
DX: F25.0 Schizoaffective disorder, bipolar type (principal); F22 Delusional disorders; E11.9 Type 2 diabetes mellitus without complications; E78.5 Hyperlipidemia, unspecified; G40.909 Epilepsy, unspecified, not intractable, without status epilepticus; F25.9 Schizoaffective disorder, unspecified; Z59.0 Homelessness; Z88.8 Allergy status to other drugs, medicaments and biological substances; Z79.899 Other long term (current) drug therapy; Z79.84 Long term (current) use of oral hypoglycemic drugs
CPT/HCPCS: 82948-90; 83036-90; G0410; Z7610